=== PATIENT | male | born 1950 | race Caucasian/White ===

== ENCOUNTER → 2018-01-08 09:10 | Outpatient (CLI) | payer MEDICARE, SELFPAY ==
[2018-01-08 12:22] LABS: Absolute Lymphocyte Count 1.36 X10^3/ul (0.83-4.51); Absolute Neutrophil Count 3.7 X10^3/uL (2.0-7.7); Basophil# 0.02 X10^3/uL; Basophil% 0.3 % (0-1); Eosinophil# 0.22 X10^3/uL; Eosinophils% 3.8 % (0-5); Hematocrit 48.1 % (40-54); Hemoglobin 15.8 g/dl (13.0-16.5); Lymphocyte # 1.36 X10^3/ul (4.0); Lymphocyte % 23.6 % (19-41); Mean Corp Hgb Conc 32.8 g/gl (32-36); Mean Corpuscular Hgb 30.2 pg (27.0-32.0); Monocyte# 0.43 X10^3/uL; Monocyte% 7.5 % (0-10); Neutrophil # 3.73 X10^3/uL (2.7-7.7); Neutrophil % 64.6 % (47-70); Platelet Count 257 K/mm3 (150-450); RBC Distribution Width CV 13.3 % (11.6-14.6); RBC Distribution Width SD 44.5 fl (35.1-43.9); Red Blood Count 5.23 M/mm3 (4.6-6.2); White Blood Count 5.8 K/mm3 (4.4-11.0)
[2018-01-08 12:29] LABS: POSITIVE COUNT NO; POSITIVE DIFFERENTIAL NO; POSITIVE MORPHOLOGY NO
[2018-01-08 13:19] LABS: AST(SGOT) 15 U/L (15-37); Alanine Aminotransfer ALT/SGPT 29 U/L (16-61); Albumin, Serum 3.6 g/dL (3.2-5.0); Alkaline Phosphatase 65 U/L (45-117); Anion Gap 7 (5-15); BUN 11 mg/dL (7-18); BUN/Creat Ratio 13.2 RATIO (10-20); Calcium,Total 8.6 mg/dL (8.5-10.1); Chloride 104 mmol/L (98-107); Creatinine, Serum 0.84 mg/dL (0.70-1.30); EST Glomerular Filtration Rate 97 mL/min (>60); Est Glom Filt Rate - Afr Amer 118 mL/min (>60); Globulin 3.6 g/dL (2.2-4.2); Glucose 77 mg/dL (74-106); Potassium 3.7 mmol/L (3.5-5.1); Protein, Total 7.2 g/dL (6.4-8.2); Sodium Level 141 mmol/L (136-145)
== END ==
PROVIDERS: Visit Provider Family Medicine Geriatric Medicine
DX: I10 Essential (primary) hypertension (principal)
CPT/HCPCS: 36415; 80053; 84443; 85025

== ENCOUNTER → 2018-07-28 11:01 | Outpatient (CLI) | payer MEDICARE, SELFPAY ==
[2018-07-28 12:28] LABS: Absolute Lymphocyte Count 1.37 X10^3/ul (0.83-4.51); Absolute Neutrophil Count 4.1 X10^3/uL (2.0-7.7); Basophil# 0.04 X10^3/uL; Basophil% 0.7 % (0-1); Eosinophil# 0.16 X10^3/uL; Eosinophils% 2.7 % (0-5); Hematocrit 43.7 % (40-54); Hemoglobin 15.2 g/dl (13.0-16.5); Lymphocyte # 1.37 X10^3/ul (4.0); Lymphocyte % 22.8 % (19-41); Mean Corp Hgb Conc 34.8 g/gl (32-36); Mean Corpuscular Hgb 31.1 pg (27.0-32.0); Mean Corpuscular Volume 89.5 fL (80-94); Monocyte# 0.38 X10^3/uL; Monocyte% 6.3 % (0-10); Neutrophil # 4.05 X10^3/uL (2.7-7.7); Neutrophil % 67.3 % (47-70); POSITIVE COUNT NO; POSITIVE DIFFERENTIAL NO; POSITIVE MORPHOLOGY NO; Platelet Count 243 K/mm3 (150-450); RBC Distribution Width CV 13.7 % (11.6-14.6); RBC Distribution Width SD 44.9 fl (35.1-43.9); Red Blood Count 4.88 M/mm3 (4.6-6.2)
[2018-07-28 12:51] LABS: ALB/GLOB Ratio 1.1 RATIO (0.9-2.4); AST(SGOT) 12 U/L (15-37); Alanine Aminotransfer ALT/SGPT 23 U/L (16-61); Albumin, Serum 3.6 g/dL (3.2-5.0); Alkaline Phosphatase 52 U/L (45-117); Anion Gap 8 (5-15); BUN 10 mg/dL (7-18); BUN/Creat Ratio 11.6 RATIO (10-20); Calcium,Total 8.7 mg/dL (8.5-10.1); Chloride 107 mmol/L (98-107); Creatinine, Serum 0.86 mg/dL (0.70-1.30); EST Glomerular Filtration Rate 94 mL/min (>60); Est Glom Filt Rate - Afr Amer 113 mL/min (>60); Globulin 3.4 g/dL (2.2-4.2); Glucose 92 mg/dL (74-106); PSA,Total - Annual Screen 1.59 ng/mL (0.00-4.00); Sodium Level 143 mmol/L (136-145); Thyroid Stim Hormone (TSH) 1.38 uIU/mL (0.358-3.74)
[2018-07-28 12:54] LABS: Vitamin D,25 Hydroxy 17.4 ng/mL (29.95-100.01)
[2018-07-30 09:48] LABS: Hep C Antibodies <0.1 s/co ratio (0.0-0.9)
== END ==
PROVIDERS: Visit Provider Family Medicine Geriatric Medicine
DX: I10 Essential (primary) hypertension (principal); E55.9 Vitamin D deficiency, unspecified; Z12.5 Encounter for screening for malignant neoplasm of prostate; Z13.89 Encounter for screening for other disorder
CPT/HCPCS: 36415; 80053; 82306; 84153; 84443; 85025; 86803; G0103

== ENCOUNTER → 2019-02-14 15:43 | Outpatient (CLI) | payer MEDICARE, SELFPAY ==
[2019-02-14 17:17] LABS: Absolute Lymphocyte Count 1.65 X10^3/ul (0.83-4.51); Absolute Neutrophil Count 3.9 X10^3/uL (2.0-7.7); Basophil# 0.04 X10^3/uL; Basophil% 0.6 % (0-1); Eosinophil# 0.27 X10^3/uL; Eosinophils% 4.3 % (0-5); Hematocrit 47.3 % (40-54); Hemoglobin 15.6 g/dl (13.0-16.5); Lymphocyte # 1.65 X10^3/ul (4.0); Lymphocyte % 26.2 % (19-41); Mean Corpuscular Hgb 30.2 pg (27.0-32.0); Mean Corpuscular Volume 91.5 fL (80-94); Mean Platelet Vol. 9.8 fl (6.2-12.0); Monocyte# 0.47 X10^3/uL; Monocyte% 7.5 % (0-10); Neutrophil # 3.87 X10^3/uL (2.7-7.7); Neutrophil % 61.4 % (47-70); Platelet Count 248 K/mm3 (150-450); RBC Distribution Width CV 13.9 % (11.6-14.6); RBC Distribution Width SD 45.8 fl (35.1-43.9); Red Blood Count 5.17 M/mm3 (4.6-6.2); White Blood Count 6.3 K/mm3 (4.4-11.0)
[2019-02-14 17:19] LABS: POSITIVE COUNT NO; POSITIVE DIFFERENTIAL NO; POSITIVE MORPHOLOGY NO
[2019-02-14 17:28] LABS: Vitamin D,25 Hydroxy 22.1 ng/mL (29.95-100.01)
[2019-02-14 17:37] LABS: ALB/GLOB Ratio 1.1 RATIO (0.9-2.4); AST(SGOT) 19 U/L (15-37); Alanine Aminotransfer ALT/SGPT 24 U/L (16-61); Albumin, Serum 3.7 g/dL (3.2-5.0); Alkaline Phosphatase 64 U/L (45-117); Anion Gap 4 (5-15); BUN 12 mg/dL (7-18); BUN/Creat Ratio 13.1 RATIO (10-20); Calcium,Total 8.3 mg/dL (8.5-10.1); Chloride 106 mmol/L (98-107); Creatinine, Serum 0.91 mg/dL (0.70-1.30); EST Glomerular Filtration Rate 87 mL/min (>60); Est Glom Filt Rate - Afr Amer 106 mL/min (>60); Globulin 3.5 g/dL (2.2-4.2); Glucose 85 mg/dL (74-106); Potassium 3.7 mmol/L (3.5-5.1); Protein, Total 7.2 g/dL (6.4-8.2); Sodium Level 140 mmol/L (136-145); Thyroid Stim Hormone (TSH) 1.76 uIU/mL (0.358-3.74)
== END ==
PROVIDERS: Visit Provider Family Medicine Geriatric Medicine
DX: I10 Essential (primary) hypertension (principal); E55.9 Vitamin D deficiency, unspecified
CPT/HCPCS: 36415; 80053; 82306; 84443; 85025

== ENCOUNTER → 2019-08-05 | Outpatient (CLI) | payer MEDICARE, SELFPAY ==
[2019-08-05 12:55] LABS: Absolute Lymphocyte Count 1.33 X10^3/uL (0.83-4.51); Absolute Neutrophil Count 5.9 X10^3/uL (2.0-7.7); Basophil# 0.08 X10^3/uL; Eosinophil# 0.28 X10^3/uL; Eosinophils% 3.4 % (0-5); Hematocrit 49.5 % (40-54); Hemoglobin 16.7 g/dL (13.0-16.5); Lymphocyte # 1.33 X10^3/ul (4.0); Lymphocyte % 16.3 % (19-41); Mean Corp Hgb Conc 33.7 g/dL (32-36); Mean Corpuscular Hgb 30.6 pg (27.0-32.0); Mean Corpuscular Volume 90.7 fL (80-94); Mean Platelet Vol. 9.6 fl (6.2-12.0); Monocyte# 0.54 X10^3/uL; Monocyte% 6.6 % (0-10); NRBC Flagged by Analyzer 0 % (0-5); Neutrophil # 5.92 X10^3/uL (2.7-7.7); Neutrophil % 72.6 % (47-70); Platelet Count 263 K/mm3 (150-450); RBC Distribution Width CV 12.7 % (11.6-14.6); RBC Distribution Width SD 41.7 fl (35.1-43.9); Red Blood Count 5.46 M/mm3 (4.6-6.2); White Blood Count 8.2 K/mm3 (4.4-11.0)
[2019-08-05 13:18] LABS: AST(SGOT) 14 U/L (15-37); Alanine Aminotransfer ALT/SGPT 24 U/L (16-61); Albumin, Serum 3.7 g/dL (3.2-5.0); Alkaline Phosphatase 72 U/L (45-117); Anion Gap 3 (5-15); BUN 11 mg/dL (7-18); BUN/Creat Ratio 12.3 RATIO (10-20); Calcium,Total 8.7 mg/dL (8.5-10.1); Chloride 108 mmol/L (98-107); EST Glomerular Filtration Rate 89 mL/min (>60); Est Glom Filt Rate - Afr Amer 108 mL/min (>60); Globulin 3.6 g/dL (2.2-4.2); Glucose 82 mg/dL (74-106); PSA,Total - Annual Screen 3.54 ng/mL (0.00-4.00); Potassium 3.8 mmol/L (3.5-5.1); Protein, Total 7.3 g/dL (6.4-8.2); Sodium Level 142 mmol/L (136-145); Thyroid Stim Hormone (TSH) 1.48 uIU/mL (0.358-3.74)
[2019-08-05 13:33] LABS: Vitamin D,25 Hydroxy 22.1 ng/mL (29.95-100.01)
== END | disposition home or self-care (01) ==
LOC: POLAB3 10:30
PROVIDERS: Visit Provider Family Medicine Geriatric Medicine
DX: E55.9 Vitamin D deficiency, unspecified (principal); I10 Essential (primary) hypertension; Z12.5 Encounter for screening for malignant neoplasm of prostate
CPT/HCPCS: 36415; 80053; 82306; 84153; 84443; 85025; G0103

== ENCOUNTER → 2020-02-01 11:01 | Outpatient (CLI) | payer MEDICARE, SELFPAY ==
[2020-02-01 12:44] LABS: Absolute Lymphocyte Count 1.62 X10^3/uL (0.83-4.51); Absolute Neutrophil Count 4.8 X10^3/uL (2.0-7.7); Basophil# 0.05 X10^3/uL; Basophil% 0.7 % (0-1); Eosinophil# 0.16 X10^3/uL; Eosinophils% 2.2 % (0-5); Hematocrit 45.6 % (40-54); Hemoglobin 15.4 g/dL (13.0-16.5); Lymphocyte # 1.62 X10^3/ul (4.0); Lymphocyte % 22.3 % (19-41); Mean Corp Hgb Conc 33.8 g/dL (32-36); Mean Corpuscular Hgb 30.4 pg (27.0-32.0); Mean Corpuscular Volume 90.1 fL (80-94); Mean Platelet Vol. 9.7 fl (6.2-12.0); Monocyte# 0.62 X10^3/uL; Monocyte% 8.5 % (0-10); NRBC Flagged by Analyzer 0 % (0-5); Platelet Count 282 K/mm3 (150-450); RBC Distribution Width CV 12.7 % (11.6-14.6); RBC Distribution Width SD 41.7 fl (35.1-43.9); Red Blood Count 5.06 M/mm3 (4.6-6.2); White Blood Count 7.3 K/mm3 (4.4-11.0)
[2020-02-01 13:07] LABS: Vitamin D,25 Hydroxy 22.2 ng/mL
[2020-02-01 13:33] LABS: ALB/GLOB Ratio 1.1 RATIO (0.9-2.4); AST(SGOT) 20 U/L (15-37); Alanine Aminotransfer ALT/SGPT 32 U/L (16-61); Albumin, Serum 3.8 g/dL (3.2-5.0); Alkaline Phosphatase 76 U/L (45-117); Anion Gap 6 (5-15); BUN 17 mg/dL (7-18); BUN/Creat Ratio 17.6 RATIO (10-20); Calcium,Total 8.8 mg/dL (8.5-10.1); Chloride 108 mmol/L (98-107); Creatinine, Serum 0.96 mg/dL (0.70-1.30); EST Glomerular Filtration Rate 82 mL/min (>60); Est Glom Filt Rate - Afr Amer 99 mL/min (>60); Globulin 3.6 g/dL (2.2-4.2); Glucose 100 mg/dL (74-106); Potassium 4.1 mmol/L (3.5-5.1); Protein, Total 7.4 g/dL (6.4-8.2); Sodium Level 140 mmol/L (136-145); Thyroid Stim Hormone (TSH) 1.79 uIU/mL (0.358-3.74)
== END ==
PROVIDERS: Visit Provider Family Medicine Geriatric Medicine
DX: I10 Essential (primary) hypertension (principal); E55.9 Vitamin D deficiency, unspecified
CPT/HCPCS: 36415; 80053; 82306; 84443; 85025

== ENCOUNTER → 2020-08-09 09:13 | Outpatient (CLI) | payer MEDICARE, SELFPAY ==
[2020-08-09 12:36] LABS: Absolute Lymphocyte Count 1.46 X10^3/uL (0.83-4.51); Absolute Neutrophil Count 5.4 X10^3/uL (2.0-7.7); Basophil# 0.07 X10^3/uL; Basophil% 0.9 % (0-1); Eosinophil# 0.23 X10^3/uL; Hemoglobin 16.4 g/dL (13.0-16.5); Lymphocyte # 1.46 X10^3/ul (4.0); Lymphocyte % 18.7 % (19-41); Mean Corp Hgb Conc 33.5 g/dL (32-36); Mean Corpuscular Hgb 30.5 pg (27.0-32.0); Mean Corpuscular Volume 91.2 fL (80-94); Mean Platelet Vol. 9.8 fl (6.2-12.0); Monocyte# 0.57 X10^3/uL; Monocyte% 7.3 % (0-10); NRBC Flagged by Analyzer 0 % (0-5); Neutrophil # 5.44 X10^3/uL (2.7-7.7); Neutrophil % 69.8 % (47-70); Platelet Count 290 K/mm3 (150-450); RBC Distribution Width CV 13.1 % (11.6-14.6); RBC Distribution Width SD 43.9 fl (35.1-43.9); Red Blood Count 5.37 M/mm3 (4.6-6.2); White Blood Count 7.8 K/mm3 (4.4-11.0)
[2020-08-09 12:50] LABS: Vitamin D,25 Hydroxy 29.8 ng/mL
[2020-08-09 13:26] LABS: AST(SGOT) 23 U/L (15-37); Alanine Aminotransfer ALT/SGPT 42 U/L (16-61); Albumin, Serum 3.9 g/dL (3.2-5.0); Alkaline Phosphatase 69 U/L (45-117); Anion Gap 6 (5-15); BUN 15 mg/dL (7-18); BUN/Creat Ratio 15.8 RATIO (10-20); Calcium,Total 9.1 mg/dL (8.5-10.1); Chloride 107 mmol/L (98-107); Creatinine, Serum 0.95 mg/dL (0.70-1.30); EST Glomerular Filtration Rate 83 mL/min (>60); Est Glom Filt Rate - Afr Amer 100 mL/min (>60); Globulin 3.8 g/dL (2.2-4.2); Glucose 84 mg/dL (74-106); PSA,Total - Annual Screen 5.38 ng/mL (0.00-4.00); Potassium 4.2 mmol/L (3.5-5.1); Protein, Total 7.7 g/dL (6.4-8.2); Sodium Level 141 mmol/L (136-145)
== END ==
PROVIDERS: PCP Family Medicine Geriatric Medicine; Visit Provider Family Medicine Geriatric Medicine
DX: E55.9 Vitamin D deficiency, unspecified (principal); I10 Essential (primary) hypertension; Z12.5 Encounter for screening for malignant neoplasm of prostate
CPT/HCPCS: 36415; 80053; 82306; 84153; 84443; 85025; G0103

== ENCOUNTER → 2021-02-08 09:03 | Outpatient (CLI) | payer MEDICARE, SELFPAY ==
[2021-02-08 12:17] LABS: Absolute Lymphocyte Count 1.36 X10^3/uL (0.83-4.51); Absolute Neutrophil Count 4.6 X10^3/uL (2.0-7.7); Basophil# 0.06 X10^3/uL; Basophil% 0.9 % (0-1); Eosinophil# 0.23 X10^3/uL; Eosinophils% 3.4 % (0-5); Hematocrit 51.8 % (40-54); Hemoglobin 17.1 g/dL (13.0-16.5); Lymphocyte # 1.36 X10^3/ul (4.0); Lymphocyte % 20.2 % (19-41); Mean Corpuscular Hgb 30.1 pg (27.0-32.0); Mean Corpuscular Volume 91.2 fL (80-94); Mean Platelet Vol. 9.8 fl (6.2-12.0); Monocyte# 0.45 X10^3/uL; Monocyte% 6.7 % (0-10); NRBC Flagged by Analyzer 0 % (0-5); Neutrophil # 4.62 X10^3/uL (2.7-7.7); Neutrophil % 68.5 % (47-70); Platelet Count 331 K/mm3 (150-450); RBC Distribution Width CV 13.1 % (11.6-14.6); RBC Distribution Width SD 43.9 fl (35.1-43.9); Red Blood Count 5.68 M/mm3 (4.6-6.2); White Blood Count 6.7 K/mm3 (4.4-11.0)
[2021-02-08 12:43] LABS: AST(SGOT) 18 U/L (15-37); Alanine Aminotransfer ALT/SGPT 29 U/L (16-61); Albumin, Serum 3.9 g/dL (3.2-5.0); Alkaline Phosphatase 76 U/L (45-117); Anion Gap 5 (5-15); BUN 19 mg/dL (7-18); BUN/Creat Ratio 18.6 RATIO (10-20); Chloride 106 mmol/L (98-107); Creatinine, Serum 1.02 mg/dL (0.70-1.30); EST Glomerular Filtration Rate 76 mL/min (>60); Est Glom Filt Rate - Afr Amer 93 mL/min (>60); Glucose 80 mg/dL (74-106); Potassium 3.6 mmol/L (3.5-5.1); Protein, Total 7.9 g/dL (6.4-8.2); Sodium Level 142 mmol/L (136-145); Thyroid Stim Hormone (TSH) 1.92 uIU/mL (0.358-3.74)
== END ==
PROVIDERS: PCP Family Medicine Geriatric Medicine; Visit Provider Family Medicine Geriatric Medicine
DX: E55.9 Vitamin D deficiency, unspecified (principal); F52.8 Other sexual dysfunction not due to a substance or known physiological condition; I10 Essential (primary) hypertension
CPT/HCPCS: 36415; 80053; 82306; 84403; 84443; 85025

== ENCOUNTER → 2021-08-21 10:21 | Outpatient (CLI) | payer MEDICARE, SELFPAY ==
[2021-08-21 12:22] LABS: Absolute Lymphocyte Count 1.41 X10^3/uL (0.83-4.51); Absolute Neutrophil Count 5.3 X10^3/uL (2.0-7.7); Basophil# 0.07 X10^3/uL; Basophil% 0.9 % (0-1); Eosinophils% 2.7 % (0-5); Hemoglobin 16.2 g/dL (13.0-16.5); Lymphocyte # 1.41 X10^3/ul (0.83-4.51); Lymphocyte % 18.7 % (19-41); Mean Corp Hgb Conc 33.8 g/dL (32-36); Mean Corpuscular Hgb 30.3 pg (27.0-32.0); Mean Corpuscular Volume 89.7 fL (80-94); Mean Platelet Vol. 9.5 fl (6.2-12.0); Monocyte# 0.56 X10^3/uL; Monocyte% 7.4 % (0-10); NRBC Flagged by Analyzer 0 % (0-5); Neutrophil # 5.27 X10^3/uL (2.7-7.7); Platelet Count 295 K/mm3 (150-450); RBC Distribution Width CV 13.2 % (11.6-14.6); RBC Distribution Width SD 43.2 fl (35.1-43.9); Red Blood Count 5.35 M/mm3 (4.6-6.2); White Blood Count 7.5 K/mm3 (4.4-11.0)
[2021-08-21 12:50] LABS: ALB/GLOB Ratio 0.8 RATIO (0.9-2.4); AST(SGOT) 18 U/L (15-37); Alanine Aminotransfer ALT/SGPT 29 U/L (16-61); Albumin, Serum 3.5 g/dL (3.2-5.0); Alkaline Phosphatase 68 U/L (45-117); Anion Gap 5 (5-15); BUN 19 mg/dL (7-18); BUN/Creat Ratio 19.3 RATIO (10-20); Calcium,Total 9.4 mg/dL (8.5-10.1); Chloride 106 mmol/L (98-107); Creatinine, Serum 0.99 mg/dL (0.70-1.30); EST Glomerular Filtration Rate 79 mL/min (>60); Est Glom Filt Rate - Afr Amer 96 mL/min (>60); Globulin 4.2 g/dL (2.2-4.2); Glucose 73 mg/dL (74-106); Potassium 4.1 mmol/L (3.5-5.1); Protein, Total 7.7 g/dL (6.4-8.2); Sodium Level 141 mmol/L (136-145); Thyroid Stim Hormone (TSH) 1.65 uIU/mL (0.358-3.74)
== END ==
PROVIDERS: PCP Family Medicine Geriatric Medicine; Visit Provider Family Medicine Geriatric Medicine
DX: E55.9 Vitamin D deficiency, unspecified (principal); I10 Essential (primary) hypertension
CPT/HCPCS: 36415; 80053; 82306; 84443; 85025

== ENCOUNTER 2022-02-19 09:44 | Outpatient (CLI) | payer MEDICARE, SELFPAY ==
[2022-02-19 12:27] LABS: Absolute Lymphocyte Count 1.11 X10^3/uL (0.83-4.51); Absolute Neutrophil Count 4.9 X10^3/uL (2.0-7.7); Basophil# 0.07 X10^3/uL; Eosinophil# 0.18 X10^3/uL; Eosinophils% 2.6 % (0-5); Hematocrit 45.7 % (40-54); Hemoglobin 15.5 g/dL (13.0-16.5); Lymphocyte # 1.11 X10^3/ul (0.83-4.51); Lymphocyte % 16.1 % (19-41); Mean Corp Hgb Conc 33.9 g/dL (32-36); Mean Corpuscular Hgb 30.5 pg (27.0-32.0); Mean Corpuscular Volume 89.8 fL (80-94); Mean Platelet Vol. 9.7 fl (6.2-12.0); Monocyte# 0.62 X10^3/uL; NRBC Flagged by Analyzer 0 % (0-5); Neutrophil # 4.88 X10^3/uL (2.7-7.7); Platelet Count 299 K/mm3 (150-450); RBC Distribution Width SD 42.7 fl (35.1-43.9); Red Blood Count 5.09 M/mm3 (4.6-6.2); White Blood Count 6.9 K/mm3 (4.4-11.0)
[2022-02-19 12:41] LABS: Vitamin D,25 Hydroxy 26.9 ng/mL
[2022-02-19 12:52] LABS: ALB/GLOB Ratio 0.9 RATIO (0.9-2.4); AST(SGOT) 18 U/L (15-37); Alanine Aminotransfer ALT/SGPT 31 U/L (16-61); Albumin, Serum 3.7 g/dL (3.2-5.0); Alkaline Phosphatase 64 U/L (45-117); Anion Gap 6 (5-15); BUN 23 mg/dL (7-18); BUN/Creat Ratio 22.5 RATIO (10-20); Calcium,Total 9.4 mg/dL (8.5-10.1); Chloride 105 mmol/L (98-107); Creatinine, Serum 1.02 mg/dL (0.70-1.30); EST Glomerular Filtration Rate 76 mL/min (>60); Est Glom Filt Rate - Afr Amer 92 mL/min (>60); Globulin 3.9 g/dL (2.2-4.2); Glucose 89 mg/dL (74-106); Potassium 3.7 mmol/L (3.5-5.1); Protein, Total 7.6 g/dL (6.4-8.2); Sodium Level 140 mmol/L (136-145); Thyroid Stim Hormone (TSH) 2.22 uIU/mL (0.358-3.74)
== END 2022-02-19 23:59 | disposition home or self-care (01) ==
LOC: POLAB3 09:45
PROVIDERS: PCP Family Medicine Geriatric Medicine; Visit Provider Family Medicine Geriatric Medicine
DX: E55.9 Vitamin D deficiency, unspecified (principal); I10 Essential (primary) hypertension
CPT/HCPCS: 36415; 80053; 82306; 84443; 85025

== ENCOUNTER 2022-03-19 09:00 | Outpatient (RCR) | payer MEDICARE, SELFPAY ==
--- NOTE | 2022-02-27 08:44 | HP.PTEVAL ---
Patient's Visit Information TYRONE CARUSO is a 71 year old M referred to Physical Therapy by Dr. Eriberto Her MD with a diagnosis of R groin strain. Date of Evaluation: 02/27/22 Physical Therapist: Eric Weber DPT - Visit Plan Frequency: 1-2x /Week Duration: 4 Weeks Plan: Start with PA R hip mobs to restore hip extension, progress to joint mobs with distraction multidirectional. Hip flexor, quad, HS stretching. Add in glute and hip abd strengthening. May use long axis distraction as pain relieving manuever. Add in gait instruction. HEP 02/27/22: long sitting HS stretch 3x30- tight, supine clamshell PTB 3x10, supine bridge 3x10, standing hip flexor stretch 3x30- tight - Subjective Pt. is here today for his initial evaluation with diagnosis of R groin strain. He reports no mechanism of injury, but has been progressively getting worse. He did report working a local [employer] and maybe lifting there irritated there. He has increased pain with with rolling over in bed, getting up and down. Stiffness reported in AMs and with prolonged sitting. He does ambulate with a limp secondary to pain. He has tried some OTC medications with mild relief. No N/T in either LE. Pt. reports pain with twisting as well. He is retired. He is hopeful to reduce symptoms in order to get back to all recreational activities. He does report riding his bike outside - Pain R groin region Pain Intensity (Out of 10): 1 Pain Intensity Range: 0, 6 - Objective POSTURE: Pt. has slight increase in wt. shifting to L side. Normal iliac crest heights. PALPATION: Pt. has tenderness at anterior hip, including hip flexor and rectus femoris tendon. NEURO: Pt has normal DTR of B Achilles and Patellar tendons. Pt. has normal sensation to light and sharp touch. Pt. is able to rise on heels and toes without issues. ROM: L hip: flexion 110deg, abd 40deg, ER 45deg, IR 30deg, ext 15deg. No pain noted with L hip testing. R hip: flexion 80deg increase in groin pain, abd 30deg (tightness noted), ext 0deg increase in groin pain, ER 40deg (tightness noted), IR 0deg increase in groin pain. MMT: distal LEs 5/5 throughout. L hip: flexion 25#, abd 18#, ext 12#. R hip: flexion 12# increase NW, abd 12# increase NE, ext 5# increase NW. GAIT: Pt. ambulates without AD. He tends to rotation through lumbar spine to R side during L stance phase. He tries to avoid R hip extension secondary to pain and stiffness. He does have an antalgic pattern during R stance phase as well. - Special Tests R Hip Scour: Positive R Hip CASE - Intraarticular Pathology: Positive R Hip FADDIR - Labrum: Positive - Balance/Special Test Scores Lower Extremity Functional Score: 51 - Goals Goal 1:: LTG: Pt. to be I with HEP for hip strengthening, and ROM. Goal Time Frame: 4-6 Weeks Goal 2:: STG: pt. to sleep throughout the night without increase in symptoms. Goal Time Frame: 2-4 Weeks Goal 3:: LTG: pt. to have increased R hip extension to 10deg, IR to 10deg, and flexion to 90deg with out increase in symptoms. Goal Time Frame: 4-6 Weeks Goal 4:: LTG: pt. to ambulate with normal gait pattern with reduced trunk rotation to make up for lack of R hip extension. Goal Time Frame: 4-6 Weeks Goal 5:: LTG: Pt. to negotiate steps with 1 HR without increase in symptoms. Goal Time Frame: 4-6 Weeks - Rehabilitation Potential Physical Therapy Diagnosis: Pt. has signs and symptoms consistent with R hip pain. After doing his testing, he appears to have signs of more R hip OA secondary to reports of stiffness in AMs and after prolonged sitting; very limited flexion, extension and IR motions. He would benefit from PT to work on restoring his motion, progressing his glute/hip strength and restoring is normal gait pattern. Rehabilitation Potential: Good - Anticipated Interventions Patient/Client Instruction: Educate patient on: Condition, Plan of Care, Risk Factors, Benefits of Fitness Program For the Purpose of:: To improve health and function, To foster healthy habits, To improve decision making, To facilitate caregiver knowledge, To improve self management, To prevent re-injury, To improve ability to perform tasks related to life management Manual Therapy Techniques to Include: Mobilization, Passive ROM For the Purpose of:: To decrease pain, To decrease swelling/inflammation, To increase ROM Thank you for the opportunity to evaluate your patient. For Medicare and Medicare HMO plans, please review the plan of care and approve it. It will need to be FAXED BACK to us at [phone] for Medicare purposes. For Medicare only, by signing this I certify the plan of care. Please let me know if there are questions or concerns regarding this plan of care. Physician Signature: Date:
== END 2022-03-19 19:00 | disposition home or self-care (01) ==
LOC: PT 09:00
PROVIDERS: PCP Family Medicine Geriatric Medicine; Referring Provider Family Medicine Geriatric Medicine; Visit Provider Family Medicine Geriatric Medicine
DX: S76.011D Strain of muscle, fascia and tendon of right hip, subsequent encounter (principal)
CPT/HCPCS: 97110; 97140; 97161

== ENCOUNTER → 2022-08-28 | Outpatient (CLI) | payer MEDICARE, SELFPAY ==
[2022-08-28 17:01] LABS: Absolute Lymphocyte Count 1.72 X10^3/uL (0.83-4.51); Absolute Neutrophil Count 6.5 X10^3/uL (2.0-7.7); Basophil# 0.08 X10^3/uL; Basophil% 0.8 % (0-1); Eosinophil# 0.34 X10^3/uL; Eosinophils% 3.6 % (0-5); Hematocrit 44.9 % (40-54); Hemoglobin 15.5 g/dL (13.0-16.5); Lymphocyte # 1.72 X10^3/ul (0.83-4.51); Lymphocyte % 18.1 % (19-41); Mean Corp Hgb Conc 34.5 g/dL (32-36); Mean Corpuscular Hgb 31.1 pg (27.0-32.0); Mean Platelet Vol. 9.5 fl (6.2-12.0); Monocyte# 0.82 X10^3/uL; Monocyte% 8.6 % (0-10); NRBC Flagged by Analyzer 0 % (0-5); Neutrophil % 68.6 % (47-70); Platelet Count 309 K/mm3 (150-450); RBC Distribution Width CV 13.4 % (11.6-14.6); RBC Distribution Width SD 44.1 fl (35.1-43.9); Red Blood Count 4.99 M/mm3 (4.6-6.2); White Blood Count 9.5 K/mm3 (4.4-11.0)
[2022-08-28 17:04] LABS: Vitamin D,25 Hydroxy 50.4 ng/mL
[2022-08-28 17:17] LABS: AST(SGOT) 21 U/L (15-37); Alanine Aminotransfer ALT/SGPT 34 U/L (16-61); Albumin, Serum 3.7 g/dL (3.2-5.0); Alkaline Phosphatase 61 U/L (45-117); Anion Gap 10 (5-15); BUN 23 mg/dL (7-18); BUN/Creat Ratio 20.2 RATIO (10-20); Calcium,Total 8.9 mg/dL (8.5-10.1); Chloride 106 mmol/L (98-107); Creatinine, Serum 1.14 mg/dL (0.70-1.30); EST Glomerular Filtration Rate 67 mL/min (>60); Est Glom Filt Rate - Afr Amer 81 mL/min (>60); Globulin 3.6 g/dL (2.2-4.2); Glucose 109 mg/dL (74-106); Potassium 3.8 mmol/L (3.5-5.1); Protein, Total 7.3 g/dL (6.4-8.2); Sodium Level 142 mmol/L (136-145); Thyroid Stim Hormone (TSH) 2.08 uIU/mL (0.358-3.74)
== END | disposition home or self-care (01) ==
LOC: POLAB3 12:54
PROVIDERS: PCP Family Medicine Geriatric Medicine; Visit Provider Family Medicine Geriatric Medicine
DX: E55.9 Vitamin D deficiency, unspecified (principal); I10 Essential (primary) hypertension
CPT/HCPCS: 36415; 80053; 82306; 84443; 85025

== ENCOUNTER → 2023-02-26 | Outpatient (CLI) | payer MEDICARE, SELFPAY ==
[2023-02-26 17:24] LABS: Absolute Lymphocyte Count 1.63 X10^3/uL (0.83-4.51); Absolute Neutrophil Count 5.1 X10^3/uL (2.0-7.7); Basophil# 0.07 X10^3/uL; Basophil% 0.9 % (0-1); Eosinophil# 0.24 X10^3/uL; Eosinophils% 3.1 % (0-5); Hematocrit 45.2 % (40-54); Hemoglobin 15.3 g/dL (13.0-16.5); Lymphocyte # 1.63 X10^3/ul (0.83-4.51); Lymphocyte % 21.4 % (19-41); Mean Corp Hgb Conc 33.8 g/dL (32-36); Mean Corpuscular Hgb 30.8 pg (27.0-32.0); Mean Corpuscular Volume 91.1 fL (80-94); Mean Platelet Vol. 9.3 fl (6.2-12.0); Monocyte% 7.9 % (0-10); NRBC Flagged by Analyzer 0 % (0-5); Neutrophil # 5.08 X10^3/uL (2.7-7.7); Neutrophil % 66.6 % (47-70); Platelet Count 287 K/mm3 (150-450); RBC Distribution Width CV 13.3 % (11.6-14.6); RBC Distribution Width SD 44.7 fl (35.1-43.9); Red Blood Count 4.96 M/mm3 (4.6-6.2); White Blood Count 7.6 K/mm3 (4.4-11.0)
[2023-02-26 17:43] LABS: AST(SGOT) 20 U/L (15-37); Alanine Aminotransfer ALT/SGPT 35 U/L (16-61); Albumin, Serum 3.5 g/dL (3.2-5.0); Alkaline Phosphatase 71 U/L (45-117); Anion Gap 6 (5-15); BUN 20 mg/dL (7-18); BUN/Creat Ratio 20.7 RATIO (10-20); Calcium,Total 8.8 mg/dL (8.5-10.1); Chloride 104 mmol/L (98-107); Creatinine, Serum 0.97 mg/dL (0.70-1.30); EST Glomerular Filtration Rate 81 mL/min (>60); Est Glom Filt Rate - Afr Amer 98 mL/min (>60); Globulin 3.5 g/dL (2.2-4.2); Glucose 104 mg/dL (74-106); Potassium 3.4 mmol/L (3.5-5.1); Sodium Level 140 mmol/L (136-145); Thyroid Stim Hormone (TSH) 1.42 uIU/mL (0.358-3.74)
[2023-02-26 17:56] LABS: Vitamin D,25 Hydroxy 32.6 ng/mL
== END | disposition home or self-care (01) ==
LOC: POLAB3 14:17
PROVIDERS: PCP Family Medicine Geriatric Medicine; Visit Provider Family Medicine Geriatric Medicine
DX: E55.9 Vitamin D deficiency, unspecified (principal); I10 Essential (primary) hypertension; F52.8 Other sexual dysfunction not due to a substance or known physiological condition
CPT/HCPCS: 36415; 80053; 82306; 84403; 84443; 85025

== ENCOUNTER → 2024-03-16 | Outpatient (CLI) | payer MEDICARE, SELFPAY ==
[2024-03-16 11:36] LABS: Absolute Lymphocyte Count 1.51 X10^3/uL (0.83-4.51); Absolute Neutrophil Count 4.5 X10^3/uL (2.0-7.7); Basophil# 0.05 X10^3/uL; Basophil% 0.7 % (0-1); Eosinophil# 0.19 X10^3/uL; Eosinophils% 2.8 % (0-5); Hematocrit 44.2 % (40-54); Hemoglobin 14.8 g/dL (13.0-16.5); Lymphocyte # 1.51 X10^3/ul (0.83-4.51); Lymphocyte % 22.2 % (19-41); Mean Corp Hgb Conc 33.5 g/dL (32-36); Mean Corpuscular Hgb 30.7 pg (27.0-32.0); Mean Corpuscular Volume 91.7 fL (80-94); Mean Platelet Vol. 9.1 fl (6.2-12.0); Monocyte# 0.53 X10^3/uL; Monocyte% 7.8 % (0-10); NRBC Flagged by Analyzer 0 % (0-5); Neutrophil # 4.49 X10^3/uL (2.7-7.7); Neutrophil % 66.2 % (47-70); Platelet Count 263 K/mm3 (150-450); RBC Distribution Width CV 13.1 % (11.6-14.6); Red Blood Count 4.82 M/mm3 (4.6-6.2); White Blood Count 6.8 K/mm3 (4.4-11.0)
[2024-03-16 12:30] LABS: Vitamin D,25 Hydroxy 27.8 ng/mL
[2024-03-16 14:27] LABS: ALB/GLOB Ratio 1.1 RATIO (0.9-2.4); AST(SGOT) 21 U/L (15-37); Alanine Aminotransfer ALT/SGPT 28 U/L (16-61); Albumin, Serum 3.8 g/dL (3.2-5.0); Alkaline Phosphatase 62 U/L (45-117); Anion Gap 4 (5-15); BUN 20 mg/dL (7-18); BUN/Creat Ratio 19.8 RATIO (10-20); Calcium,Total 9.1 mg/dL (8.5-10.1); Chloride 106 mmol/L (98-107); Creatinine, Serum 1.01 mg/dL (0.70-1.30); EST Glomerular Filtration Rate 77 mL/min (>60); Est Glom Filt Rate - Afr Amer 93 mL/min (>60); Globulin 3.6 g/dL (2.2-4.2); Glucose 90 mg/dL (74-106); Potassium 4.2 mmol/L (3.5-5.1); Protein, Total 7.4 g/dL (6.4-8.2); Sodium Level 140 mmol/L (136-145); Thyroid Stim Hormone (TSH) 1.81 uIU/mL (0.358-3.74)
== END | disposition home or self-care (01) ==
LOC: POLAB3 10:38
PROVIDERS: PCP Family Medicine Geriatric Medicine; Visit Provider Family Medicine Geriatric Medicine
DX: I10 Essential (primary) hypertension (principal); E55.9 Vitamin D deficiency, unspecified
CPT/HCPCS: 36415; 80053; 82306; 84443; 85025

== ENCOUNTER → 2024-09-23 | Outpatient (CLI) | payer MEDICARE, SELFPAY ==
[2024-09-23 10:32] LABS: Absolute Lymphocyte Count 2.21 X10^3/uL (0.83-4.51); Absolute Neutrophil Count 7.6 X10^3/uL (2.0-7.7); Basophil# 0.06 X10^3/uL; Basophil% 0.5 % (0-1); Eosinophil# 0.27 X10^3/uL; Eosinophils% 2.5 % (0-5); Hemoglobin 16.5 g/dL (13.0-16.5); Lymphocyte # 2.21 X10^3/ul (0.83-4.51); Lymphocyte % 20.3 % (19-41); Mean Corp Hgb Conc 34.4 g/dL (32-36); Mean Corpuscular Hgb 31.1 pg (27.0-32.0); Mean Corpuscular Volume 90.4 fL (80-94); Mean Platelet Vol. 8.8 fl (6.2-12.0); Monocyte% 6.4 % (0-10); NRBC Flagged by Analyzer 0 % (0-5); Neutrophil # 7.56 X10^3/uL (2.7-7.7); Neutrophil % 69.3 % (47-70); Platelet Count 405 K/mm3 (150-450); RBC Distribution Width CV 12.9 % (11.6-14.6); RBC Distribution Width SD 42.7 fl (35.1-43.9); Red Blood Count 5.31 M/mm3 (4.6-6.2); White Blood Count 10.9 K/mm3 (4.4-11.0)
[2024-09-23 10:58] LABS: Vitamin D,25 Hydroxy 21.4 ng/mL
[2024-09-23 11:35] LABS: ALB/GLOB Ratio 0.9 RATIO (0.9-2.4); AST(SGOT) 19 U/L (15-37); Alanine Aminotransfer ALT/SGPT 43 U/L (16-61); Albumin, Serum 3.7 g/dL (3.2-5.0); Alkaline Phosphatase 63 U/L (45-117); Anion Gap 6 (5-15); BUN 27 mg/dL (7-18); BUN/Creat Ratio 25.2 RATIO (10-20); Calcium,Total 9.5 mg/dL (8.5-10.1); Chloride 103 mmol/L (98-107); Creatinine, Serum 1.07 mg/dL (0.70-1.30); EST Glomerular Filtration Rate 72 mL/min (>60); Est Glom Filt Rate - Afr Amer 87 mL/min (>60); Globulin 3.9 g/dL (2.2-4.2); Glucose 94 mg/dL (74-106); Potassium 3.8 mmol/L (3.5-5.1); Protein, Total 7.6 g/dL (6.4-8.2); Sodium Level 139 mmol/L (136-145)
== END | disposition home or self-care (01) ==
LOC: LAB 09:31
PROVIDERS: PCP Family Medicine Geriatric Medicine; Referring Provider Family Medicine Geriatric Medicine; Visit Provider Family Medicine Geriatric Medicine
DX: I10 Essential (primary) hypertension (principal); E55.9 Vitamin D deficiency, unspecified
CPT/HCPCS: 36415; 80053; 82306; 84443; 85025

== ENCOUNTER → 2025-02-20 | Outpatient (CLI) | payer MEDICARE, SELFPAY ==
--- NOTE | 2025-02-20 16:12 | RAD_ITS ---
EXAM: Knee four views left CLINICAL HISTORY: Pain COMPARISON: None available TECHNIQUE: Four views of the left knee; AP, lateral, tunnel and sunrise views FINDINGS: No fracture, dislocation or joint effusion. Appearance of mild joint space narrowing at the medial compartment. Otherwise the joint spaces appear within limits. No osteophyte formation, osseous lesion or periosteal reaction identified. Soft tissues appear within limits. RAD/Knee 4 or More Views IMPRESSION: Suggestion of mild medial compartment joint space narrowing. Study otherwise a ppears within limits. Reading Location: [id number]
--- NOTE | 2025-02-20 16:12 | RAD_ITS ---
EXAM: XR Lumbosacral Spine Flexion/Extension Only, 2 or 3 Views CLINICAL INDICATION: LOW BACK PAIN TECHNIQUE: Lateral flexion/extension views of the lumbar spine and sacrum. COMPARISON: No relevant prior studies available. FINDINGS: VERTEBRAE: Mild vertebral height loss of L3 and L4 vertebral bodies. Multilevel endplate degenerative changes and disc disease of L1-S1. Moderate facet arthropathy L4-S1. No acute fracture. Normal sagittal alignment. No instability. SACRUM/COCCYX: Unremarkable as visualized. No acute fracture. DISC SPACES: No acute findings. No significant narrowing. SOFT TISSUES: Unremarkable. RAD/L/S Spine Min 4 Views IMPRESSION: Degenerative changes as above. Reading Location: [facility]
== END | disposition home or self-care (01) ==
LOC: RAD 16:11
PROVIDERS: PCP Family Medicine Geriatric Medicine; Referring Provider Family Medicine Geriatric Medicine; Visit Provider Family Medicine Geriatric Medicine
DX: M54.50 Low back pain, unspecified (principal); M25.562 Pain in left knee
CPT/HCPCS: 72110; 73564

== ENCOUNTER → 2025-04-05 | Outpatient (CLI) | payer MEDICARE, SELFPAY ==
[2025-04-05 11:00] LABS: Absolute Lymphocyte Count 1.57 X10^3/uL (0.83-4.51); Absolute Neutrophil Count 6.2 X10^3/uL (2.0-7.7); Basophil# 0.06 X10^3/uL; Basophil% 0.7 % (0-1); Eosinophil# 0.16 X10^3/uL; Eosinophils% 1.8 % (0-5); Hematocrit 45.7 % (40-54); Hemoglobin 15.8 g/dL (13.0-16.5); Lymphocyte # 1.57 X10^3/ul (0.83-4.51); Mean Corp Hgb Conc 34.6 g/dL (32-36); Mean Corpuscular Hgb 30.9 pg (27.0-32.0); Mean Corpuscular Volume 89.3 fL (80-94); Mean Platelet Vol. 8.9 fl (6.2-12.0); Monocyte# 0.72 X10^3/uL; Monocyte% 8.3 % (0-10); NRBC Flagged by Analyzer 0 % (0-5); Neutrophil # 6.17 X10^3/uL (2.7-7.7); Neutrophil % 70.7 % (47-70); Platelet Count 312 K/mm3 (150-450); RBC Distribution Width CV 13.2 % (11.6-14.6); Red Blood Count 5.12 M/mm3 (4.6-6.2); White Blood Count 8.7 K/mm3 (4.4-11.0)
[2025-04-05 11:37] LABS: ALB/GLOB Ratio 1.3 RATIO (0.9-2.4); AST(SGOT) 24 U/L (<=37); Alanine Aminotransfer ALT/SGPT 24 U/L (<=46); Alkaline Phosphatase 63 U/L (40-129); Anion Gap 10 (5-15); BUN 18 mg/dL (4-19); BUN/Creat Ratio 17.7 RATIO (10-20); Calcium,Total 9.7 mg/dL (7.6-11.0); Carbon Dioxide 26.8 mmol/L (21.0-32.0); Chloride 102 mmol/L (98-108); EST Glomerular Filtration Rate 78 (>60); Glucose 95 mg/dL (70-99); Potassium 4.1 mmol/L (3.3-5.1); Protein, Total 7.1 g/dL (5.9-8.4); Sodium Level 140 mmol/L (133-145); Total Bilirubin 0.55 mg/dL (0.00-1.30)
== END | disposition home or self-care (01) ==
LOC: LAB 09:53
PROVIDERS: PCP Family Medicine Geriatric Medicine; Referring Provider Family Medicine Geriatric Medicine; Visit Provider Family Medicine Geriatric Medicine
DX: I10 Essential (primary) hypertension (principal); E55.9 Vitamin D deficiency, unspecified
CPT/HCPCS: 36415; 80053; 84443; 85025

== ENCOUNTER → 2025-05-08 | Outpatient (CLI) | payer MEDICARE, SELFPAY ==
--- NOTE | 2025-05-08 10:00 | RAD_ITS ---
PROCEDURE: ANKLE MIN 3 VIEWS 05/08/2025 REASON FOR EXAM: PAIN IN RIGHT ANKLE AND SWELLING TECHNIQUE: Three views of the right ankle were obtained. COMPARISON: None. FINDINGS: There is no evidence of fracture or dislocation. There are no significant joint space abnormalities. There is a large plantar spur. The periarticular soft tissues are normal. RAD/Ankle min 3 Views IMPRESSION: Normal right ankle. Heel spur. Reading Location: [place] [id number]
[2025-05-08 11:02] LABS: Erythrocyte Sedimentation Rate 16 mm/hr (0-20)
[2025-05-08 11:06] LABS: Absolute Lymphocyte Count 1.82 X10^3/uL (0.83-4.51); Absolute Neutrophil Count 7.4 X10^3/uL (2.0-7.7); Basophil# 0.06 X10^3/uL; Basophil% 0.6 % (0-1); Eosinophil# 0.15 X10^3/uL; Eosinophils% 1.4 % (0-5); Hematocrit 44.8 % (40-54); Hemoglobin 15.5 g/dL (13.0-16.5); Lymphocyte # 1.82 X10^3/ul (0.83-4.51); Lymphocyte % 17.5 % (19-41); Mean Corp Hgb Conc 34.6 g/dL (32-36); Mean Corpuscular Hgb 31.4 pg (27.0-32.0); Mean Corpuscular Volume 90.9 fL (80-94); Mean Platelet Vol. 9.1 fl (6.2-12.0); Monocyte# 0.92 X10^3/uL; Monocyte% 8.9 % (0-10); NRBC Flagged by Analyzer 0 % (0-5); Neutrophil % 71.3 % (47-70); Platelet Count 318 K/mm3 (150-450); RBC Distribution Width CV 13.6 % (11.6-14.6); RBC Distribution Width SD 45.5 fl (35.1-43.9); Red Blood Count 4.93 M/mm3 (4.6-6.2); White Blood Count 10.4 K/mm3 (4.4-11.0)
[2025-05-08 11:44] LABS: Anion Gap 11 (5-15); BUN 20 mg/dL (4-19); BUN/Creat Ratio 19.1 RATIO (10-20); Calcium,Total 9.6 mg/dL (7.6-11.0); Carbon Dioxide 28.4 mmol/L (21.0-32.0); Chloride 101 mmol/L (98-108); Creatinine, Serum 1.06 mg/dL (0.70-1.20); EST Glomerular Filtration Rate 73 (>60); Glucose 98 mg/dL (70-99); Potassium 3.7 mmol/L (3.3-5.1); Sodium Level 140 mmol/L (133-145)
--- OUTSIDE RECORDS SUMMARY | 2025-05-08 22:06 | XMS RPT_ITS | CCD ---
Author Organization [facility] Care Team Providers Care Medical Safety Director Name Role Phone Unavailable Primary Care Provider Unavailabl e SELF Referring Unavailable NATHALY RODRIGEZ Attending Unavailable PADMINI PARRA Attending Unavailable Unavailable Primary Care Provider Unavailmauri Her MD, Dr. Eriberto Clay Primary Care Provider Arden LÓPEZ, Dr. Eriberto Clay Attending Provider Arden LÓPEZ, Dr. Eriberto Clay Referring Provider [phone] Mike Jaime Attending Provider Redd LÓPEZ, Dr. Jae Johnson Attending Provider Redd LÓPEZ, Dr. Jae Johnson Referring Provider Redd LÓPEZ, Dr. Jae Johnson Attending Provider Redd LÓPEZ, Dr. Jae Johnson Referring Provider Arden, Eriberto Chi Primary Care Unavailable Arden, Eriberto Chi Attending Unavailable Arden, Eriberto Chi Referring Unavailable Arden, Eriberto Chi Primary Care Unavailable Arden, Eriberto Chi Attending Unavailable Arden, Eriberto Chi Referring Unavailable Arden, Eriberto Chi Attending Unavailable Arden, Eriberto Chi Referring Unavailable Arden, Eriberto Chi Primary Care Unavailable Arden, Eriberto Chi Primary Care Unavailable Jae Rainey Attending Unavailable Jae Rainey Referring Unavailable Arden, Eriberto Chi Primary Care Unavailable Mike Jaime Attending Unavailable Arden, Eriberto Chi Referring Unavailable Mike Jaime Attending Unavailable Arden, Eriberto Chi Referring Unavailable Arden, Eriberto Chi Primary Care Unavailable Arden, Eriberto Chi Primary Care Unavailable Kamar Quinones Attending Unavailable Arden, Eriberto Chi Referring Unavailable Medications Current Medications Medication Drug Class(es) Dates Sig (Normalized) Sig (Original) CPAP/BIPAP/OTHER (5 sources) Start: 01-01-2024 End: 05-18-2051 CPAP/BIPAP/OTHER Supplies : Settings 8 - 15 cm H2O, suitable mask per pt preference, chin strap, head gear, humidity, tubing, lifetime supplies. 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 1 Each 0 01/01/2024 05/18/2051 Active Start: 01-28-2023 End: 06-14-2050 CPAP/BIPAP/OTHER Type .CPAPS ettings into a note to see current settings/supplies/DME information. 1 Each 0 01/28/2023 06/14/2050 Active Comment on above: Type .CPAPSettings i nto a note to see current settings/supplies/DME information. Supplies : Settings 8 - 15 cm H2O, suitable mask per pt preference, chin strap, head gear, humidity, tubing, lifetime supplies. 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 Ipratropium [place] 21 mcg (0.03 %) spray,non-aerosol (2 sources) Start: Ipratropium [place] 21 mcg (0.03 %) spray,non-aerosol Active 2 NMA INTRANASAL 2 to 3 times per day as needed for postnasal drainage March 03, 2025 12:00am administer into each nostril valsartan 40 mg oral tablet (6 sources) Angiotensin 2 Receptor Jeannie Start: take 1 tablet by mouth twice daily Valsartan 40 mg tablet Active 40 mg PO TWICE A DAY April 25, 2022 12:00am Completed/Discontinued Medications Medication Drug Class(es) Dates Sig (Normalized) Sig (Original) azithromycin 250 mg oral tablet (2 sources) Macrolide Antimicrobial Start: 03-03-2025 End: 04-27-2025 take 2-5 tablets by mouth once daily Azithromycin 250 mg tablet Discontinued 0 PO .COMPLEX March 03, 2025 12:00am April 27, 2025 8:17am take 500 mg today (day 1), then 250 mg for 4 days (days 2-5) PO benzonatate 200 mg oral capsule (3 sources) Non-narcotic Antitussive Start: 09-16-2024 End: 03-03-2025 take 1 capsule by mouth three times daily as needed for cough Benzonatate 200 mg capsule Discontinued 200 mg PO THREE TIMES A DAY as needed for cough September 16, 2024 12:00am March 03, 2025 4:06pm cholecalciferol 1.25 mg oral capsule (7 sources) Vitamin D Start: 04-24-2022 End: 07-11-2022 take 1 capsule by mouth every week cholecalciferol, Vitamin D3, (VITAMIN D3) 1,250 mcg (50,000 unit) cap capsule Take 1 capsule by mouth one time a week. 4 capsule 0 07/11/2022 Active Comment on above: Take 1 capsule by [facility] one time a week. citalopram 10 mg oral tablet (8 sources) Serotonin Reuptake Inhibitor Start: 08-21-2021 citalopram hydrobromide (CELEXA) 10 mg tablet CPAP (9 sources) Start: 03-28-2022 CPAP Pressure change to Settings 8 - 15 cm H2O, EPR to 3 at fulltime, Response to SOFT, suitable mask per pt preference, chin strap, head gear, humidity, heated tubing (JUSTUS), lifetime supplies. 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 1 Each 03/28/2022 Active Start: 12-13-2021 End: 03-28-2022 CPAP Pressure change to Sett ings 10 - 15 cm H2O, suitable mask per pt preference, chin strap, head gear, humidity, heated tubing (JUSTUS), lifetime supplies. 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 1 Each 12/13/2021 03/28/2022 Discontinued Comment on above: Pressure change to S ettings 8 - 15 cm H2O, EPR to 3 at fulltime, Response to SOFT, suitable mask per pt preference, chin strap, head gear, humidity, heated tubing (JUSTUS), lifetime supplies. 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 Pressure change to S ettings 10 - 15 cm H2O, suitable mask per pt preference, chin strap, head gear, humidity, heated tubing (JUSTUS), lifetime supplies. 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 hydroCHLOROthiazide 12.5 mg / valsartan 160 mg oral tablet (8 sources) Thiazide Diuretic, Angiotensin 2 Receptor Jeannie Start: 2020 Valsartan-hydroCHLOROth iazide 160-12.5 mg per tablet methylPREDNISolone 4 mg oral tablet (5 sources) Corticosteroid Start: 2023 End: 2024 take 1 tablet by mouth once Methylprednisolone (Medrol (Ahmet)) 4 mg tablets,dose pack Discontinued 4 mg PO per package directions 21 6 March 03, 2025 12:00am March 08, 2025 12:00am March 09, 2025 12:11am Problems Problem Classification Problem Date Documented Date Episodic/Chronic Acute bronchitis (5 sources) Acute bronchitis; Translations: [Acute bronchitis, unspecified] 09-16-2024 Episodic Essential hypertension (1 source) Essential (primary) hypertension; Translations: [Essential (primary) hypertension] Onset: 04-10-2025 Chronic Genitourinary symptoms and ill-defined conditions (1 source) Nocturia; Translations: [Nocturia] Episodic Immunizations and screening for infectious disease (12 sources) Patient encounter status; Translations: [Encounter for screening for COVID-19] 04-25-2022 Episodic Malaise and fatigue (1 source) Fatigue; Translations: [Other fatigue] Episodic Nutritional deficiencies (1 source) Vitamin D deficiency; Translations: [Vitamin D deficiency, unspecified] Chronic Osteoarthritis (1 source) 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, left hip; Translations: [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, left hip] Onset: 05-04-2025 Chronic Other connective tissue disease (1 source) Pain in left foot; Translations: [Pain in left foot] 07-22-2021 Episodic Other ear and sense organ disorders (3 sources) Impacted cerumen; Translations: [Impacted cerumen, right ear] 09-16-2024 Episodic Other lower respiratory disease (1 source) Snoring; Translations: [Snoring] Episodic Other lower respiratory disease (1 source) Apnea; Translations: [Apnea, not elsewhere classified] Episodic Residual codes; unclassified (11 sources) Obstructive sleep apnea syndrome; Translations: [Obstructive sleep apnea (adult) (pediatric)] Onset: 08-23-2021 Chronic Residual codes; unclassified (1 source) Periodic limb movement disorder; Translations: [Periodic limb movement disorder] Chronic Residual codes; unclassified (1 source) Daytime somnolence; Translations: [Other hypersomnia] Chronic Unclassified (1 source) Low back pain, unspecified; Translations: [Low back pain, unspecified] Onset: 02-25-2025 Results Test Name Value Interpretation Reference Range Facility Urgent Care Visit Reporton 0 04-27-2025 Urgent Care Visit Report [facility] [address], [address] [place] [address] OFFICE VISIT Date of Service: 04/27/25 MR#: [id number] Acct: [id number] Name: TYRONE AGUILAR Rep #: [id number] : 1950 Provider: KINGS Cruz Age/Sex: 74/M Location: [facility] Status: Signed Intake Vital Signs 04/25/22 14:54 04/27/25 08:14 Height 5 ft 11 in BP 136/78 H Blood Pressure Location Lt brachial Position Sitting Respiration 17 Pulse 144 H Pulse Source NIBP Temp 98.0 F Temp Source Oral Pulse Oximetry (%) 97 Oxygen Delivery Method room air Intake Visit Reasons: SWOLLEN RT ANKLE Chief Complaint: right ankle redness/pain Parts Remover Required: No Is patient in pain?: Yes Allergies No Known Allergies Allergy (Verified 04/27/25 08:16) Medications ???Medication ???Instructions ???Recorded ???Confirmed ???Type valsartan 40 mg tablet 40 mg PO BID 04/25/22 04/25/22 His tory ipratropium bromide 21 mcg (0.03 2 spray intranasal BID-TID PRN 03/2403/03/25 Rx %) nasal spray postnasal drainage #30 mL cephalexin 500 mg capsule 500 mg PO Q12H 10 days #20 caps 04/27/25 Rx Have you fallen in the past year?: Yes Nurse's Note: right medial ankle bump with redness/swelling/pain since last noc worsening. pt believes he may have been bitten by something while doing yard work yesterday but did not feel or see anything at that time. [facility] Medical History (Updated 04/27/25 @ 09:34 by KINGS Fagan) Impacted cerumen, right ear Acute bronchitis, unspecified Hypertension Family History Other Cancer HPI HPI Chief Complaint: right ankle redness/pain Details: TYRONE AGUILAR, is a 74 M who presents to the office today for complaint of right ankle redness and pain. Patient states he noticed it yesterday. He notes no specific injuries that could have caused the redness. He does state that his ankle was somewhat stiff this morning however this improved after getting up and walking around. He notes no fever, chills or sweats. No nausea, vomiting or diarrhea. Patient does have an elevated heart rate in the office today however does state he has a history of A-fib. No shortness of breath or difficulty breathing. No other associated symptoms or alleviating/aggravatin g factors. ROS Const Constitutional: No other (As above) Exam Const General: cooperative and healthy appearing Resp Effort Inspection: normal respiratory effort Auscultation: Bilateral: Clear to Auscultation Cardio Rate: regular rate Rhythm: regular rhythm Neuro General: patient alert Extrem Other: Erythema medial right ankle with some minor pain to palpation. No streaking or induration. Psych Appearance: grossly normal Mental Status: mental status grossly normal Coding Level of Care Code Off vis,est,level 3 Diagnoses Cellulitis of right ankle L03.115 A-fib I48.91 Assessment and Plan Assessment and Plan (1) Cellulitis of right ankle: Status: Acute (2) A-fib: Status: Acute Medications: New cephalexin 500 mg PO Q12H 10 days 20 caps 0RF Plan Keflex as prescribed today. Encouraged to get plenty of rest, drink lots of clear liquids, and use Tylenol or Ibuprofen (unless contraindicated) for fever and comfort. Patient also educated on other symptomatic management techniques. To be seen in 7-10 days if no improvement; sooner if worsening of symptoms. Patient advised needs to follow-up with his PCP and chef's assistant about his A-fib. Advised of potential red flags and when appropriate to report to the ED. Patient verbalized understanding and agreement with all the above. Clinical Quality Measures Falls Risk Screening/Assistive Devices Have you fallen in the past year?: Yes 04/27/25 0935 Date Mike Rajput Signature: Date (if applicable) CC: Normal [facility] Absolute lymphocyte countOrd ered By: Eriberto Her on 04-05-2025 Lymphocytes Auto (Unsp spec) [#/Vol] 1.57 10*3/uL 0.83-4.51 [facility] Absolute neutrophil countOrd ered By: Eriberto Her on 04-05-2025 Neutrophils (Bld) [#/Vol] 6.2 10*3/uL 2.0-7.7 [facility] Anion gap in Serum or Plasma Ordered By: Eriberto Arden on 04-05-2025 Anion gap [Moles/Vol] 10 mmol/L 5-15 [facility] Automated blood erythrocyte countOrdered By: Eriberto Arden on 04-05-2025 RBC (Bld) [#/Vol] 5.12 10*6/uL Normal 4.6-6.2 [facility] Comment on above: Performed By: #### L 500.4050, L501.9520, L100.0100 #### [facility] [address] [place], [place], [id number] Automated blood hematocrit ( percentage)Ordered By: Eriberto Her on 04-05-2025 Hematocrit (Bld) [Volume fraction] 45.7 % Normal 40-54 [facility] Comment on above: Performed By: #### L 500.4050, L501.9520, L100.0100 #### [facility] [address] [place], [address] Automated lymphocyte count a s percentage of total leukocytesOrdered By: Eriberto Kochok on 04-05-2025 Lymphocytes/100 WBC Auto (Unsp spec) 18.0 % Low 19-41 [facility] BUN/creatinine ratioOrdered By: [facility] 04-05-2025 Urea nitrogen/Creatinine [Mass ratio] 17.7 mg/mg 10-20 [facility] Basophil percentageOrdered B y: Eriberto Arden on 04-05-2025 Basophils/100 WBC (Bld) 0.7 % Normal 0-1 [facility] Comment on above: Performed By: #### L 500.4050, L501.9520, L100.0100 #### [facility] [address] [place], [address] Bilirubin, totalOrdered By: Eriberto Her on 04-05-2025 Bilirubin [Mass/Vol] 0.55 mg/dL 0.00-1.30 [facility] CBC W/Diff, Automatedon Absolute Lymph 1.57 X10 3/uL Normal 0.83-4.51 [facility] Comment on above: Performed By: #### L 500.4050, L501.9520, L100.0100 #### [facility] [address] [place], [address] Absolute Neut 6.2 X10 3/uL Normal 2.0-7.7 [facility] Comment on above: Performed By: #### L 500.4050, L501.9520, L100.0100 #### [facility] [address] [place], [address] IG% 0.500 Normal 0.0-0.9 [facility] Comment on above: Result Comment: IG% - Immature Granulocytes (promyelocytes, myelocytes and metamyelocytes) > 1% indicates that a LEFT SHIFT is Present. Performed By: #### L 500.4050, L501.9520, L100.0100 #### [facility] [address] [place], [address] Lymphocytes/100 WBC (Bld) 18.0 % Low 19-41 [facility] Comment on above: Performed By: #### L 500.4050, L501.9520, L100.0100 #### [facility] [address] [place], [address] Nucleated RBC (Bld) [#/Vol] 0 10*3/uL Normal 0-5 [facility] Comment on above: Performed By: #### L 500.4050, L501.9520, L100.0100 #### [facility] [address] [place], [address] RDW SD 43.0 fl Normal 35.1-43.9 [facility] Comment on above: Performed By: #### L 500.4050, [id number], L100.0100 #### [facility] [address] [place], [address] Carbon dioxide, total [Moles /volume] in Central venous bloodOrdered By: Eriberto Her on 04-05-2025 CO2 [Moles/Vol] 26.8 mmol/L 21.0-32.0 [facility] Chloride assayOrdered By: Denilson Her on 04-05-2025 Chloride [Moles/Vol] 102 mmol/L 98-108 [facility] Comprehensive Metabolic Prof ilon 04-05-2025 Albumin [Mass/Vol] 4.0 g/dL Normal 3.4-4.8 [facility] Comment on above: Order Comment: VITD Performed By: #### L 500.4050, L501.9520, L100.0100 #### [facility] [address] [place], [address] Albumin/Globulin [Mass ratio] 1.3 {ratio} Normal 0.9-2.4 [facility] Comment on above: Order Comment: VITD Performed By: #### L 500.4050, L501.9520, L100.0100 #### [facility] [address] [place], [address] ALK PHOS 63 U/L Normal 40-129 [facility] Comment on above: Order Comment: VITD Performed By: #### L 500.4050, L501.9520, L100.0100 #### [facility] [address] [place], [address] ALT [Catalytic activity/Vol] 24 U/L Normal <=46 [facility] Comment on above: Order Comment: VITD Performed By: #### L 500.4050, L501.9520, L100.0100 #### [facility] [address] [place], [address] AST [Catalytic activity/Vol] 24 U/L Normal <=37 [facility] Comment on above: Order Comment: VITD Performed By: #### L 500.4050, [id number], L100.0100 #### [facility] [address] [place], [address] Bilirubin [Mass/Vol] 0.55 mg/dL Normal 0.00-1.30 [facility] Comment on above: Order Comment: VITD Performed By: #### L 500.4050, [id number], L100.0100 #### [facility] [address] [place], [address] BUN/CRE 17.7 RATIO Normal 10-20 [facility] Comment on above: Order Comment: VITD Performed By: #### L 500.4050, [id number], L100.0100 #### [facility] [address] [place], [address] Calcium [Mass/Vol] 9.7 mg/dL Normal 7.6-11.0 [facility] Comment on above: Order Comment: VITD Performed By: #### L 500.4050, [id number], L100.0100 #### [facility] [address] [place], [address] Chloride [Moles/Vol] 102 mmol/L Normal 98-108 [facility] Comment on above: Order Comment: VITD Performed By: #### L 500.4050, [id number], L100.0100 #### [facility] [address] [place], [address] CO2 [Moles/Vol] 26.8 mmol/L Normal 21.0-32.0 [facility] Comment on above: Order Comment: VITD Performed By: #### L 500.4050, L501.9520, L100.0100 #### [facility] [address] [place], [address] Creatinine [Mass/Vol] 1.00 mg/dL Normal 0.70-1.20 [facility] Comment on above: Order Comment: VITD Performed By: #### L 500.4050, L501.9520, L100.0100 #### [facility] [address] [place], [address] GAP 10 Normal 5-15 [facility] Comment on above: Order Comment: VITD Performed By: #### L 500.4050, [id number], L100.0100 #### [facility] [address] [place], [address] GFR/1.73 sq M.predicted among non-blacks MDRD (S/P/Bld) [Vol rate/Area] 78 mL/min/{1.73_m2} Normal >60 [facility] Comment on above: Order Comment: VITD Result Comment: mL/m in/1.73m2 CKD-EPI Creatinine Equation (2020) Performed By: #### L 500.4050, L501.9520, L100.0100 #### [facility] [address] [place], [address] Globulin (S) [Mass/Vol] 3.0 g/dL Normal 2.2-4.2 [facility] Comment on above: Order Comment: VITD Performed By: #### L 500.4050, [id number], L100.0100 #### [facility] [address] [place], [address] Glucose [Mass/Vol] 95 mg/dL Normal 70-99 [facility] Comment on above: Order Comment: VITD Performed By: #### L 500.4050, [id number], L100.0100 #### [facility] [address] [place], [address] Potassium [Moles/Vol] 4.1 mmol/L Normal 3.3-5.1 [facility] Comment on above: Order Comment: VITD Performed By: #### L 500.4050, [id number], L100.0100 #### [facility] [address] [place], [address] Sodium [Moles/Vol] 140 mmol/L Normal 133-145 [facility] Comment on above: Order Comment: VITD Performed By: #### L 500.4050, L501.9520, L100.0100 #### [facility] [address] [place], [address] T PROT 7.1 g/dL Normal 5.9-8.4 [facility] Comment on above: Order Comment: VITD Performed By: #### L 500.4050, L501.9520, L100.0100 #### [facility] [address] [place], [address] Urea nitrogen [Mass/Vol] 18 mg/dL Normal 4-19 [facility] Comment on above: Order Comment: VITD Performed By: #### L 500.4050, L501.9520, L100.0100 #### [facility] [address] [place], [address] Eosinophil percentageOrdered By: Eriberto Her on 04-05-2025 Eosinophils/100 WBC (Bld) 1.8 % Normal 0-5 [facility] Comment on above: Performed By: #### L 500.4050, L501.9520, L100.0100 #### [facility] [address] [place], [address] Erythrocyte distribution wid th ratioOrdered By: Eriberto Her on 04-05-2025 Erythrocyte distribution width (RBC) [Ratio] 13.2 % Normal 11.6-14.6 [facility] Comment on above: Performed By: #### L 500.4050, L501.9520, L100.0100 #### [facility] [address] [place], [place], [address] Erythrocyte distribution wid th standard deviationOrdered By: Eriberto Her on 04-05-2025 Erythrocyte distribution width (RBC) [Ratio] 43.0 fl 35.1-43.9 [facility] Glomerular filtration rate ( GFR) estimation/1.73 sq m using serum, plasma, or whole bOrdered By: Eriberto Her on 04-05-2025 GFR/1.73 sq M.predicted among non-blacks MDRD (S/P/Bld) [Vol rate/Area] 78 mL/min/{1.73_m2} >60 [facility] Comment on above: mL/min/1.73m2 CKD-EP I Creatinine Equation (2020) Hemoglobin measurementOrdere d By: Eriberto Her on 04-05-2025 Hemoglobin (Bld) [Mass/Vol] 15.8 g/dL Normal 13.0-16.5 [facility] Comment on above: Performed By: #### L 500.4050, L501.9520, L100.0100 #### [facility] [address] [place], [place], [address] Immature granulocytes/100 WB C Auto (Bld)Ordered By: Eriberto Her on 04-05-2025 Immature granulocytes/100 WBC (Bld) 0.500 % 0.0-0.9 [facility] Comment on above: IG% - Immature Granu locytes (promyelocytes, myelocytes and metamyelocytes) > 1% indicates that a LEFT SHIFT is Present. Laboratory - Chemistry and C hemistry - challengeOrdered By: Eriberto Her on 04-05-2025 AST [Catalytic activity/Vol] 24 U/L <38 [facility] MCV (mean corpuscular volume ) determinationOrdered By: Eriberto Her on 04-05-2025 MCV (RBC) [Entitic vol] 89.3 fL Normal 80-94 [facility] Comment on above: Performed By: #### L 500.4050, L501.9520, L100.0100 #### [facility] [address] [place], [address] Mean corpuscular hemoglobin (MCH) determinationOrdered By: Eriberto Her on 04-05-2025 MCH (RBC) [Entitic mass] 30.9 pg Normal 27.0-32.0 [facility] Comment on above: Performed By: #### L 500.4050, L501.9520, L100.0100 #### [facility] [address] [place], [address] Mean corpuscular hemoglobin concentration (MCHC) determinationOrdered By: Eriberto Her on 04-05-2025 MCHC (RBC) [Mass/Vol] 34.6 g/dL Normal 32-36 [facility] Comment on above: Performed By: #### L 500.4050, L501.9520, L100.0100 #### [facility] [address] [place], [address] Mean platelet volume determi nationOrdered By: Eriberto Her on 04-05-2025 Platelet mean volume (Bld) [Entitic vol] 8.9 fL Normal 6.2-12.0 [facility] Comment on above: Performed By: #### L 500.4050, L501.9520, L100.0100 #### [facility] [address] [place], [address] Monocyte percentageOrdered B y: Eriberto Her on 04-05-2025 Monocytes/100 WBC (Bld) 8.3 % Normal 0-10 [facility] Comment on above: Performed By: #### L 500.4050, L501.9520, L100.0100 #### [facility] [address] [place], [address] Neutrophil percentageOrdered By: Eriberto Her on 04-05-2025 Neutrophils/100 WBC (Bld) 70.7 % High 47-70 [facility] Comment on above: Performed By: #### L 500.4050, L501.9520, L100.0100 #### [facility] [address] [place], [address] Nucleated red blood cell per centageOrdered By: Eriberto Her on 04-05-2025 Nucleated RBC/100 WBC (Bld) [Ratio] 0 % 0-5 [facility] Platelet countOrdered By: Denilson Her on 04-05-2025 Platelets (Bld) [#/Vol] 312 10*3/uL Normal 150-450 [facility] Comment on above: Performed By: #### L 500.4050, L501.9520, L100.0100 #### [facility] [address] [place], [place], [address] Potassium measurement (mass/ volume)Ordered By: Eriberto Her on 04-05-2025 Potassium (Unsp spec) [Mass/Vol] 4.1 mmol/L 3.3-5.1 [facility] Serum creatinine measurement (mass/volume)Ordered By: Eriberto Her on 04-05-2025 Creatinine [Mass/Vol] 1.00 mg/dL 0.70-1.20 [facility] Serum globulin measurementOr dered By: Eriberto Her 04-05-2025 Globulin (S) [Mass/Vol] 3.0 g/dL 2.2-4.2 [facility] Serum glucose measurement (m ass/volume)Ordered By: Eriberto Her 04-05-2025 Glucose [Mass/Vol] 95 mg/dL 70-99 [facility] Serum or plasma alanine painting otransferase (ALT) measurementOrdered By: Eriberto Her 04-05-2025 ALT [Catalytic activity/Vol] 24 U/L <47 [facility] Serum or plasma albumin rebecca urement (mass/volume)Ordered By: Eriberto Her 04-05-2025 Albumin [Mass/Vol] 4.0 g/dL 3.4-4.8 [facility] Serum or plasma albumin/glob ulin mass ratioOrdered By: Eriberto Her 04-05-2025 Albumin/Globulin [Mass ratio] 1.3 {ratio} 0.9-2.4 [facility] Serum or plasma alkaline cristela sphatase measurementOrdered By: Eriberto Kochok on 04-05-2025 ALP [Catalytic activity/Vol] 63 U/L 40-129 [facility] Serum or plasma calcium rebecca urement (mass/volume)Ordered By: Eriberto Kochok on 04-05-2025 Calcium [Mass/Vol] 9.7 mg/dL 7.6-11.0 [facility] Serum or plasma urea nitroge n measurement (mass/volume)Ordered By: Eriberto Her on 04-05-2025 Urea nitrogen [Mass/Vol] 18 mg/dL 4-19 [facility] Sodium levelOrdered By: Eriberto Kochok on 04-05-2025 Sodium [Moles/Vol] 140 mmol/L 133-145 [facility] TSH DL <= 0.005 mIU/L QnOrde red By: Eriberto Kochok on 04-05-2025 TSH Qn 3.090 uIU/mL 0.300-4.200 [facility] Thyroid Stim Hormone (TSH)on 04-05-2025 TSH 3.090 uIU/mL Normal 0.300-4.200 [facility] Comment on above: Performed By: #### L 500.4050, L501.9520, L100.0100 #### [facility] [address] [place], [address] Total proteinOrdered By: Eriberto Kochok on 04-05-2025 Protein [Mass/Vol] 7.1 g/dL 5.9-8.4 [facility] White blood cell (WBC) count Ordered By: Eriberto Her on 04-05-2025 WBC (Bld) [#/Vol] 8.7 10*3/uL Normal 4.4-11.0 [facility] Comment on above: Performed By: #### L 500.4050, L501.9520, L100.0100 #### [facility] [address] [place], [place], [address] Re-Evaluation - PT (1)on Re-Evaluation - PT (1) [facility] Physical Therapy [address] [place] [address] / REEVALUATION / MEDICARE RECERTIFICATION PHYSICAL THERAPY MR#: [id number] Acct: [id number] Name: TYRONE AGUILAR Rep #: [id number] : 1950 74 From: Eric Weber DPT Referring Dr.: Dr. Jae Rainey MD Status:REG RCR Insurance: [facility] [id number] SELF PAY INSURANCE Re-Evaluation Intro: Dr. 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 Please see the progress note below for an update on the physical therapy plan of care! Subjective Subjective: Pt. reports doing better. Pt. is still having some stiffness with his ROM. Pt. reports being able to walk longer distance. He still has some issues, but is tolerating walking and activities better. Objective Objective/Function: MMT: L hip: flex: 23.4#, abd 27.2# R hip: flex 51.1#, abd 51.3# ROM: L hip: good HS length, ER 60deg increase NW, IR 10deg increase NW, ext 5deg tightness, flexion 100deg increase NW. GAIT: Pt. still has decreased R step length secondary to lack of L hip extension. This did improve with stretching and hip mobs into extension STAIRS: Pt. is able to complete, but reports having put more effort during L stance phase, which was obviously more difficult with his trials. I would like to increase his L hip extension, ER, IR ROM allowing for increased tolerance to all functional mobility. Plan Plan Plan: I am asking more 5-6 more visits to progress into hip extension ROM and progress to gym related program to increase his L hip strength allowing for increased tolerance with all walking and functional mobility. Balance/Gait/Functiona l tests Balance/Special Test Scores Lower Extremity Functional Score: 34 Goals Goals Goal 1:: LTG: Pt. to be I with HEP. Goal Time Frame: 4-6 Weeks Goal Progress: Progressing Goal 2:: STG: Pt. to have increased L hip ROM by 10deg in all ranges. Goal Time Frame: 2 Weeks Goal Progress: Progressing Goal 3:: LTG: Pt. to have full L hip ROM without increase in symptoms. Goal Time Frame: 6-8 Weeks Goal Progress: Progressing Goal 4:: LTG: pt. to have normal gait pattern without increase in symptoms. Goal Time Frame: 6-8 Weeks Goal Progress: Progressing Goal 5:: LTG: Pt. to have 5/5 strength throughout LLE. Goal Time Frame: 6-8 Weeks Goal Progress: Progressing Anticipated Interventions Anticipated Interventions Patient/Client Instruction: Educate patient on: Condition, Plan of Care, Risk Factors and Benefits of Fitness Program For the Purpose of:: To facilitate caregiver knowledge, To improve self management, To prevent re- injury, To improve ability to perform tasks related to life management and To improve tolerance to ADL's Therapeutic Exercise to Include: Strength training, Power training, Endurance training, Gait and locomotor training, Passive ROM and Active ROM For the Purpose of:: To decrease pain, To decrease swelling/inflammation and To increase ROM Manual Therapy Techniques to Include: Mobilization For the Purpose of:: To decrease pain, To decrease swelling/inflammation and To increase ROM IF ES: Yes Other electric stimulation: Yes Cryotherapy (ice pack, ice massage): Yes For the Purpose of:: To decrease pain, To decrease swelling/inflammation and To increase ROM Re-Evaluation Ending Re-evaluation ending: Please do not hesitate to contact me at [phone] by phone or if you have questions or concerns regarding this new plan of care! Sincerely, Eric Weber DPT 03/30/25 0849 CC: Dr. Jae Rainey MD; Dr. Eriberto Her MD CLS Signed For Medicare only, by signing this I certify the plan of care. Physicians Signature Date Normal [facility] Inital Evaluation (1) - PTon 03-09-2025 Inital Evaluation (1) - PT [facility] Physical Therapy [facility] [address] [place] [address]. [address] [place] [address] / REHABILITATION SERVICES INITIAL EVALUATION MR#: [id number] Acct: [id number] Name: TYRONE AGUILAR Rep #: [id number] : 1950 74 From: Eric Weber DPT Referring Dr.: Dr. Jae Rainey MD Status: REG RCR Insurance: [facility] [id number] SELF PAY INSURANCE Patient's Visit Information Visit Information Visit Information: TYRONE AGUILAR is a 74 year old M referred to Physical Therapy by Dr. 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 Date of Evaluation: 03/09/25 Physical Therapist: Eric Weber DPT Visit Plan Frequency: 2x /Week Duration: 6 Weeks Plan: 1) slight progressive hip extension. Hip flexor stretching, prone prop. Progress to hip mobs 2) may use ice/stim to reduce symptoms 3) glute med/am strengthening 4) avoid hip flexor strengthening initially I gave him prone prop and standing hip flexor stretch for HEP today. Subjective Subjective: Pt. is here today for his initial evaluation with diagnosis DJD of L hip with dysplasia. Pt. reports pain starting all of a sudden 6 weeks ago. Most of his symptoms are groin. Pt. has increased pain: twisting, bending, putting shoes on, getting in/out of car. He will have quick stabbing like pain with those activities. No N/T noted. Pt. weakness noted. Pt. does a lot of walking and has had to refrain from that. Pt. is hopeful to get back to all walking without issues. Pt. is retired. He did have some injections into his buttock from his physician. Surgeon did offer injections, and surgery as needed. Pain L groin: Pain Intensity (Out of 10): 5 Pain Intensity Range: 3 and 10 Objective Objective: POSTURE: Pt. has slight increased lateral lean to R side. Pt. tends to keep L hip in slight flexion. PALPATION: pt. has increased tenderness at L anterior hip, hip flexor complex. No greater trochanter pain. No gluteal pain. NEURO: Pt. has normal sensation and normal DTR of BLEs. Pt. is able to rise on heels and toes without issues. ROM: L hip: PROM: flexion 90deg increase NW, abd 30deg increase NW, IR 0deg increase NW, ER 65deg mild increase NW. ext 4deg increase NW. All pain felt at anterior hip. MMT: RLE: 5/5 throughout. LLE: ankle/knee 5/5 throughout. hip: flex 3/5 very painful, abd 4/5 increase NW, ext 4/5 increase NW, IR/ER 3/5 very painful. GAIT: pt. ambulates with marked antalgic pattern. Difficulty with advancing LLE and limited hip extension. Special Tests L Hip Scour: Positive L Hip FADDIR - Labrum: Positive L Hip Impingement Provocation - Labrum: Positive Balance/Special Test Scores Lower Extremity Functional Score: 18 Goals Goal 1:: LTG: Pt. to be I with HEP. Goal Time Frame: 4-6 Weeks Goal 2:: STG: Pt. to have increased L hip ROM by 10deg in all ranges. Goal Time Frame: 2 Weeks Goal 3:: LTG: Pt. to have full L hip ROM without increase in symptoms. Goal Time Frame: 6-8 Weeks Goal 4:: LTG: pt. to have normal gait pattern without increase in symptoms. Goal Time Frame: 6-8 Weeks Goal 5:: LTG: Pt. to have 5/5 strength throughout LLE. Goal Time Frame: 6-8 Weeks Rehabilitation Potential Physical Therapy Diagnosis: Pt. 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 Pt. has marked hypomobility, weakness and increased pain. Pt. would benefit from PT to address the above limitations progressing back to all previous activities. Rehabilitation Potential: Good Anticipated Interventions Patient/Client Instruction: Educate patient on: Condition, Plan of Care, Risk Factors and Benefits of Fitness Program For the Purpose of:: To facilitate caregiver knowledge, To improve self management, To prevent re- injury, To improve ability to perform tasks related to life management and To improve tolerance to ADL's Therapeutic Exercise to Include: Strength training, Power training, Endurance training, Gait and locomotor training, Passive ROM and Active ROM For the Purpose of:: To decrease pain, To decrease swelling/inflammation and To increase ROM Manual Therapy Techniques to Include: Mobilization For the Purpose of:: To decrease pain, To decrease swelling/inflammation and To increase ROM IF ES: Yes Other electric stimulation: Yes Cryotherapy (ice pack, ice massage): Yes For the Purpose of:: To decrease pain, To decrease swelling/inflammation and To increase ROM Text: Thank you for the opportunity to evaluate your patient. For Medicare and Medicare HMO plans, please review the plan of care and approve it. It will need to be FAXED BACK to us at [phone] for Medicare purposes. For Medicare only, by signing this I certify the plan of care. Please let me know if there are questions or concerns regarding this plan of care. Physician Signature: (more content not included)... Normal [facility] Urgent Care Visit Reporton 0 03-03-2025 Urgent Care Visit Report [facility] [address] , [address] [place] [address] OFFICE VISIT Date of Service: 03/03/25 MR#: [id number] Acct: [id number] Name: TYRONE AGUILAR Rep #: [id number] : 1950 Provider: KINGS Cruz Age/Sex: 74/M Location: [facility] Status: Signed Intake Vital Signs 04/25/22 14:54 03/03/25 16:06 Height 5 ft 11 in BP 112/70 Blood Pressure Location Rt brachial Position Sitting Respiration 16 Pulse 102 H Pulse Source NIBP Temp 98.7 F Temp Source Oral Pulse Oximetry (%) 95 Oxygen Delivery Method room air Intake Visit Reasons: cough Chief Complaint: cough Parts Remover Required: No Is patient in pain?: No Allergies No Known Allergies Allergy (Verified 03/03/25 16:06) Medications ???Medication ???Instructions ???Recorded ???Confirmed ???Type valsartan 40 mg tablet 40 mg PO BID 04/25/22 04/25/22 His tory azithromycin 250 mg tablet See Rx Instructions PO .COMPLEX #6 03/03/25 03/03/25 Rx tabs ipratropium bromide 21 mcg (0.03 2 spray intranasal BID-TID PRN 03/2403/03/25 Rx %) nasal spray postnasal drainage #30 mL methylprednisolone 4 mg tablets in 4 mg PO PER PKG DIR 6 days #21 t abs 03/03/25 03/03/25 Rx a dose pack (Medrol (Ahmet)) Have you fallen in the past year?: No Nurse's Note: cough for 1 week without resolve. denies INMAN, BA, fever, congestion, ST. denies lung hx [facility] Medical History (Updated 09/16/24 @ 15:03 by Kamar KU, PA) Impacted cerumen, right ear Acute bronchitis, unspecified Hypertension Family History Other Cancer HPI HPI Chief Complaint: cough Details: TYRONE AGUILAR, is a 74 M who presents to the office today for complaint of cough and congestion as well as sore throat for the past week. Patient denies fever, chills, sweats. No nausea, vomiting, diarrhea. No loss of taste or smell. No other associated symptoms or alleviating/aggravatin g factors. ROS Const Constitutional: No other (As above) Exam Const General: cooperative and well developed HENMT Head: normal to inspection and atraumatic Ears: hearing grossly normal bilaterally Nose: nasal discharge clear Face and sinus: normal facial exam Mouth: oral mucosae normal Throat: abnormal tonsil bilaterally hypertrophy 1+ Resp Effort Inspection: normal respiratory effort and no audible wheezes Auscultation: Bilateral: Clear to Auscultation Cardio Palpation: normal PMI Rate: regular rate Rhythm: regular rhythm Neuro General: patient alert and CN's II-XI intact bilaterally Psych Appearance: grossly normal Mental Status: mental status grossly normal Coding Level of Care Code Off vis,est,level 3 Diagnoses Acute bronchitis, unspecified J20.9 Assessment and Plan Assessment and Plan (1) Acute bronchitis, unspecified: Status: Acute Medications: New azithromycin take 500 mg today (day 1), then 250 mg for 4 days (days 2-5) PO 6 tabs 0RF ipratropium bromide administer into each nostril 2 sprays intranasal BID-TID PRN 30 mL 0RF postnasal drainage methylprednisolone (Medrol (Ahmet)) 4 mg PO PER PKG DIR 6 days 21 tabs 0RF Plan Azithromycin and Atrovent as well as Medrol Dosepak as prescribed today. Encouraged to get plenty of rest, drink lots of clear liquids, and use Tylenol or Ibuprofen (unless contraindicated) for fever and comfort. Patient also educated on other symptomatic management techniques. To be seen in 7-10 days if no improvement; sooner if worsening of symptoms. Patient advised of potential red flags and when appropriate to report to the ED. Patient verbalized understanding and agreement with all the above. Clinical Quality Measures Falls Risk Screening/Assistive Devices Have you fallen in the past year?: No 03/03/25 1714 Date Mike Rajput Signature: Date (if applicable) CC: Normal [facility] Knee 4 or More Viewson 02-20 Knee 4 or More Views [facility] Imaging Services [address] [place] [id number] Knee 4 or More Views MR#: [id number] Acct: [id number] Name: TYRONE AGUILAR Rep #: [id number] : 1950 M 74 From: Remigio Roasles MD PCP: Dr. Eriberto Her MD Status: REG CLI Study: Knee 4 or More Views Date of Exam: 02/20/25 Exam# [id number] Ordering Dr: Eriberto Her MD EXAM: Knee four views left CLINICAL HISTORY: Pain COMPARISON: None available TECHNIQUE: Four views of the left knee; AP, lateral, tunnel and sunrise views FINDINGS: No fracture, dislocation or joint effusion. Appearance of mild joint space narrowing at the medial compartment. Otherwise the joint spaces appear within limits. No osteophyte formation, osseous lesion or periosteal reaction identified. Soft tissues appear within limits. RAD/Knee 4 or More Views IMPRESSION: Suggestion of mild medial compartment joint space narrowing. Study otherwise appears within limits. Reading Location: [id number] CC: Dr. Eriberto Her MD Molder Vacuum: Signed Normal [facility] L/S Spine Min 4 Viewson 01-29 L/S Spine Min 4 Views [facility] Services [address] [place] [address] L/S Spine Min 4 Views MR#: [id number] Acct: [id number] Name: TYRONE AGUILAR Rep #: [id number] : 1950 M 74 From: Tyrone Lowe MD PCP: Dr. Eriberto Her MD Status: REG CLI Study: L/S Spine Min 4 Views Date of Exam: 02/20/25 Exam# [id number] Ordering Dr: Eriberto Her MD EXAM: XR Lumbosacral Spine Flexion/Extension Only, 2 or 3 Views CLINICAL INDICATION: LOW BACK PAIN TECHNIQUE: Lateral flexion/extension views of the lumbar spine and sacrum. COMPARISON: No relevant prior studies available. FINDINGS: VERTEBRAE: Mild vertebral height loss of L3 and L4 vertebral bodies. Multilevel endplate degenerative changes and disc disease of L1-S1. Moderate facet arthropathy L4-S1. No acute fracture. Normal sagittal alignment. No instability. SACRUM/COCCYX: Unremarkable as visualized. No acute fracture. DISC SPACES: No acute findings. No significant narrowing. SOFT TISSUES: Unremarkable. RAD/L/S Spine Min 4 Views IMPRESSION: Degenerative changes as above. Reading Location: [facility] CC: Dr. Eriberto Her MD Molder Vacuum: Signed Normal [facility] CBC W/Diff, Automatedon 08-31 Absolute Lymph 2.21 X10 3/uL Normal 0.83-4.51 [facility] Comment on above: Performed By: #### L 500.4050, L506.1000, L100.0100, L501.9520 #### [facility] [address] [place], [place], [id number] Absolute Neut 7.6 X10 3/uL Normal 2.0-7.7 [facility] Comment on above: Performed By: #### L 500.4050, L506.1000, L100.0100, L501.9520 #### [facility] [address] [place], [address] Basophils/100 WBC (Bld) 0.5 % Normal 0-1 [facility] Comment on above: Performed By: #### L 500.4050, L506.1000, L100.0100, L501.9520 #### [facility] [address] [place], [address] Eosinophils/100 WBC (Bld) 2.5 % Normal 0-5 [facility] Comment on above: Performed By: #### L 500.4050, L506.1000, L100.0100, L501.9520 #### [facility] [address] [place], [address] Erythrocyte distribution width (RBC) [Ratio] 12.9 % Normal 11.6-14.6 [facility] Comment on above: Performed By: #### L 500.4050, L506.1000, L100.0100, L501.9520 #### [facility] [address] [place], [address] Hematocrit (Bld) [Volume fraction] 48.0 % Normal 40-54 [facility] Comment on above: Performed By: #### L 500.4050, L506.1000, L100.0100, L501.9520 #### [facility] [address] [place], [address] Hemoglobin (Bld) [Mass/Vol] 16.5 g/dL Normal 13.0-16.5 [facility] Comment on above: Performed By: #### L 500.4050, L506.1000, L100.0100, L501.9520 #### [facility] [address] [place], [address] IG% 1.000 High 0.0-0.9 [facility] Comment on above: Result Comment: IG% - Immature Granulocytes (promyelocytes, myelocytes and metamyelocytes) > 1% indicates that a LEFT SHIFT is Present. Performed By: #### L 500.4050, L506.1000, L100.0100, L501.9520 #### [facility] [address] [place], [address] Lymphocytes/100 WBC (Bld) 20.3 % Normal 19-41 [facility] Comment on above: Performed By: #### L 500.4050, L506.1000, L100.0100, L501.9520 #### [facility] [address] [place], [address] MCH (RBC) [Entitic mass] 31.1 pg Normal 27.0-32.0 [facility] Comment on above: Performed By: #### L 500.4050, L506.1000, L100.0100, L501.9520 #### [facility] [address] [place], [address] MCHC (RBC) [Mass/Vol] 34.4 g/dL Normal 32-36 [facility] Comment on above: Performed By: #### L 500.4050, L506.1000, L100.0100, L501.9520 #### [facility] [address] [place], [address] MCV (RBC) [Entitic vol] 90.4 fL Normal 80-94 [facility] Comment on above: Performed By: #### L 500.4050, L506.1000, L100.0100, L501.9520 #### [facility] [address] [place], [address] Monocytes/100 WBC (Bld) 6.4 % Normal 0-10 [facility] Comment on above: Performed By: #### L 500.4050, L506.1000, L100.0100, L501.9520 #### [facility] [address] [place], [address] Neutrophils/100 WBC (Bld) 69.3 % Normal 47-70 [facility] Comment on above: Performed By: #### L 500.4050, L506.1000, L100.0100, L501.9520 #### [facility] [address] [place], [address] Nucleated RBC (Bld) [#/Vol] 0 10*3/uL Normal 0-5 [facility] Comment on above: Performed By: #### L 500.4050, L506.1000, L100.0100, L501.9520 #### [facility] [address] [place], [address] Platelet mean volume (Bld) [Entitic vol] 8.8 fL Normal 6.2-12.0 [facility] Comment on above: Performed By: #### L 500.4050, L506.1000, L100.0100, L501.9520 #### [facility] [address] [place], [address] Platelets (Bld) [#/Vol] 405 10*3/uL Normal 150-450 [facility] Comment on above: Performed By: #### L 500.4050, L506.1000, L100.0100, L501.9520 #### [facility] [address] [place], [address] RBC (Bld) [#/Vol] 5.31 10*6/uL Normal 4.6-6.2 [facility] Comment on above: Performed By: #### L 500.4050, L506.1000, L100.0100, L501.9520 #### [facility] [address] [place], [address] RDW SD 42.7 fl Normal 35.1-43.9 [facility] Comment on above: Performed By: #### L 500.4050, L506.1000, L100.0100, L501.9520 #### [facility] [address] [place], [address] WBC (Bld) [#/Vol] 10.9 10*3/uL Normal 4.4-11.0 [facility] Comment on above: Performed By: #### L 500.4050, L506.1000, L100.0100, L501.9520 #### [facility] [address] [place], [address] Comprehensive Metabolic Prof ilon 09-23-2024 Albumin [Mass/Vol] 3.7 g/dL Normal 3.2-5.0 [facility] Comment on above: Performed By: #### L 500.4050, L506.1000, L100.0100, L501.9520 ####[facility] [address] [place], [address] Albumin/Globulin [Mass ratio] 0.9 {ratio} Normal 0.9-2.4 [facility] Comment on above: Performed By: #### L 500.4050, L506.1000, L100.0100, L501.9520 ####[facility] [address] [place], [address] ALK P 63 U/L Normal 45-117 [facility] Comment on above: Performed By: #### L 500.4050, L506.1000, L100.0100, L501.9520 ####[facility] [address] [place], [address] ALT [Catalytic activity/Vol] 43 U/L Normal 16-61 [facility] Comment on above: Performed By: #### L 500.4050, L506.1000, L100.0100, L501.9520 ####[facility] [address] [place], [address] AST [Catalytic activity/Vol] 19 U/L Normal 15-37 [facility] Comment on above: Performed By: #### L 500.4050, L506.1000, L100.0100, L501.9520 ####[facility] [address] [place], [address] Bilirubin [Mass/Vol] 0.60 mg/dL Normal 0.20-1.00 [facility] Comment on above: Result Comment: For patients on eltrombopag therapy, use of Dimension [place] TBIL is not recommended. Performed By: #### L 500.4050, L506.1000, L100.0100, L501.9520 ####[facility] [address] [place], [address] BUN/CRE 25.2 RATIO High 10-20 [facility] Comment on above: Performed By: #### L 500.4050, L506.1000, L100.0100, L501.9520 ####[facility] [facility] [address] [place], [address] CA,Total 9.5 mg/dL Normal 8.5-10.1 [facility] Comment on above: Performed By: #### L 500.4050, L506.1000, L100.0100, L501.9520 ####[facility] [address] [place], [address] Chloride [Moles/Vol] 103 mmol/L Normal 98-107 [facility] Comment on above: Performed By: #### L 500.4050, L506.1000, L100.0100, L501.9520 ####[facility] [address] [place], [address] CO2 [Moles/Vol] 30.0 mmol/L Normal 21.0-32.0 [facility] Comment on above: Performed By: #### L 500.4050, L506.1000, L100.0100, L501.9520 ####[facility] [address] [place], [address] Creatinine [Mass/Vol] 1.07 mg/dL Normal 0.70-1.30 [facility] Comment on above: Result Comment: The validity of the calculated GFR GFRAA in patients over 70 years has not been determined. Clinical correlation is essential. Performed By: #### L 500.4050, L506.1000, L100.0100, L501.9520 ####[facility] [address] [place], [address] EST GFR - AA 87 mL/min Normal >60 [facility] Comment on above: Result Comment: Afri can Citizen Of [place] GFR Calc Performed By: #### L 500.4050, L506.1000, L100.0100, L501.9520 ####[facility] [address] [place], [address] GAP 6 Normal 5-15 [facility] Comment on above: Performed By: #### L 500.4050, L506.1000, L100.0100, L501.9520 ####[facility] [address] [place], [address] GFR/1.73 sq M.predicted among non-blacks MDRD (S/P/Bld) [Vol rate/Area] 72 mL/min/{1.73_m2} Normal >60 [facility] Comment on above: Result Comment: Non- GFR Calc Performed By: #### L 500.4050, L506.1000, L100.0100, L501.9520 ####[facility] [address] [place], [address] Globulin (S) [Mass/Vol] 3.9 g/dL Normal 2.2-4.2 [facility] Comment on above: Performed By: #### L 500.4050, L506.1000, L100.0100, L501.9520 ####[facility] [address] [place], [address] Glucose [Mass/Vol] 94 mg/dL Normal 74-106 [facility] Comment on above: Performed By: #### L 500.4050, L506.1000, L100.0100, L501.9520 ####[facility] [address] [place], [address] Potassium [Moles/Vol] 3.8 mmol/L Normal 3.5-5.1 [facility] Comment on above: Performed By: #### L 500.4050, L506.1000, L100.0100, L501.9520 ####[facility] [address] [place], [address] Sodium [Moles/Vol] 139 mmol/L Normal 136-145 [facility] Comment on above: Performed By: #### L 500.4050, L506.1000, L100.0100, L501.9520 ####[facility] [address] [place], [address] T PROT 7.6 g/dL Normal 6.4-8.2 [facility] Comment on above: Performed By: #### L 500.4050, L506.1000, L100.0100, L501.9520 ####[facility] [address] [place], [address] Urea nitrogen [Mass/Vol] 27 mg/dL High 7-18 [facility] Comment on above: Performed By: #### L 500.4050, L506.1000, L100.0100, L501.9520 ####[facility] [address] [place], [address] Thyroid Stim Hormone (TSH)on 09-23-2024 TSH 1.910 uIU/mL Normal 0.358-3.740 [facility] Comment on above: Performed By: #### L 500.4050, L506.1000, L100.0100, L501.9520 ####[facility] [address] [place], [address] Vitamin D,25 Hydroxyon 09-23 Vitamin D 25-OH 21.4 ng/mL Normal [facility] Comment on above: Result Comment: [facility] min D 25(OH) Status Range Deficiency <20 ng/mL (50nmol/L) Insufficiency 20 - 30 ng/mL (50 - 75 nmol/L) Sufficiency 30 - 100 ng/mL (75 - 250 nmol/L) Toxicity >100 ng/mL (>250 nmol/L) Performed By: #### L 500.4050, L506.1000, L100.0100, L501.9520 #### [facility] [address] [place], [address] Urgent Care Visit Reporton 1 Urgent Care Visit Report [facility] [address], [address] [place], [place] [address] OFFICE VISIT Date of Service: 09/16/24 MR#: [id number] Acct: [id number] Name: TYRONE AGUILAR Rep #: [id number] : 1950 Provider: KINGS Carey Age/Sex: 74/M Location: [facility] Status: Signed Intake Vital Signs 04/25/22 14:54 09/16/24 12:57 Height 5 ft 11 in BP 112/80 Blood Pressure Location Lt brachial Position Sitting Respiration 14 Pulse 105 H Pulse Source Monitor Temp 98.7 F Temp Source Oral Pulse Oximetry (%) 96 Oxygen Delivery Method room air Intake Visit Reasons: Cough Allergies No Known Allergies Allergy (Unverified 09/16/24 12:57) Have you fallen in the past year?: No [facility] Medical History (Updated 09/16/24 @ 15:03 by Kamar KU, PA) Impacted cerumen, right ear Acute bronchitis, unspecified Hypertension Family History Other Cancer HPI HPI Details: TYRONE AGUILAR, is a 74 M who presents to the office today for initial evaluation 3 to 4-day history of moist productive clear whitish cough which is worse when supine. No complaints of fever, chills, sweats, lightheadedness/dizzin ess, sinus pressure, postnasal drip. No complaints of chest pain or shortness of breath or dyspnea on exertion. No nbaw-qpi-vihstrd products taken to assist. No other associated symptoms and no other alleviating/aggravatin g factors. ROS Const Constitutional: No other (As above) Exam Const General: cooperative, healthy appearing and no acute distress Orientation: alert and awake [facility] Head: normal to inspection Ears: hearing grossly normal bilaterally, external ears normal, TM's normal bilaterally (After right ear cerumen impaction removal; see procedure) and EAC's normal Nose: external nose normal, nares normal, septum normal and no nasal discharge Face and sinus: normal facial exam, sinuses nontender and face symmetric Mouth: oral mucosae normal, lip normal, tongue normal, oropharynx normal and moist mucous membranes Throat: posterior oropharynx normal, tonsils normal, uvula midline and no postnasal drainage Eyes General: appearance normal, both eyes and all related structures Neck Neck: normal visual inspection, full ROM, no lymphadenopathy, no meningeal signs and supple Neck mass: No Thyroid: thyroid normal Lymphatic: no lymphadenopathy noted Chest Chest palpation inspection: normal inspection of the chest Resp Effort Inspection: normal respiratory effort, able to speak in complete sentences and no cough (No unsolicited cough during today's exam) Auscultation: Bilateral: Clear to Auscultation Cardio Palpation: normal PMI Rate: regular rate Rhythm: regular rhythm Heart Sounds: S1 normal, S2 normal, no gallops, no murmurs and no rubs Pulses: radial pulses present GI Inspection: normal to inspection Palpation: soft and no hepatosplenomegaly Skin General: no rashes or lesions noted Neuro General: patient alert, patient awake and patient oriented x3 Cognition: normal cognition Speech: speech normal Psych Appearance: grossly normal Mental Status: mental status grossly normal Mood: congruent mood Affect: normal affect Speech and Movement: speech and movement normal Attitude: cooperative Office Procedures Cerumen Removal Procedure BMS Cerumen Removal Procedure Procedure performed by: Kamar Zapata Method of removal: irrigation From which ear canal was the cerumen removed: right Amount of Cerumen: large Patient tolerated procedure: well Complications: none Coding Level of Care Code Attention Tab Diagnoses Acute bronchitis, unspecified J20.9 Impacted cerumen, right ear H61.21 Comment [address], [address] Assessment and Plan Assessment and Plan (1) Acute bronchitis, unspecified: Status: Acute (2) Impacted cerumen, right ear: Status: Acute Plan: See procedure above. Medrol Dosepak and benzonatate as prescribed today. Supportive measures as instructed today. Follow-up with PCP in 5 to 7 days should symptoms not improve, sooner should symptoms worsen or any other concerns develop. Patient states acknowledging understanding all the above. This note was generated with Ampulseation software. It may contain incorrect words, spelling, and punctuation that were not noted in checking the note before signing. Medications: New methylprednisolone (Medrol (Ahmet)) PO PER PKG DIR 21 tabs 0RF benzonatate 200 mg PO TID PRN 20 caps 0RF cough Clinical Quality Measures Falls Risk Screening/Assistive Devices Have you fallen in the past year?: No 09/16/24 1505 Date Kamar KU Cosigner Signature: Date (more content not included)... Normal [facility] Absolute lymphocyte countOrd ered By: Eriberto Her on 03-16-2024 Lymphocytes Auto (Unsp spec) [#/Vol] 1.51 10*3/uL 0.83-4.51 [facility] Automated lymphocyte count a s percentage of total leukocytesOrdered By: Eriberto Her on 03-16-2024 Lymphocytes/100 WBC Auto (Unsp spec) 22.2 % 19-41 [facility] Basophil percentageOrdered B y: Eriberto Her on 03-16-2024 Basophils/100 WBC (Bld) 0.7 % 0-1 [facility] Bilirubin [Mass/Vol] 0.60 mg/dL 0.20-1.00 [facility] Comment on above: For patients on eltr ombopag therapy, use of Dimension [place] TBIL is not recommended. Chloride [Moles/Vol] 106 mmol/L 98-107 [facility] Eosinophils/100 WBC (Bld) 2.8 % 0-5 [facility] Glucose [Mass/Vol] 90 mg/dL 74-106 [facility] Hemoglobin (Bld) [Mass/Vol] 14.8 g/dL 13.0-16.5 [facility] Monocytes/100 WBC (Bld) 7.8 % 0-10 [facility] Neutrophils (Bld) [#/Vol] 4.5 10*3/uL 2.0-7.7 [facility] Neutrophils/100 WBC (Bld) 66.2 % 47-70 [facility] Potassium [Moles/Vol] 4.2 mmol/L 3.5-5.1 [facility] Protein [Mass/Vol] 7.4 g/dL 6.4-8.2 [facility] Sodium [Moles/Vol] 140 mmol/L 136-145 [facility] WBC (Bld) [#/Vol] 6.8 10*3/uL 4.4-11.0 [facility] Determination of erythrocyte mean corpuscular volume (MCV)Ordered By: Eriberto Her on 03-16-2024 MCV (RBC) [Entitic vol] 91.7 fL 80-94 [facility] Erythrocyte distribution wid th ratioOrdered By[facility] Erythrocyte distribution width (RBC) [Ratio] 13.1 % 11.6-14.6 [facility] Erythrocyte distribution wid th standard deviationOrdered By: Eriberto Her 03-16-2024 Erythrocyte distribution width (RBC) [Entitic vol] 44.0 fL 35.1-43.9 [facility] Hematocrit Auto (Bld) [Volum e fraction]Ordered By: Eriberto Arden 03-16-2024 Hematocrit (Bld) [Volume fraction] 44.2 % 40-54 [facility] Immature granulocytes/100 WB C Auto (Bld)Ordered By: Eriberto Her on 03-16-2024 Immature granulocytes/100 WBC (Bld) 0.300 % 0.0-0.9 [facility] Comment on above: IG% - Immature Granu locytes (promyelocytes, myelocytes and metamyelocytes) > 1% indicates that a LEFT SHIFT is Present. Laboratory - Chemistry and C hemistry - challengeOrdered By: Eriberto Her on 03-16-2024 Albumin/Globulin [Mass ratio] 1.1 {ratio} 0.9-2.4 [facility] ALP [Catalytic activity/Vol] 62 U/L 45-117 [facility] ALT [Catalytic activity/Vol] 28 U/L 16-61 [facility] CO2 [Moles/Vol] 30.0 mmol/L 21.0-32.0 [facility] Globulin (S) [Mass/Vol] 3.6 g/dL 2.2-4.2 [facility] Urea nitrogen/Creatinine [Mass ratio] 19.8 mg/mg 10-20 [facility] Laboratory - Hematology and Cell countsOrdered By: Eriberto Her on 03-16-2024 MCH (RBC) [Entitic mass] 30.7 pg 27.0-32.0 [facility] MCHC (RBC) [Mass/Vol] 33.5 g/dL 32-36 [facility] Nucleated RBC/100 WBC (Bld) [Ratio] 0 % 0-5 [facility] Platelet mean volume (Bld) [Entitic vol] 9.1 fL 6.2-12.0 [facility] Platelets (Bld) [#/Vol] 263 10*3/uL 150-450 [facility] No Panel InformationOrdered By: Eriberto Her on 03-16-2024 Estimated GFR (MDRD) Amer 93 mL/min >60 [facility] Comment on above: GFR Calc Estimated GFR (MDRD) Non-Af Amer 77 mL/min >60 [facility] Comment on above: Non- GFR Calc Vitamin D 25-Hydroxy 27.8 ng/mL [facility] Comment on above: Vitamin D 25(OH) Sta tus Range Deficiency <20 ng/mL (50nmol/L) Insufficiency 20 - 30 ng/mL (50 - 75 nmol/L) Sufficiency 30 - 100 ng/mL (75 - 250 nmol/L) Toxicity >100 ng/mL (>250 nmol/L) RBC Auto (Bld) [#/Vol]Ordere d By: Eriberto Her on 03-16-2024 RBC (Bld) [#/Vol] 4.82 10*6/uL 4.6-6.2 [facility] Serum or plasma calcium rebecca urement (mass/volume)Ordered By: Eriberto Her on 03-16-2024 Calcium [Mass/Vol] 9.1 mg/dL 8.5-10.1 [facility] Serum or plasma creatinine m easurement (mass/volume)Ordered By: Eriberto Her on 03-16-2024 Creatinine [Mass/Vol] 1.01 mg/dL 0.70-1.30 [facility] Comment on above: The validity of the calculated GFR & GFRAA in patients over 70 years has not been determined. Clinical correlation is essential. Serum or plasma thyroid stim ulating hormone (TSH) measurement (units/volume)Ordered By: Eriberto Her on 03-16-2024 TSH Qn 1.81 uIU/mL 0.358-3.74 [facility] Serum or plasma urea nitroge n measurement (mass/volume)Ordered By: Eriberto Her on 03-16-2024 Urea nitrogen [Mass/Vol] 20 mg/dL 7-18 [facility] Thin prep Papanicolaou smear with manual screeningOrdered By: Eriberto Her on 03-16-2024 Thin prep Papanicolaou smear with manual screening 3.8 g/dL 3.2-5.0 [facility] Thin prep Papanicolaou smear with manual screening 21 U/L 15-37 [facility] Thin prep Papanicolaou smear with manual screening 4 5-15 [facility] CNOVon 01-01-2024 CNOV Office Visit (AGATHAT ) TYRONE AGUILAR ([id number]) 1950 M Date Time Provider Department 01/01/24 9:30 AM NATHALY RODRIGEZ During your visit today, we recorded the following information about you: Pulse Blood pressure Weight Height 69/minute 109/71 103 kg 1.829 m Nathaly Rodrigez APRN.FANNY 01/01/2024 9:17 AM Signed - Call [facility] at [phone] to order your CPAP supplies - Any appointments can be scheduled through the central scheduling system for the [facility] [place] at [phone]. - To reach my offices, please call [phone] opt 5. - May use Message My Doc through My Chart for questions. - [facility] website: [email or web address] g/sleep PAP Supply Guidelines Below are the guidelines for reordering your supplies. You will be responsible for your deductible, co-payments, and out of pocket expenses. Item Medicare AND Commercial Insurance Nasal Mask (no headgear) 1 every 3 months Nasal Mask Cushion 1 every month Full Face Mask (no headgear) 1 every 3 months Full Face Mask Cushion 1 every month Nasal Pillows 2 every month Headgear 1 every 6 months Chin Strap 1 every 6 months Tubing 1 every 3 months Filters: Reusable 1 every 6 months Filters: Disposable 2 every month Humidifier Chamber(disposable) 1 every 6 months Equipment Cleaning Keeping your equipment clean is very important to assuring your success with positive pressure therapy. Following the guidelines below can help you avoid preventable respiratory infections, as well as ensure the proper operation and the usable life of the equipment. Daily: Wash mask or nasal pillows with mild dish soap. Rinse well and dry. Wash humidifier water chamber with mild dish soap. Rinse well and refill with water recommended by the level designer. Weekly: Wash hose with mild dish soap. Rinse well and hang to air dry or connect the hose to your CPAP/BIPAP and allow air to blow through the hose until dry. Soak the humidifier water chamber in 1 part white vinegar and 3 parts water for 30 minutes. Rinse well. Avoid: Alcohol, baby wipes, antibacterial soaps, glycerin, oil-based soap, peroxide, bleach, aromatic soaps and lotions. Vinay Bocanegra MA 01/01/2024 9:37 AM Signed Vinay Bocanegra MA 01/01/2024 9:37 AM Signed Nathaly Rodrigez APRN.CNP 01/01/2024 9:37 AM Signed [facility] Follow-up/Established patient visit Date of last visit: 01/28/2023 IMPRESSION: Amalia (obstructive sleep apnea) (primary encounter diagnosis) Plmd (periodic limb movement disorder) Snoring Fatigue, unspecified type Excessive daytime sleepiness Witnessed episode of apnea Nocturia Clinical Global Impression of Change ( CGI-C) Compared to the patient's condition at baseline, how much has the patient changed? Much improved - Doing well with PAP therapy. - Denies mask or pressure intolerance. - Compliant and benefiting from treatment. PLAN: - Continue Auto CPAP at 8-15 cmH2O. - Consider trying a hybrid style full face mask with tubing on top. - Remember to clean your mask and equipment regularly, as directed. - You should be eligible for new supplies approximately every 3-6 months, depending on your insurance coverage. Contact your Durable Medical Equipment (DME) company for new supplies as needed. - Follow up in 12 months or sooner if needed. Padmini Parra APRN.OIL TRANSPORT DRIVER HPI: SLEEP APNEA Sleep apnea type : AMALIA, Most Recent Apnea-Hypopnea Index (AHI): 101 Treatment : PAP therapy DME: [facility] PAP History: Current PAP settin-15 cm H2O. Difficulties with AutoPAP: None Reviewed objective PAP compliance data: 5 Average use: 5 hours 36 minutes 90/95th percentile pressure: 12.3 Leaks 5.2, residual AHI 6.8 Mask issues: None Uses chin strap: No Uses ramp function: Yes Uses humidity: Yes There is a perceived benefit by the patient SLEEP-WAKE SCHEDULE Bedtime: 10 PM Latency: 45-60 minutes Nocturnal wakings: usually none Wake time: 6 AM, without an alarm. On weekends, he maintains the same sleep schedule. Average total sleep time (in a 24 hour period): 7.5-8 hours. He does take naps. Frequency: on occasion in the afternoon, Duration: a short time. Sleep behaviors: None SLEEP FUNCTIONAL OUTCOME MEASURES: reviewed and uploaded. PAST MEDICAL HISTORY Diagnosis Date AMALIA (obstructive sleep apnea) PSH, SH: Reviewed REVIEW OF SYSTEMS SLEEP RELATED ROS GENERAL: See HPI RESPIRATORY: negative dyspnea CARDIOVASCULAR: negative chest pain : negative nocturia MUSCULOSKELETAL: positive generalized body pain SKIN: negative mask irritation PSYCH: negative depression and suicidal thoughts ENDOCRINE: negative thyroid problems NEURO: negative cognitive changes All other systems reviewed and are negative. ALLERGIES No Known Aller (more content not included)... Normal [facility] CNPNon 01-01-2024 CNPN Telephone (NESLST) SHADYTYRONE CM ([id number]) 1950 M Date Time Provider Department 01/01/24 NATHALY RODRIGEZ During your visit today, we recorded the following information about you: Vinay Bocanegra MA 01/01/2024 10:18 AM Signed Faxed to [facility] [place] Prescription for Cpap. Received fax confirmation. Placed in file. Vinay Bocanegra MA Allergies As of Date: 01/01/2024 (No Known Allergies) Date Reviewed: 01/01/2024 Reviewed by: Nathaly Rodrigez APRN.OIL TRANSPORT DRIVER - Fully Assessed Reason for Visit: [facility] [Other] Cmt: Faxed prescription Prescriptions as of 01/01/2024 - CPAP/BIPAP/OTHER Supplies : Settings 8 - 15 cm H2O, suitable mask per pt preference, chin strap, head gear, humidity, tubing, lifetime supplies. 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 - CPAP/BIPAP/OTHER Type .CPAPSettings into a note to see current settings/supplies/DME information. - cholecalciferol, Vitamin D3, (VITAMIN D3) 1,250 mcg (50,000 unit) cap capsule Take 1 capsule by mouth one time a week. - CPAP Pressure change to Settings 8 - 15 cm H2O, EPR to 3 at fulltime, Response to SOFT, suitable mask per pt preference, chin strap, head gear, humidity, heated tubing (JUSTUS), lifetime supplies. 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 - Valsartan-hydroCHLOROt hiazide 160-12.5 mg per tablet - citalopram hydrobromide (CELEXA) 10 mg tablet Problem List As Of Date 01/01/2024 Noted Resolved AMALIA (obstructive sleep apnea) [G47.33] 08/23/2021 Encounter Status:Closed by VINAY [facility]OCANEGRA [facility]01[facility]NEURST[facility] TYRONE AGUILAR ([id number]) 1950 M Date Time Provider Department 12/24/23 NATHALY RODRIGEZ During your visit today, we recorded the following information about you: Vinay Bocanegra MA 12/24/2023 9:54 AM Signed Spoke to [facility] patient is non compliant has not used since 2021. Vinay Bocanegra MA Allergies As of Date: 12/24/2023 (No Known Allergies) Date Reviewed: 03/28/2022 Reviewed by: Nathaly Rodrigez APRN.OIL TRANSPORT DRIVER - Fully Assessed Reason for Visit: PAP Therapy Follow Up [1285] Cmt: Prescriptions as of 12/24/2023 - CPAP/BIPAP/OTHER Type .CPAPSettings into a note to see current settings/supplies/DME information. - cholecalciferol, Vitamin D3, (VITAMIN D3) 1,250 mcg (50,000 unit) cap capsule Take 1 capsule by mouth one time a week. - CPAP Pressure change to Settings 8 - 15 cm H2O, EPR to 3 at fulltime, Response to SOFT, suitable mask per pt preference, chin strap, head gear, humidity, heated tubing (JUSTUS), lifetime supplies. 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 - Valsartan-hydroCHLOROt hiazide 160-12.5 mg per tablet - citalopram hydrobromide (CELEXA) 10 mg tablet Problem List As Of Date 12/24/2023 Noted Resolved AMALIA (obstructive sleep apnea) [G47.33] 08/23/2021 Encounter Status:Closed by VINAY BOCANEGRA on 12/24/23 [facility] TYR[facility] AGUILAR ([id number]) 1950 M Date Time Provider Department 12/24/23 NATHALY RODRIGEZ During your visit today, we recorded the following information about you: Vinay Bocanegra MA 12/24/2023 12:26 PM Signed Allergies As of Date: 12/24/2023 (No Known Allergies) Date Reviewed: 03/28/2022 Reviewed by: Nathaly Rodrigez APRN.OIL TRANSPORT DRIVER - Fully Assessed Prescriptions as of 12/24/2023 - CPAP/BIPAP/OTHER Type .CPAPSettings into a note to see current settings/supplies/DME information. - cholecalciferol, Vitamin D3, (VITAMIN D3) 1,250 mcg (50,000 unit) cap capsule Take 1 capsule by mouth one time a week. - CPAP Pressure change to Settings 8 - 15 cm H2O, EPR to 3 at fulltime, Response to SOFT, suitable mask per pt preference, chin strap, head gear, humidity, heated tubing (JUSTUS), lifetime supplies. 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 - Valsartan-hydroCHLOROt hiazide 160-12.5 mg per tablet - citalopram hydrobromide (CELEXA) 10 mg tablet Problem List As Of Date 12/24/2023 Noted Resolved AMALIA (obstructive sleep apnea) [G47.33] 08/23/2021 Encounter Status:Closed by VINAY BOCANEGRA on 12/24/23 Normal [facility] Absolute lymphocyte countOrd ered By: Dr. Her on 02-26-2023 Lymphocytes Auto (Unsp spec) [#/Vol] 1.63 10*3/uL 0.83-4.51 [facility] Basophil percentageOrdered B y: Dr. Her on 02-26-2023 Basophils/100 WBC (Bld) 0.9 % 0-1 [facility] Bilirubin [Mass/Vol] 0.40 mg/dL 0.20-1.00 [facility] Comment on above: For patients on eltr ombopag therapy, use of Dimension [place] TBIL is not recommended. Chloride [Moles/Vol] 104 mmol/L 98-107 [facility] Eosinophils/100 WBC (Bld) 3.1 % 0-5 [facility] Glucose [Mass/Vol] 104 mg/dL 74-106 [facility] Comment on above: Fasting Glucose resu lt from 100 to 125 mg/dL suggests IMPAIRED HOMEOSTASIS per A.D.A. criteria. Neutrophils (Bld) [#/Vol] 5.1 10*3/uL 2.0-7.7 [facility] Neutrophils/100 WBC (Bld) 66.6 % 47-70 [facility] Potassium [Moles/Vol] 3.4 mmol/L 3.5-5.1 [facility] Comment on above: Slight Hemolysis, Re sult may be falsely increased. Protein [Mass/Vol] 7.0 g/dL 6.4-8.2 [facility] Sodium [Moles/Vol] 140 mmol/L 136-145 [facility] Testosterone [Mass/Vol] 184.84 ng/dL [facility] Comment on above: CENTRAL 90% REFERENC E RANGES MALE AGE <50 197.44 - 669.58 ng/dL MALE AGE > or = 50 187.72 - 684.19 ng/dL FEMALE AGE <50 8.38 - 35.01 ng/dL FEMALE AGE > or = 50 <7.00 - 35.92 ng/dL Effective as of 06/25/21 WBC (Bld) [#/Vol] 7.6 10*3/uL 4.4-11.0 [facility] Blood erythrocytes count (nu mber/volume)Ordered By: Dr. Her on 02-26-2023 RBC (Bld) [#/Vol] 4.96 10*6/uL 4.6-6.2 [facility] Blood hemoglobin measurement (mass/volume)Ordered By: Dr. Her on 02-26-2023 Hemoglobin (Bld) [Mass/Vol] 15.3 g/dL 13.0-16.5 [facility] Blood lymphocytes/100 leukoc ytesOrdered By: Dr. Her on 02-26-2023 Lymphocytes/100 WBC (Bld) 21.4 % 19-41 [facility] Blood monocytes/100 leukocyt esOrdered By: Dr. Her on 02-26-2023 Monocytes/100 WBC (Bld) 7.9 % 0-10 [facility] Blood platelet mean volumeOr dered By: Dr. Her on 02-26-2023 Platelet mean volume (Bld) [Entitic vol] 9.3 fL 6.2-12.0 [facility] Determination of erythrocyte mean corpuscular volume (MCV)Ordered By: Dr. Her on 02-26-2023 MCV (RBC) [Entitic vol] 91.1 fL 80-94 [facility] Hematocrit Auto (Bld) [Volum e fraction]Ordered By: Dr. Her on 02-26-2023 Hematocrit (Bld) [Volume fraction] 45.2 % 40-54 [facility] Laboratory - Chemistry and C hemistry - challengeOrdered By: Dr. Her on 02-26-2023 ALP [Catalytic activity/Vol] 71 U/L 45-117 [facility] ALT [Catalytic activity/Vol] 35 U/L 16-61 [facility] CO2 [Moles/Vol] 30.0 mmol/L 21.0-32.0 [facility] Globulin (S) [Mass/Vol] 3.5 g/dL 2.2-4.2 [facility] Urea nitrogen/Creatinine [Mass ratio] 20.7 mg/mg 10-20 [facility] Laboratory - Hematology and Cell countsOrdered By: Dr. Her on 02-26-2023 Erythrocyte distribution width (RBC) [Entitic vol] 44.7 fL 35.1-43.9 [facility] Erythrocyte distribution width (RBC) [Ratio] 13.3 % 11.6-14.6 [facility] Immature granulocytes/100 WBC (Bld) 0.100 % 0.0-0.9 [facility] Comment on above: IG% - Immature Granu locytes (promyelocytes, myelocytes and metamyelocytes) > 1% indicates that a LEFT SHIFT is Present. MCH (RBC) [Entitic mass] 30.8 pg 27.0-32.0 [facility] Nucleated RBC/100 W[facility] (Bld) [Ratio] 0 % [facility] [Mass/Vol]Or dered By: Dr. Her on 02-26-2023 MCHC (RBC) [Mass/Vol] 33.8 g/dL 32-36 [facility] No Panel InformationOrdered By: Dr. Her on 02-26-2023 Estimated GFR (MDRD) Amer 98 mL/min >60 [facility] Comment on above: GFR Calc Estimated GFR (MDRD) Non-Af Amer 81 mL/min >60 [facility] Comment on above: Non- GFR Calc Thyroid Stimulating Hormone (TSH) 1.42 uIU/mL 0.358-3.74 [facility] Vitamin D 25-Hydroxy 32.6 ng/mL [facility] Comment on above: Vitamin D 25(OH) Sta tus Range Deficiency <20 ng/mL (50nmol/L) Insufficiency 20 - 30 ng/mL (50 - 75 nmol/L) Sufficiency 30 - 100 ng/mL (75 - 250 nmol/L) Toxicity >100 ng/mL (>250 nmol/L) Platelets bldOrdered By: Dr. Her on 02-26-2023 Platelets (Bld) [#/Vol] 287 10*3/uL 150-450 [facility] Serum or plasma albumin rebecca urement (mass/volume)Ordered By: Dr. Her on 02-26-2023 Albumin [Mass/Vol] 3.5 g/dL 3.2-5.0 [facility] Serum or plasma albumin/glob ulin mass ratioOrdered By: Dr. Her on 02-26-2023 Albumin/Globulin [Mass ratio] 1.0 {ratio} 0.9-2.4 [facility] Serum or plasma calcium rebecca urement (mass/volume)Ordered By: Dr. Her on 02-26-2023 Calcium [Mass/Vol] 8.8 mg/dL 8.5-10.1 [facility] Serum or plasma creatinine m easurement (mass/volume)Ordered By: Dr. Her on 02-26-2023 Creatinine [Mass/Vol] 0.97 mg/dL 0.70-1.30 [facility] Comment on above: The validity of the calculated GFR & GFRAA in patients over 70 years has not been determined. Clinical correlation is essential. Serum or plasma urea nitroge n measurement (mass/volume)Ordered By: Dr. Her on 02-26-2023 Urea nitrogen [Mass/Vol] 20 mg/dL 7-18 [facility] Thin prep Papanicolaou smear with manual screeningOrdered By: Dr. Her on 02-26-2023 Thin prep Papanicolaou smear with manual screening 20 U/L [facility] Comment on above: Slight Hemolysis, Re sult may be falsely increased. Thin prep Papanicolaou smear with manual screening 6 5-15 [facility] CNPNon 01-29-2023 [facility] ([facility]) TYRONE AGUILAR ([id number]) 1950 M Date Time Provider Department 01/29/23 PADMINI PARRA [facility] During your visit today, we recorded the following information about you: Rashawn Murrell MA 01/29/2023 11:03 AM Signed Sent demographics, script and office note To:[facility] Fax:[phone] Phone: Allergies As of Date: 01/29/2023 (No Known Allergies) Date Reviewed: 03/28/2022 Reviewed by: Nathaly Rodrigez APRN.OIL TRANSPORT DRIVER - Fully Assessed Reason for Visit: PAP Rx Faxed [[id number]] Prescriptions as of 01/29/2023 - CPAP/BIPAP/OTHER Type .CPAPSettings into a note to see current settings/supplies/DME information. - cholecalciferol, Vitamin D3, (VITAMIN D3) 1,250 mcg (50,000 unit) cap capsule Take 1 capsule by mouth one time a week. - CPAP Pressure change to Settings 8 - 15 cm H2O, EPR to 3 at fulltime, Response to SOFT, suitable mask per pt preference, chin strap, head gear, humidity, heated tubing (JUSTUS), lifetime supplies. 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 - Valsartan-hydroCHLOROt hiazide 160-12.5 mg per tablet - citalopram hydrobromide (CELEXA) 10 mg tablet Problem List As Of Date 01/29/2023 Noted Resolved AMALIA (obstructive sleep apnea) [G47.33] 08/23/2021 Encounter Status:Closed by RASHAWN MURRELL on 01/29/23 Normal [facility] CNOVon 01-28-2023 CNOV Office Visit ([facility] ) TYRONE AGUILAR ([id number]) 1950 M Date Time Provider Department 01/28/23 2:00 PM PADMINI PARRA During your visit today, we recorded the following information about you: Pulse Blood pressure 80/minute 140/86 Padmini Parra APRN.CNP 01/28/2023 5:42 PM Signed [facility] Follow up/ Established patient visit Date of last visit :03/28/22 Impression: 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 (obstructive sleep apnea) (primary encounter diagnosis) 71 yo male who presents for follow up for severe AMALIA (AHI 101) after starting CPAP treatment. He is doing well with nightly use and benefits. The sleep apnea remains sub optimally controlled, but great improvements from baseline. Patient is comfortable, no issues with use, He will try to avoid supine sleep, and we will adjust pressures to 8-15 cm H2O as set prior. No need for PAP titration presently. Plan: - Continue Auto CPAP and adjust back to 8-15 cmH2O. - Remember to clean your mask and equipment regularly, as directed. - You should be eligible for new supplies approximately every 3-6 months, depending on your insurance coverage. Contact your [employer] company for new supplies as needed. - Follow up in 5 months Nathaly M Rodrigez, LINOTYPE MACHINIST.OIL TRANSPORT DRIVER Interval history : Here for follow up for AMALIA management. SLEEP APNEA Sleep apnea type : AMALIA, Most Recent Apnea-Hypopnea Index (AHI): 101 Treatment : PAP therapy DME: [facility] PAP History: Uses AutoPAP for 6-7 hours per night, 7 nights per week. Current PAP settin-15 cm H2O. Difficulties with AutoPAP: None Reviewed objective PAP compliance data: requested Mask type: full face mask Uses humidity: Yes, Protocol: distilled There is a perceived benefit by the patient: sleep is better, and less frequent wakenings. Observers report abolition of snoring with AutoPAP use. -------- SLEEP HYGIENE QUESTIONS: Estimated total sleep time ( in a 24 hour period of time) : 6-7 Naps : No PATIENT-ENTERED QUESTIONNAIRE SLEEP SCORES Sleep Questions 01/22/2023 Reason for visit: Sleep apnea Average hours slept in 24 hours: 8 Average hours of CPAP per night: 8 Percent of nights CPAP used at least 4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 SCREENING [facility] Start: [address] COLONOGRAPHY [facility] Start: 1994 DIABETES SCREEN DIABETES SCREEN [facility] Start: 1994 Diabetes Screening Diabetes Screenin g [facility] Start: 1994 FECAL OCCULT BLOOD FECAL OCCULT BLOO D [facility] Start: 1994 Screening for malign ant neoplasm of colon [facility] Start: 1994 SIGMOIDOSCOPY SIGMOIDOSCOPY [facility] Start: 1984 Lipid panel Lipid Screening [facility] Start: 1984 LIPID SCREEN LIPID SCREEN [facility] Start: 1968 Urine microalbumin profile [facility] Start: 1967 Anxiety Screening Anxiety Screening [facility] Start: 1967 Depression Screening Depression Scre ening [facility] Start: 1967 HEPATITIS C SCREENING HEPATITIS C [facility] Start: 1967 Hepatitis C screening Hepatitis C [facility] Immunizations Immunization Date Immunization Notes Care Provider Fa osmar 09-07-2023 influenza virus vacc ine, unspecified formulation Kamille Gardiner Work Phone: [facility] Payers Date Payer Category Payer Self-pay [id number] 2024 Self-pay [id number] 2020 Medicare [facility] AARP MEDICAR E [facility] A[facility] MEDICARE HMO [id number] 2020-Present [phone] [address] [address] [place] [address] HMO [id number] 2020 Medicare [id number] 2020 Unknown [id number] Medicare [id number] Unknown [id number] Unknown [id number] Unknown [id number] Unknown [id number] Unknown [id number] Unknown [id number] Unknown [id number] Social History Date Type Detail Facility Tobacco smoking stat us PAIS Unknown if ever smoked [facility] Work Phone: Start: 1950 Sex Assigned At Male C [facility] Start: 05-21-2021 End: 01-28-2023 Tobacco smoking status NHIS Never smoked tobacco [facility] Start: 05-21-2021 End: 01-28-2023 Tobacco use and exposure Smokeless tobacco non-user [facility] Start: 05-21-2021 End: 01-01-2024 History of Social function [facility] Start: 05-21-2021 End: 01-01-2024 Tobacco use panel [facility] Adult Depression Screening Assessment 0 [facility] Start: 05-18-2021 Gender identity Identifies as male gender (finding) [facility] Start: 05-18-2021 Sexual orientation Heterosexual (fin ding) [facility] Start: 06-22-2021 End: 07-22-2021 Exposure to SARS-CoV-2 (event) Not sure [facility] Tobacco smoking stat us [facility] Unknown if ever smoked [facility] Work Phone: Start: 02-25-2025 Sex Male (finding) [facility] Clinical Notes 07-22-2021 to 03-03-2025 Note Date & Type Note Facility 03-03-2025 Evaluation note Diagnosis Onset Date Resolution Acute bronchitis, unspecified acute March 03, 2025 4:01pm [facility] Work Phone: 1(155) 980-230403-25-2025 Radiology Diagnostic study note [facility] Imaging Services [address] [place] [id number] L/S Spine Min 4 Views MR#: [id number] Acct: [id number] Name: TYRONE AGUILAR Rep #: [id number] : 1950 M 74 From: Kylah Lowe MD PCP: Dr. Eriberto Her MD Status: REG C Study:L/S Spine Min 4 Views Date of Exam: 02/20/25 Exam# [id number] Ordering Dr: Eriberto Her MD EXAM: XR Lumbosacral Spine Flexion/Extension Only, 2 or 3 Views CLINICAL INDICATION: LOW BACK PAIN TECHNIQUE: Lateral flexion/extension views of the lumbar spine and sacrum. COMPARISON: No relevant prior studies available. FINDINGS: VERTEBRAE: Mild vertebral height loss of L3 and L4 vertebral bodies. Multilevel endplate degenerative changes and disc disease of L1-S1. Moderate facet arthropathy L4-S1. No acute fracture. Normal sagittal alignment. No instability. SACRUM/COCCYX: Unremarkable as visualized. No acute fracture. DISC SPACES: No acute findings. No significant narrowing. SOFT TISSUES: Unremarkable. RAD/L/S Spine Min 4 Views IMPRESSION: Degenerative changes as above. Reading [facility] CC: Dr. Eriberto Her MD ~ Molder Vacuum: Signed [facility]03-25-2025 Radiology Diagnostic study note [facility] Imaging Services [address] [place] [address] Knee 4 or More Views MR#: [id number] Acct: [id number] Name: TYRONE AGUILAR Rep #: [id number] : 1950 M 74 From: Glen Rosales MD PCP: Dr. Eriberto Her MD Status: POPEYE MCMILLAN Study:Knee 4 or More Views Date of Exam: 02/20/25 Exam# [id number] Ordering Dr: Eriberto Her MD EXAM: Knee four views left CLINICAL HISTORY: Pain COMPARISON: None available TECHNIQUE: Four views of the left knee; AP, lateral, tunnel and sunrise views FINDINGS: No fracture, dislocation or joint effusion. Appearance of mild joint space narrowing at the medial compartment. Otherwise the joint spaces appear within limits. No osteophyte formation, osseous lesion or periosteal reaction identified. Soft tissues appear within limits. RAD/Knee 4 or More Views IMPRESSION: Suggestion of mild medial compartment joint space narrowing. Study otherwise appears within limits. Reading Location: [id number] CC: Dr. Eriberto Her MD ~ Molder Vacuum: Signed [facility]02-02-2024 NoteHNO ID: [id number] Author: VINAY BOCANEGRA MA Service: ? Author Type: Starting Sheet Tank Operator Type: Progress Notes Filed: 01/01/2024 09:37 Note Text:[facility]02-02-2024 NoteHNO ID: [id number] Author: NATHALY RODRIGEZ APRN.CNP Service: ? Author Type: Nurse Practitioner Type: Progress Notes Filed: 01/01/2024 09:37 Note Text: [facility] Sleep Disorders Center Follow-up/Established patient visit Date of last visit: 01/28/2023 IMPRESSION: Amalia (obstructive sleep apnea) (primary encounter diagnosis) Plmd (periodic limb movement disorder) Snoring Fatigue, unspecified type Excessive daytime sleepiness Witnessed episode of apnea Nocturia Clinical Global Impression of Change ( CGI-C) Compared to the patient's condition at baseline, how much has the patient changed? Much improved - Doing well with PAP therapy. - Denies mask or pressure intolerance. - Compliant and benefiting from treatment. PLAN: - Continue Auto CPAP at 8-15 cmH2O. - Consider trying a hybrid style full face mask with tubing on top. - Remember to clean your mask and equipment regularly, as directed. - You should be eligible for new supplies approximately every 3-6 months, depending on your insurance coverage. Contact your Durable Medical Equipment (DME) company for new supplies as needed. - Follow up in 12 months or sooner if needed. Padmini Parra APRN.OIL TRANSPORT DRIVER HPI: SLEEP APNEA Sleep apnea type : AMALIA, Most Recent Apnea-Hypopnea Index (AHI): 101 Treatment : PAP therapy DME: [employer] Daily PAP History: Current PAP settin-15 cm H2O. Difficulties with AutoPAP: None Reviewed objective PAP compliance data: 5 Average use: 5 hours 36 minutes 90/95th percentile pressure: 12.3 Leaks 5.2, residual AHI 6.8 Mask issues: None Uses chin strap: No Uses ramp function: Yes Uses humidity: Yes There is a perceived benefit by the patient SLEEP-WAKE SCHEDULE Bedtime: 10 PM Latency: 45-60 minutes Nocturnal wakings: usually none Wake time: 6 AM, without an alarm. On weekends, he maintains the same sleep schedule. Average total sleep time (in a 24 hour period): 7.5-8 hours. He does take naps. Frequency: on occasion in the afternoon, Duration: a short time. Sleep behaviors: None SLEEP FUNCTIONAL OUTCOME MEASURES: reviewed and uploaded. PAST MEDICAL HISTORY Diagnosis Date AMALIA (obstructive sleep apnea) PSH, SH: Reviewed REVIEW OF SYSTEMS SLEEP RELATED ROS GENERAL: See HPI RESPIRATORY: negative dyspnea CARDIOVASCULAR: negative chest pain : negative nocturia MUSCULOSKELETAL: positive generalized body pain SKIN: negative mask irritation PSYCH: negative depression and suicidal thoughts ENDOCRINE: negative thyroid problems NEURO: negative cognitive changes All other systems reviewed and are negative. ALLERGIES No Known Allergies CURRENT MEDICATIONS: CPAP/BIPAP/OTHER Type .CPAPSettings into a note to see current settings/supplies/DME information. CPAP Pressure change to Settings 8 - 15 cm H2O, EPR to 3 at fulltime, Response to SOFT, suitable mask per pt preference, chin strap, head gear, humidity, heated tubing (JUSTUS), lifetime supplies. 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 Valsartan-hydroCHLOROthiazide 160-12.5 mg per tablet citalopram hydrobromide (CELEXA) 10 mg tablet CPAP/BIPAP/OTHER Supplies : Settings 8 - 15 cm H2O, suitable mask per pt preference, chin strap, head gear, humidity, tubing, lifetime supplies. 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 cholecalciferol, Vitamin D3, (VITAMIN D3) 1,250 mcg (50,000 unit) cap capsule Take 1 capsule by mouth one time a week. Vital signs: BP 109/71 Pulse 69 Ht 182.9 cm (6') Wt 103 kg (227 lb) SpO2 97% BMI 30.79 kg/m? PHYSICAL EXAM: General appearance: NAD, attire appropriate per season Mental status: A AND O X3 Speech: Clear AND Coherent Constitutional: WNL Skin: W/D/I on exposed skin Musculoskeletal/ Extremities: Neg BLE edema Neuro: Gait stable, hearing intact to conversation Impression: 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 (obstructive sleep apnea) (primary encounter diagnosis) 73 yo male who presents for annual compliancy visit for AMALIA on CPAP with nightly use and benefits noted. Past week he was on vacation, but uses every night otherwise. Plan: - Continue Auto CPAP at 8-15 cmH2O. - Order for annual supplies - Remember to clean your mask and equipment regularly, as directed. - You should be eligible for new supplies approximately every 3-6 months, depending on your insurance coverage. Contact your Durable Medical Equipment (DME) company for new supplies as needed. Follow up in 1 year(s). Nathaly Rodrigez APRN.FANNY I spent a total of 23 minutes on the date of the service which included preparing to see the patient, [id number] patient care, completing clinical documentation, obtaining and/or reviewing separately obtained history, performing a medically appropriate examination, counseling and educating the patient/family/caregiver, ordering medications, tests, or procedures, and communicating results to the patient/family/caregiver.[facility] 01-01-2024 NoteHNO ID: [id number] Author: VINAY BOCANEGRA MA Service: ? Author Type: Starting Sheet Tank Operator Type: Progress Notes Filed: 01/01/2024 09:37 Note Text:[facility]02-02-2024 Miscellaneous Notes* Telephone Encounter - Vinay Bocanegra MA - 01/01/2024 10:17 AM EST Faxed to [facility] [place] Pres[place] for Cpap. Received fax confirmation. Placed in file. Vinya Bocanegra MA [facility] History of Present illness Narrative* Vinay Bocanegra MA - 01/01/2024 9:30 AM EST * Vinay Bocanegra MA - 01/01/2024 9:30 AM EST * Nathaly Rodrigez APRN.CNP - 01/01/2024 9:30 AM EST [facility] Disorders [facility] Follow-up/Established patient visit Date of last visit: 01/28/2023 IMPRESSION: Amalia (obstructive sleep apnea) (primary encounter diagnosis) Plmd (periodic limb movement disorder) Snoring Fatigue, unspecified type Excessive daytime sleepiness Witnessed episode of apnea Nocturia Clinical Global Impression of Change ( CGI-C) Compared to the patient's condition at baseline, how much has the patient changed? Much improved - Doing well with PAP therapy. - Denies mask or pressure intolerance. - Compliant and benefiting from treatment. PLAN: - Continue Auto CPAP at 8-15 cmH2O. - Consider trying a hybrid style full face mask with tubing on top. - Remember to clean your mask and equipment regularly, as directed. - You should be eligible for new supplies approximately every 3-6 months, depending on your insurance coverage. Contact your [employer] (DME) company for new supplies as needed. - Follow up in 12 months or sooner if needed. Padmini Parra APRN.OIL TRANSPORT DRIVER HPI: SLEEP APNEA Sleep apnea type : AMALIA, Most Recent Apnea-Hypopnea Index (AHI): 101 Treatment : PAP therapy DME: [facility] PAP History: Current PAP settin-15 cm H2O. Difficulties with AutoPAP: None Reviewed objective PAP compliance data: 5 Average use: 5 hours 36 minutes 90/95th percentile pressure: 12.3 Leaks 5.2, residual AHI 6.8 Mask issues: None Uses chin strap: No Uses ramp function: Yes Uses humidity: Yes There is a perceived benefit by the patient SLEEP-WAKE SCHEDULE Bedtime: 10 PM Latency: 45-60 minutes Nocturnal wakings: usually none Wake time: 6 AM, without an alarm. On weekends, he maintains the same sleep schedule. Average total sleep time (in a 24 hour period): 7.5-8 hours. He does take naps. Frequency: on occasion in the afternoon, Duration: a short time. Sleep behaviors: None SLEEP FUNCTIONAL OUTCOME MEASURES: reviewed and uploaded. PAST MEDICAL HISTORY Diagnosis Date AMALIA (obstructive sleep apnea) PSH, SH: Reviewed REVIEW OF SYSTEMS SLEEP RELATED ROS GENERAL: See HPI RESPIRATORY: negative dyspnea CARDIOVASCULAR: negative chest pain : negative nocturia MUSCULOSKELETAL: positive generalized body pain SKIN: negative mask irritation PSYCH: negative depression and suicidal thoughts ENDOCRINE: negative thyroid problems NEURO: negative cognitive changes All other systems reviewed and are negative. ALLERGIES No Known Allergies CURRENT MEDICATIONS: CPAP/BIPAP/OTHER Type .CPAPSettings into a note to see current settings/supplies/DME information. CPAP Pressure change to Settings 8 - 15 cm H2O, EPR to 3 at fulltime, Response to SOFT, suitable mask per pt preference, chin strap, head gear, humidity, heated tubing (JUSTUS), lifetime supplies. 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 Valsartan-hydroCHLOROthiazide 160-12.5 mg per tablet citalopram hydrobromide (CELEXA) 10 mg tablet CPAP/BIPAP/OTHER Supplies : Settings 8 - 15 cm H2O, suitable mask per pt preference, chin strap, head gear, humidity, tubing, lifetime supplies. 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 cholecalciferol, Vitamin D3, (VITAMIN D3) 1,250 mcg (50,000 unit) cap capsule Take 1 capsule by mouth one time a week. Vital signs: BP 109/71 Pulse 69 Ht 182.9 cm (6') Wt 103 kg (227 lb) SpO2 97% BMI 30.79 kg/m PHYSICAL EXAM: General appearance: NAD, attire appropriate per season Mental status: A & O X3 Speech: Clear & Coherent Constitutional: WNL Skin: W/D/I on exposed skin Musculoskeletal/ Extremities: Neg BLE edema Neuro: Gait stable, hearing intact to conversation Impression: 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 (obstructive sleep apnea) (primary encounter diagnosis) 73 yo male who presents for annual compliancy visit for AMALIA on CPAP with nightly use and benefits noted. Past week he was on vacation, but uses every night otherwise. Plan: - Continue Auto CPAP at 8-15 cmH2O. - Order for annual supplies - Remember to clean your mask and equipment regularly, as directed. - You should be eligible for new supplies approximately every 3-6 months, depending on your insurance coverage. Contact your Durable Medical Equipment (DME) company for new supplies as needed. Follow up in 1 year(s). Nathaly Rodrigez APRN.FANNY I spent a total of 23 minutes on the date of the service which included preparing to see the patient, [id number] patient care, completing clinical documentation, obtaining and/or reviewing separately obtained history, performing a medically appropriate examination, counseling and educating the pat ient/family/caregiver, ordering medications, tests, or procedures, and communicating results to thepatient/family/caregiver. documented in this encounterBarney [facility]02-02-2024 Instructions* Patient Instructions* Nathaly Rodrigez APRN.CNP - 01/01/2024 9:17 AM EST - Call [facility] at [phone] to order your CPAP supplies - Any appointments can be scheduled through the central scheduling system for the [facility] [place] at [phone]. - To reach my offices, please call [phone] opt 5. - May use Message My Doc through My Chart for questions. - [facility] website: [email or web address] PAP Supply Guidelines Below are the guidelines for reordering your supplies. You will be responsible for your deductible,co-payments, and out of pocket expenses. Item Medicare & Commercial Insurance Nasal Mask (no headgear) 1 every 3 months Nasal Mask Cushion 1 every month Full Face Mask (no headgear) 1 every 3 months Full Face Mask Cushion 1 every month Nasal Pillows 2 every month Headgear 1 every 6 months Chin Strap 1 every 6 months Tubing 1 every 3 months Filters: Reusable 1 every 6 months Filters: Disposable 2 every month Humidifier Chamber(disposable) 1 every 6 months Equipment Cleaning Keeping your equipment clean is very important to assuring your success with positive pressure therapy. Following the guidelines below can help you avoid preventable respiratory infections, as well as ensure the proper operation and the usable life of the equipment. Daily: Wash mask or nasal pillows with mild dish soap. Rinse well and dry. Wash humidifier water chamber with mild dish soap. Rinse well and refill with water recommended by the level designer. Weekly: Wash hose with mild dish soap. Rinse well and hang to air dry or connect the hose to your CPAP/BIPAP and allow air to blow through the hose until dry. Soak the humidifier water chamber in 1 part white vinegar and 3 parts water for 30 minutes. Rinse well. Avoid: Alcohol, baby wipes, antibacterial soaps, glycerin, oil-based soap, peroxide, bleach, aromatic soaps and lotions. documented in this encounterBarney Children'[facility] Center03-01-2023 NoteHNO ID: [id number] Author: Padmini Parra APRN.FANNY Service: ? Author Type: Nurse Practitioner Type: Progress Notes Filed: 01/28/2023 5:42 PM Note Text: [facility] Follow up/ Established patient visit Date of last visit :03/28/22 Impression: 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 (obstructive sleep apnea) (primary encounter diagnosis) 71 yo male who presents for follow up for severe AMALIA (AHI 101) after starting CPAP treatment. He is doing well with nightly use and benefits. The sleep apnea remains sub optimally controlled, but great improvements from baseline. Patient is comfortable, no issues with use, He will try to avoid supine sleep, and we will adjust pressures to 8-15 cm H2O as set prior. No need for PAP titration presently. Plan: - Continue Auto CPAP and adjust back to 8-15 cmH2O. - Remember to clean your mask and equipment regularly, as directed. - You should be eligible for new supplies approximately every 3-6 months, depending on your insurance coverage. Contact your Durable Medical Equipment (DME) company for new supplies as needed. - Follow up in 5 months Nathaly Rodrigez APRN.OIL TRANSPORT DRIVER Interval history : Here for follow up for AMALIA management. SLEEP APNEA Sleep apnea type : AMALIA, Most Recent Apnea-Hypopnea Index (AHI): 101 Treatment : PAP therapy DME: [facility] PAP History: Uses AutoPAP for 6-7 hours per night, 7 nights per week. Current PAP settin-15 cm H2O. Difficulties with AutoPAP: None Reviewed objective PAP compliance data: requested Mask type: full face mask Uses humidity: Yes, Protocol: distilled There is a perceived benefit by the patient: sleep is better, and less frequent wakenings. Observers report abolition of snoring with AutoPAP use. SLEEP HYGIENE QUESTIONS: Estimated total sleep time ( in a 24 hour period of time) : 6-7 Naps : No PATIENT-ENTERED QUESTIONNAIRE SLEEP SCORES Sleep Questions 01/22/2023 Reason for visit: Sleep apnea Average hours slept in 24 hours: 8 Average hours of CPAP per night: 8 Percent of nights CPAP used at least 4 hours: 95 Accidents or near accidents due to drowsy driving: - [place] Sleepiness Scale 12/07/2021 03/24/2022 01/20/2023 Score 2 (No daytime sleepiness) 3 (No daytime sleepiness) 4 (No daytime sleepiness) PROMIS CAT Sleep Disturbance 12/07/2021 03/24/2022 01/20/2023 PROMIS Sleep Disturbance T-Score 46 (within normal limits) 46 (within normal limits) 46 (within normal limits) Insomnia Severity Index 05/18/2021 Score 16 Restless Leg Syndrome 12/07/2021 03/24/2022 01/20/2023 Score 10 11 11 PHQ-9 12/07/2021 03/24/2022 01/20/2023 Score 0 1 0 PROMIS Global Health - (T-Scores - the mean of general population = 50. Five points is a clinically meaningful difference.) 12/07/2021 03/24/2022 01/20/2023 Physical T-Score 57.7 54.1 61.9 Mental T-Score 67.6 53.3 67.6 PMH, PSH, SH: reviewed SLEEP RELATED ROS Review of Systems Constitutional: Positive for fatigue. Respiratory: Negative. Cardiovascular: Negative. Gastrointestinal: Negative for heartburn. Neurological: Negative for headaches. ALLERGIES No Known Allergies CURRENT MEDICATIONS: cholecalciferol, Vitamin D3, (VITAMIN D3) 1,250 mcg (50,000 unit) cap capsule Take 1 capsule by mouth one time a week. CPAP Pressure change to Settings 8 - 15 cm H2O, EPR to 3 at fulltime, Response to SOFT, suitable mask per pt preference, chin strap, head gear, humidity, heated tubing (JUSTUS), lifetime supplies. 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 Valsartan-hydroCHLOROthiazide 160-12.5 mg per tablet citalopram hydrobromide (CELEXA) 10 mg tablet PHYSICAL EXAMINATION: BP 140/86 (BP Site: Left Arm, BP Position: Sitting, BP Cuff Size: Large Adult) Pulse 80 SpO2 97% Neurological exam: Patient approapriately answering questions. Language function normal. Memory normal. Speech fluent. IMPRESSION: Amalia (obstructive sleep apnea) (primary encounter diagnosis) Plmd (periodic limb movement disorder) Snoring Fatigue, unspecified type Excessive daytime sleepiness Witnessed episode of apnea Nocturia Clinical Global Impression of Change ( CGI-C) Compared to the patient's condition at baseline, how much has the patient changed? Much improved - Doing well with PAP therapy. - Denies mask or pressure intolerance. - Compliant and benefiting from treatment. PLAN: - Continue Auto CPAP at 8-15 cmH2O. - Consider trying a hybrid style full face mask with tubing on top. - Remember to clean your mask and equipment regularly, as directed. - You should be eligible for new supplies approximately every 3-6 months, depending on your insurance coverage. Contact your Durable Medical Equipment (DME) company for new supplies as needed. - Follow up in 12 months or sooner if needed. Padmini Parra APRN.CNP I spent a total of 20 minutes on the date of the servic (more content not included)...[facility]03-01-2023 History of Present illness Narrative* Padmini Parra APRN.CNP - 01/28/2023 2:00 PM EST Images from the original note were not included. [facility] Follow up/ Established patient visit Date of last visit :03/28/22 Impression: 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 (obstructive sleep apnea) (primary encounter diagnosis) 71 yo male who presents for follow up for severe AMALIA (AHI 101) after starting CPAP treatment. He isdoing well with nightly use and benefits. The sleep apnea remains sub optimally controlled, but great improvements from baseline. Patient is comfortable, no issues with use, He will try to avoid supine sleep, and we will adjust pressures to 8-15 cm H2O as set prior. No need for PAP titration presently. Plan: - Continue Auto CPAP and adjust back to 8-15 cmH2O. - Remember to clean your mask and equipment regularly, as directed. - You should be eligible for new supplies approximately every 3-6 months, depending on your insurance coverage. Contact your [employer] (DME) company for new supplies as needed. - Follow up in 5 months Nathaly Rodrigez APRN.CNP Interval history : Here for follow up for AMALIA management. SLEEP APNEA Sleep apnea type : AMALIA, Most Recent Apnea-Hypopnea Index (AHI): 101 Treatment : PAP therapy DME: [facility] PAP History: Uses AutoPAP for 6-7 hours per night, 7 nights per week. Current PAP settin-15 cm H2O. Difficulties with AutoPAP: None Reviewed objective PAP compliance data: requested Mask type: full face mask Uses humidity: Yes, Protocol: distilled There is a perceived benefit by the patient: sleep is better, and less frequent wakenings. Observers report abolition of snoring with AutoPAP use. SLEEP HYGIENE QUESTIONS: Estimated total sleep time ( in a 24 hour period of time) : 6-7 Naps : No PATIENT-ENTERED QUESTIONNAIRE SLEEP SCORES Sleep Questions 01/22/2023 Reason for visit: Sleep apnea Average hours slept in 24 hours: 8 Average hours of CPAP per night: 8 Percent of nights CPAP used at least 4 hours: 95 Accidents or near accidents due to drowsy driving: - [place] Sleepiness Scale 12/07/2021 03/24/2022 01/20/2023 Score 2 (No daytime sleepiness) 3 (No daytime sleepiness) 4 (No daytime sleepiness) PROMIS CAT Sleep Disturbance 12/07/2021 03/24/2022 01/20/2023 PROMIS Sleep Disturbance T-Score 46 (within normal limits) 46 (within normal limits) 46 (within normal limits) Insomnia Severity Index 05/18/2021 Score 16 Restless Leg Syndrome 12/07/2021 03/24/2022 01/20/2023 Score 10 11 11 PHQ-9 12/07/2021 03/24/2022 01/20/2023 Score 0 1 0 PROMIS Global Health - (T-Scores - the mean of general population = 50. Five points is a clinicallymeaningful difference.) 12/07/2021 03/24/2022 01/20/2023 Physical T-Score 57.7 54.1 61.9 Mental T-Score 67.6 53.3 67.6 PMH, PSH, SH: reviewed SLEEP RELATED ROS Review of Systems Constitutional: Positive for fatigue. Respiratory: Negative. Cardiovascular: Negative. Gastrointestinal: Negative for heartburn. Neurological: Negative for headaches. ALLERGIES No Known Allergies CURRENT MEDICATIONS: cholecalciferol, Vitamin D3, (VITAMIN D3) 1,250 mcg (50,000 unit) cap capsule Take 1 capsule by mouth one time a week. CPAP Pressure change to Settings 8 - 15 cm H2O, EPR to 3 at fulltime, Response to SOFT, suitable mask per pt preference, chin strap, head gear, humidity, heated tubing (JUSTUS), lifetime supplies. 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 Valsartan-hydroCHLOROthiazide 160-12.5 mg per tablet citalopram hydrobromide (CELEXA) 10 mg tablet PHYSICAL EXAMINATION: BP 140/86 (BP Site: Left Arm, BP Position: Sitting, BP Cuff Size: Large Adult) Pulse 80 SpO2 97% Neurological exam: Patient approapriately answering questions. Language function normal. Memory normal. Speech fluent. IMPRESSION: Amalia (obstructive sleep apnea) (primary encounter diagnosis) Plmd (periodic limb movement disorder) Snoring Fatigue, unspecified type Excessive daytime sleepiness Witnessed episode of apnea Nocturia Clinical Global Impression of Change ( CGI-C) Compared to the patient's condition at baseline, how much has the patient changed? Much improved - Doing well with PAP therapy. - Denies mask or pressure intolerance. - Compliant and benefiting from treatment. PLAN: - Continue Auto CPAP at 8-15 cmH2O. - Consider trying a hybrid style full face mask with tubing on top. - Remember to clean your mask and equipment regularly, as directed. - You should be eligible for new supplies approximately every 3-6 months, depending on your insurance coverage. Contact your Durable Medical Equipment (DME) company for new supplies as needed. - Follow up in 12 months or sooner if needed. Padmini Parra APRN.FANNY I spent a total of 20 minutes on the date of the service which included preparing to see the patient, [id number] patient care, completing clinical documentation, counseling and educating the patient/family/caregiver, and ordering medications, tests, or procedures. documented in this encounterBarney [facility] Center07-08-2022 Miscellaneous Notes* Telephone Encounter - Checo Boo RN - 06/06/2022 10:02 AM EDT [employer] message sent to patient. Vit D lab ordered. documented in this encounterBarney Children'S Medical Center06-27-2022 Miscellaneous Notes* Telephone Encounter - Checo Boo RN - 05/26/2022 8:23 AM EDT [employer] message sent to patient. documented in this encounterBarney Children'S Medical Center04-29-2022 Miscellaneous Notes* Telephone Encounter - Phylicia Olivera MA - 03/28/2022 2:39 PM EDT Faxed order for pressure change to [facility]. Confirmation received. documented in this encounterBarney Children'S Medical Center04-29-2022 History of Present illness Narrative* Nathaly Rodrigez APRN.FANNY - 03/28/2022 1:30 PM EDT Images from the original note were not included. [facility] Follow-up/Established patient visit Date of last visit: 12/13/2021 Impression: 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 (obstructive sleep apnea) (primary encounter diagnosis) 71 yo male who presents for follow up for severe AMALIA (AHI 101) after starting CPAP treatment. He isdoing well with nightly use and benefits. Plan: - Continue Auto CPAP and adjust to 10-15 cmH2O. - Remember to clean your mask and equipment regularly, as directed. - You should be eligible for new supplies approximately every 3-6 months, depending on your insurance coverage. Contact your Durable Medical Equipment (DME) company for new supplies as needed. Follow up in 3 month(s) for a review of download. Nathaly Rodrigez APRN.OIL TRANSPORT DRIVER HPI: 71 yo male who presents for follow up for severe AMALIA (AHI 101) after starting CPAP treatment. He is doing well with nightly use and benefits. The sleep apnea remains sub optimally controlled, but great improvements from baseline. SLEEP APNEA Sleep apnea type : AMALIA, Most Recent Apnea-Hypopnea Index (AHI): 101 Treatment : PAP therapy DME: [facility] PAP History: Current PAP settin-15 cm H2O. . Difficulties with AutoPAP: None Reviewed objective PAP compliance data: 02/26/22 to 03/27/2022 Compliance download: 80% >=4 hours Average use: 6 hours 47 minutes 90/95th percentile pressure: 14.0 Leaks 1.6, residual AHI 9.8 Mask issues: NA Uses chin strap: No Uses ramp function: Yes Uses humidity: Yes There is a perceived benefit by the patient SLEEP-WAKE SCHEDULE Bedtime: 9-930 PM Latency: no issue Nocturnal wakings: Wake time: 530 -6 AM, without an alarm. On weekends, he maintains the same sleep schedule. Average total sleep time (in a 24 hour period): 8 hours. He does not take naps. SLEEP FUNCTIONAL OUTCOME MEASURES: reviewed and uploaded. PAST MEDICAL HISTORY Diagnosis Date AMALIA (obstructive sleep apnea) PSH, SH: Reviewed REVIEW OF SYSTEMS SLEEP RELATED ROS GENERAL: See HPI RESPIRATORY: negative dyspnea CARDIOVASCULAR: negative chest pain : negative nocturia MUSCULOSKELETAL: positive right leg pain SKIN: negative mask irritation PSYCH: negative depression and anxiety ENDOCRINE: negative thyroid problems All other systems reviewed and are negative. ALLERGIES No Known Allergies CURRENT MEDICATIONS: CPAP Pressure change to Settings 8 - 15 cm H2O, EPR to 3 at fulltime, Response to SOFT, suitable mask per pt preference, chin strap, head gear, humidity, heated tubing (JUSTUS), lifetime supplies. 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 Valsartan-hydroCHLOROthiazide 160-12.5 mg per tablet citalopram hydrobromide (CELEXA) 10 mg tablet Vital signs: BP 129/89 Pulse 61 Ht 182.9 cm (6') Wt 103.4 kg (228 lb) BMI 30.92 kg/m PHYSICAL EXAM: General appearance: NAD, attire appropriate per season Mental status: A & O X 3 Speech: Clear & Coherent Constitutional: Overweight Skin: W/D/I on exposed skin Musculoskeletal/ Extremities: Neg BLE edema Neuro: Gait stable, hearing intact to conversation Impression: 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 (obstructive sleep apnea) (primary encounter diagnosis) 71 yo male who presents for follow up for severe AMALIA (AHI 101) after starting CPAP treatment. He isdoing well with nightly use and benefits. The sleep apnea remains sub optimally controlled, but great improvements from baseline. Patient is comfortable, no issues with use, He will try to avoid supine sleep, and we will adjust pressures to 8-15 cm H2O as set prior. No need for PAP titration presently. Plan: - Continue Auto CPAP and adjust back to 8-15 cmH2O. - Remember to clean your mask and equipment regularly, as directed. - You should be eligible for new supplies approximately every 3-6 months, depending on your insurance coverage. Contact your Durable Medical Equipment (DME) company for new supplies as needed. - Follow up in 5 months Nathaly Rodrigez APRN.FANNY I spent a total of 24 minutes on the date of the service which included preparing to see the patient, [id number] patient care, completing clinical documentation, obtaining and/or reviewing separately obtained history, performing a medically appropriate examination, counseling and educating the pat ient/family/caregiver, ordering medications, tests, or procedures and communicating results to the patient/family/caregiver. documented in this encounterBarney Children'S Medical Center08-23-2021 History of Present illness Narrative* Michael Silva RT(R) - 07/22/2021 7:00 PM EDT Radiology Service Progress Note PATIENT NAME: Tyrone Aguilar DATE OF SERVICE: July 22, 2021 TIME: 6:59 PM PATIENT IDENTITY VERIFICATION COMPLETED USING TWO (2) IDENTIFIERS: Name and Date of confirmedby patient verbally. FALL SCREENING: Has the patient had 2 falls in the last year or 1 fall with injury or currently using an Ambulatory Assistive Device (Walker, Cane, Wheelchair, Crutches, etc.)? No PATIENT GENDER DATA: Male PATIENT RELEVANT IMPLANT DATA REVIEWED: Not Applicable RADIOLOGY DEPARTMENT: General X-ray: Exam(s) Completed: Lower Extremity X- Ray(s): Foot, Left and Wt. Bearing PERIPHERAL IV DATA: Not applicable SIGNED BY: RT Teressa(Brenda) July 22, 2021 6:59 PM documented in this encounterBarney Children'S Medical CenterEvaluation noteNo assessment information availableWLima City Hospital Work Phone: Evaluation note* Diagnosis AMALIA (obstructive sleep apnea)- Primary Obstructive sleep apnea (adult) (pediatric) [facility]* Diagnosis Vitamin D deficiency- Primary Unspecified vitamin D deficiency documented in this encounter [facility] note* Diagnosis AMALIA (obstructive sleep apnea)- Primary Obstructive sleep apnea (adult) (pediatric) PLMD (periodic limb movement disorder) Periodic limb movement disorder Snoring Other dyspnea and respiratory abnormality Fatigue, unspecified type Excessive daytime sleepiness Witnessed episode of apnea Nocturia documented in this encounter [facility] note* Diagnosis AMALIA (obstructive sleep apnea)- Primary Obstructive sleep apnea (adult) (pediatric) documented in this encounter [facility] note* Diagnosis Foot pain, left Pain in limb documented in this encounter [facility] for referral (narrative)* Diagnostic Procedure Only (Urgent) - Closed Specialty Diagnoses / Procedures Referred By Contac t Referred To Contact XR IMAGING Diagnoses Foot pain, left Procedures XR FOOT GENERAL 3V AP/LAT/OBL LT X-RAY FOOT MINIMUM 3 VIEWS Vinay Hernandez APRN.OIL TRANSPORT DRIVER [address] [place] [address] [place] [address] Referral ID Status Reason Start Date Expiration Date Visits Re quested Visits Authorized [id number] Closed 07/22/2021 11/29/2021 1 1 [facility] for referral (narrative)No reason for referral information availableWLima City Hospital Work Phone: Reason for visit Narrative* Diagnostic Procedure Only (Urgent) - Closed Specialty Diagnoses / Procedures Referred By Contac t Referred To Contact XR IMAGING Diagnoses Foot pain, left Procedures XR FOOT GENERAL 3V AP/LAT/OBL LT X-RAY FOOT MINIMUM 3 VIEWS Vinay Hernandez APRN.OIL TRANSPORT DRIVER [address] [place] [address] [place] [address] Referral ID Status Reason Start Date Expiration Date Visits Re quested Visits Authorized [id number] Closed 07/22/2021 11/29/2021 1 1 [facility] Reason for Referral Specialty Diagnoses / Procedures Referred By Contac t Referred To Contact Diagnoses AMALIA (obstructive sleep apnea) Procedures PROVIDER ORDERED FOLLOW UP OFFICE/OUTPATIENT NEW HIGH MDM 60 MINUTES Nathaly Rodrigez APRN.OIL TRANSPORT DRIVER [address] [place] [address] Referral ID Status Reason Start Date Expiration Date Visits Requested Visits Authorized [id number] Authorized PCP Requested Referral 01/01/2024 12/31/2024 1 1 Summary Purpose Family History No Family History Records Found Advance Directives No Advanced Directives Records FoundNo Advanced Directives Records Found Chief Complaint and Reason for Visit Chief Complaint Admit Date cough March 03, 2025 4:01 pm H[facility] HERE March 30, 2025 7:30am Reason for Visit Admit Date Acute bronchitis, unspecified March 03, 2025 4:01pm Chief Complaint Admit Date cough March 03, 2025 4:01 pm HIP RX HERE April 27, 2025 7:30a m SWOLLEN RT [facility] April 27, 2025 8:08a m Additional Source Comments Goals (unrecognized section and content) Goals may be documented in a n alternate sectionGoals may be documented in an alternate sectionGoals may be documented in an alternate sectionGoals may be documented in an alternate sectionGoals may be documented in an alternate sectionGoals may be documented in an alternate sectionGoals may be documented in an alternate section Source Comments (unrecognize d section and content) In the event this informatio n is protected by the Federal Confidentiality of Alcohol and Drug Abuse Patient Records regulations: The Federal rules restrict any use of the information to criminally investigate or prosecute any alcohol or drug abuse patient.[facility] Center[facility] the event this information is protected by the Federal Confidentiality of Alcohol and Drug Abuse Patient Records regulations: The Federal rules restrict any use of the information to criminally investigate or prosecute any alcohol or drug abuse patient.[facility] Center[facility] the event this information is protected by the Federal Confidentiality of Alcohol and Drug Abuse Patient Records regulations: The Federal rules restrict any use of the information to criminally investigate or prosecute any alcohol or drug abuse patient.[facility] Center[facility] the event this information is protected by the Federal Confidentiality of Alcohol and Drug Abuse Patient Records regulations: The Federal rules restrict any use of the information to criminally investigate or prosecute any alcohol or drug abuse patient.[facility] CenterIn the event this information is protected by the Federal Confidentiality of Alcohol and Drug Abuse Patient Records regulations: The Federal rules restrict any use of the information to criminally investigate or prosecute any alcohol or drug abuse patient.[facility] CenterIn the event this information is protected by the Federal Confidentiality of Alcohol and Drug Abuse Patient Records regulations: The Federal rules restrict any use of the information to criminally investigate or prosecute any alcohol or drug abuse patient.[facility] CenterIn the event this information is protected by the Federal Confidentiality of Alcohol and Drug Abuse Patient Records regulations: The Federal rules restrict any use of the information to criminally investigate or prosecute any alcohol or drug abuse patient.[facility] CenterIn the event this information is protected by the Federal Confidentiality of Alcohol and Drug Abuse Patient Records regulations: The Federal rules restrict any use of the information to criminally investigate or prosecute any alcohol or drug abuse patient.[facility] CenterIn the event this information is protected by the Federal Confidentiality of Alcohol and Drug Abuse Patient Records regulations: The Federal rules restrict any use of the information to criminally investigate or prosecute any alcohol or drug abuse patient.[facility] Reason for Visit (unrecogniz ed section and content) Reason Comments Established Patient Reason Comments Orders Reason Comments Apnea Reason Comments Established Patient F/U to [facility] Reason Comments [facility] Faxed prescription Care Teams (unrecognized sec tion and content) Team Status: Active Member Role Status Dates Dr. Eriberto Her MD Primary Care Provider Active Team Status: Inactive Member Role Status Dates Dr. Eriberto Her MD Primary Care Provider, Attending Provider Active Team Status: Inactive Member Role Status Dates Dr. Eriberto Her MD Primary Care Provider Active Start: February 20, 2025 End: February 20, 2025 Dr. Eriberto Her MD Attending Provider Active Start: February 20, 2025 End: February 20, 2025 Dr. Eriberto Her MD Referring Provider Active Start: February 20, 2025 End: February 20, 2025 Team Status: Inactive Member Role Status Dates Dr. Eriberto Her MD Primary Care Provider Active Start: March 03, 2025 End: March 03, 2025 Dr. Eriberto Her MD Referring Provider Active Start: March 03, 2025 End: March 03, 2025 KINGS Fagan Attending Provider Active Sta rt: March 03, 2025 End: March 03, 2025 Team Status: Active Member Role Status Dates Dr. Eriberto Her MD Primary Care Provider Active Start: March 30, 2025 Dr. Jae Rainey MD Attending Provider Active Start: March 30, 2025 Dr. Jae Rainey MD Referring Provider Active Start: March 30, 2025 Team Status: Inactive Member Role Status Dates Dr. Eriberto Her MD Primary Care Provider Active Start: April 05, 2025 End: April 05, 2025 Dr. Eriberto Her MD Attending Provider Active Start: April 05, 2025 End: April 05, 2025 Dr. Eriberto Her MD Referring Provider Active Start: April 05, 2025 End: April 05, 2025 Team Status: Active Member Role Status Dates Dr. Eriberto Her MD Primary Care Provider Active Start: April 27, 2025 Dr. Jae Rainey MD Attending Provider Active Start: April 27, 2025 Dr. Jae Rainey MD Referring Provider Active Start: April 27, 2025 Team Status: Inactive Member Role Status Dates Dr. Eriberto Her MD Primary Care Provider Active Start: April 27, 2025 End: April 27, 2025 Dr. Eriberto Her MD Referring Provider Active Start: April 27, 2025 End: April 27, 2025 Mike KU PA Attending Provider Active Sta rt: April 27, 2025 End: April 27, 2025 (unrecognized sect ion and content) No Status Records FoundNo Status Records Found INFORMATION SOURCE (unrecogn ized section and content) DATE CREATED AUTHOR 01/02/2024 [facility] DATE CREATED AUTHOR AUTHOR'S ORGANIZ ATION 05/05/2025 [facility] FOR RECORDS PERTAINING TO PATIENTS WHO ARE OR HAVE BEEN ENROLLED IN A CHEMICAL DEPENDENCY/SUBSTANCEABUSE PROGRAM, SOME INFORMATION MAY BE OMITTED. This clinical summary was aggregated from multiple sources. Caution should be exercised in using it in the provision of clinical care. This summary normalizes information from multiple sources, and as a consequence, information in this document may materially change the coding, format and clinical context of patient data. In addition, data may be omitted in some cases. CLINICAL DECISIONS SHOULD BE BASED ON THE PRIMARY CLINICAL RECORDS. [employer] provides no warranty or guarantee of the accuracy or completeness of information in this document.
== END | disposition home or self-care (01) ==
LOC: RAD 09:59
PROVIDERS: PCP Family Medicine Geriatric Medicine; Referring Provider Family Medicine Geriatric Medicine; Visit Provider Family Medicine Geriatric Medicine
DX: L03.115 Cellulitis of right lower limb (principal); M25.571 Pain in right ankle and joints of right foot; M25.471 Effusion, right ankle
CPT/HCPCS: 36415; 73610; 80048; 85025; 85652; 86140

== ENCOUNTER 2025-05-19 07:30 | Outpatient (RCR) | payer MEDICARE, SELFPAY ==
--- NOTE | 2025-03-09 09:00 | HP.PTEVAL_ITS ---
Patient's Visit Information Visit Information Visit Information: TYRONE CARUSO is a 74 year old M referred to Physical Therapy by Dr. 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 Date of Evaluation: 03/09/25 Physical Therapist: Eric Weber DPT Visit Plan Frequency: 2x /Week Duration: 6 Weeks Plan: 1) slight progressive hip extension. Hip flexor stretching, prone prop. Progress to hip mobs 2) may use ice/stim to reduce symptoms 3) glute med/am strengthening 4) avoid hip flexor strengthening initially I gave him prone prop and standing hip flexor stretch for HEP today. Subjective Subjective: Pt. is here today for his initial evaluation with diagnosis DJD of L hip with dysplasia. Pt. reports pain starting all of a sudden ~6 weeks ago. Most of his symptoms are groin. Pt. has increased pain: twisting, bending, putting shoes on, getting in/out of car. He will have quick stabbing like pain with those activities. No N/T noted. Pt. weakness noted. Pt. does a lot of walking and has had to refrain from that. Pt. is hopeful to get back to all walking without issues. Pt. is retired. He did have some injections into his buttock from his physician. Surgeon did offer injections, and surgery as needed. Pain L groin: Pain Intensity (Out of 10): 5 Pain Intensity Range: 3 and 10 Objective Objective: POSTURE: Pt. has slight increased lateral lean to R side. Pt. tends to keep L hip in slight flexion. PALPATION: pt. has increased tenderness at L anterior hip, hip flexor complex. No greater trochanter pain. No gluteal pain. NEURO: Pt. has normal sensation and normal DTR of BLEs. Pt. is able to rise on heels and toes without issues. ROM: L hip: PROM: flexion 90deg increase NW, abd 30deg increase NW, IR 0deg increase NW, ER 65deg mild increase NW. ext 4deg increase NW. All pain felt at anterior hip. MMT: RLE: 5/5 throughout. LLE: ankle/knee 5/5 throughout. hip: flex 3/5 very painful, abd 4/5 increase NW, ext 4/5 increase NW, IR/ER 3/5 very painful. GAIT: pt. ambulates with marked antalgic pattern. Difficulty with advancing LLE and limited hip extension. Special Tests L Hip Scour: Positive L Hip FADDIR - Labrum: Positive L Hip Impingement Provocation - Labrum: Positive Balance/Special Test Scores Lower Extremity Functional Score: 18 Goals Goal 1:: LTG: Pt. to be I with HEP. Goal Time Frame: 4-6 Weeks Goal 2:: STG: Pt. to have increased L hip ROM by 10deg in all ranges. Goal Time Frame: 2 Weeks Goal 3:: LTG: Pt. to have full L hip ROM without increase in symptoms. Goal Time Frame: 6-8 Weeks Goal 4:: LTG: pt. to have normal gait pattern without increase in symptoms. Goal Time Frame: 6-8 Weeks Goal 5:: LTG: Pt. to have 5/5 strength throughout LLE. Goal Time Frame: 6-8 Weeks Rehabilitation Potential Physical Therapy Diagnosis: Pt. 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 Pt. has marked hypomobility, weakness and increased pain. Pt. would benefit from PT to address the above limitations progressing back to all previous activities. Rehabilitation Potential: Good Anticipated Interventions Patient/Client Instruction: Educate patient on: Condition, Plan of Care, Risk Factors and Benefits of Fitness Program For the Purpose of:: To facilitate caregiver knowledge, To improve self management, To prevent re-injury, To improve ability to perform tasks related to life management and To improve tolerance to ADL's Therapeutic Exercise to Include: Strength training, Power training, Endurance training, Gait and locomotor training, Passive ROM and Active ROM For the Purpose of:: To decrease pain, To decrease swelling/inflammation and To increase ROM Manual Therapy Techniques to Include: Mobilization For the Purpose of:: To decrease pain, To decrease swelling/inflammation and To increase ROM IF ES: Yes Other electric stimulation: Yes Cryotherapy (ice pack, ice massage): Yes For the Purpose of:: To decrease pain, To decrease swelling/inflammation and To increase ROM Text: Thank you for the opportunity to evaluate your patient. For Medicare and Medicare HMO plans, please review the plan of care and approve it. It will need to be FAXED BACK to us at [phone] for Medicare purposes. For Medicare only, by signing this I certify the plan of care. Please let me know if there are questions or concerns regarding this plan of care. Physician Signature: Date:
--- NOTE | 2025-03-30 08:49 | HP.PTREVAL ---
Re-Evaluation Intro: Dr. 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 Please see the progress note below for an update on the physical therapy plan of care! Subjective Subjective: Pt. reports doing better. Pt. is still having some stiffness with his ROM. Pt. reports being able to walk longer distance. He still has some issues, but is tolerating walking and activities better. Objective Objective/Function: MMT: L hip: flex: 23.4#, abd 27.2# R hip: flex 51.1#, abd 51.3# ROM: L hip: good HS length, ER 60deg increase NW, IR 10deg increase NW, ext 5deg tightness, flexion 100deg increase NW. GAIT: Pt. still has decreased R step length secondary to lack of L hip extension. This did improve with stretching and hip mobs into extension STAIRS: Pt. is able to complete, but reports having put more effort during L stance phase, which was obviously more difficult with his trials. I would like to increase his L hip extension, ER, IR ROM allowing for increased tolerance to all functional mobility. Plan Plan Plan: I am asking more 5-6 more visits to progress into hip extension ROM and progress to gym related program to increase his L hip strength allowing for increased tolerance with all walking and functional mobility. Balance/Gait/Functional tests Balance/Special Test Scores Lower Extremity Functional Score: 34 Goals Goals Goal 1:: LTG: Pt. to be I with HEP. Goal Time Frame: 4-6 Weeks Goal Progress: Progressing Goal 2:: STG: Pt. to have increased L hip ROM by 10deg in all ranges. Goal Time Frame: 2 Weeks Goal Progress: Progressing Goal 3:: LTG: Pt. to have full L hip ROM without increase in symptoms. Goal Time Frame: 6-8 Weeks Goal Progress: Progressing Goal 4:: LTG: pt. to have normal gait pattern without increase in symptoms. Goal Time Frame: 6-8 Weeks Goal Progress: Progressing Goal 5:: LTG: Pt. to have 5/5 strength throughout LLE. Goal Time Frame: 6-8 Weeks Goal Progress: Progressing Anticipated Interventions Anticipated Interventions Patient/Client Instruction: Educate patient on: Condition, Plan of Care, Risk Factors and Benefits of Fitness Program For the Purpose of:: To facilitate caregiver knowledge, To improve self management, To prevent re-injury, To improve ability to perform tasks related to life management and To improve tolerance to ADL's Therapeutic Exercise to Include: Strength training, Power training, Endurance training, Gait and locomotor training, Passive ROM and Active ROM For the Purpose of:: To decrease pain, To decrease swelling/inflammation and To increase ROM Manual Therapy Techniques to Include: Mobilization For the Purpose of:: To decrease pain, To decrease swelling/inflammation and To increase ROM IF ES: Yes Other electric stimulation: Yes Cryotherapy (ice pack, ice massage): Yes For the Purpose of:: To decrease pain, To decrease swelling/inflammation and To increase ROM Re-Evaluation Ending Re-evaluation ending: Please do not hesitate to contact me at [phone] by phone or if you have questions or concerns regarding this new plan of care! Sincerely, Eric Weber DPT
--- NOTE | 2025-05-19 08:15 | HP.PTDCSUM ---
Discharge Summary D/C summary: It has been my pleasure to treat TYRONE CARUSO referred by Dr. 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 Discharge Date: 05/19/25 Please see the following information for a summary of their discharge status. Subjective Subjective: Pt. reports being much better. I feel real good. He is HEP compliant. Pt. reports being 95% better overall. Pain L groin: Pain Intensity (Out of 10): 0 Overall Improvement % Improvement: 95 Objective Objective/Function: Pt. plans on continuing with gym exercises and reduce some of the distance with his walking. He reports overall minmal pain. He is I with gym exercises as this point intime. MMT: 5/5 throughout. L hip: flexion 120deg mild increase NW, abd 40deg NE, ER 50deg tightness, IR 19deg mild increase NW, ext 10deg. GAIT: fairly normal pattern noted. Pt. to be DC to HEP at this point in time. Goals Goal 1:: LTG: Pt. to be I with HEP. Goal Progress: Goal Met Goal 2:: STG: Pt. to have increased L hip ROM by 10deg in all ranges. Goal Progress: Goal Met Goal 3:: LTG: Pt. to have full L hip ROM without increase in symptoms. Goal Progress: Goal Met Goal 4:: LTG: pt. to have normal gait pattern without increase in symptoms. Goal Progress: Goal Met Goal 5:: LTG: Pt. to have 5/5 strength throughout LLE. Goal Progress: Goal Met Plan Plan: DC to HEP. D/C Information d/c sentence: If there are questions or concerns regarding this patient's physical therapy, please feel free to call me at [phone]. Thank you for the referral of this patient. Sincerely, Eric Santos Sipos, DPT Balance/Gait/Functional tests Balance/Special Test Scores Lower Extremity Functional Score: 68 Improvement % Improvement: 95
== END 2025-05-19 19:00 | disposition home or self-care (01) ==
LOC: PT 07:30
PROVIDERS: PCP Family Medicine Geriatric Medicine; Referring Provider Orthopaedic Surgery; Visit Provider Orthopaedic Surgery
DX: M16.32 Unilateral osteoarthritis resulting from hip dysplasia, left hip (principal)
CPT/HCPCS: 97110; 97140; 97161; 97530

== ENCOUNTER → 2025-10-31 | Outpatient (CLI) | payer MEDICARE, SELFPAY ==
[2025-10-31 12:20] LABS: Hematocrit 42.9 % (40-54); Hemoglobin 15.1 g/dL (13.0-16.5); Mean Corp Hgb Conc 35.2 g/dL (32-36); Mean Corpuscular Volume 89.4 fL (80-94); Mean Platelet Vol. 9.4 fl (6.2-12.0); Platelet Count 324 K/mm3 (150-450); RBC Distribution Width CV 12.5 % (11.6-14.6); RBC Distribution Width SD 41.4 fl (35.1-43.9); Red Blood Count 4.80 M/mm3 (4.6-6.2); White Blood Count 11.6 K/mm3 (4.4-11.0)
[2025-10-31 13:01] LABS: AST(SGOT) 20 U/L (<=37); Alanine Aminotransfer ALT/SGPT 22 U/L (<=46); Albumin, Serum 4.0 g/dL (3.4-4.8); Alkaline Phosphatase 57 U/L (40-129); Anion Gap 13 (5-15); BUN 17 mg/dL (4-19); BUN/Creat Ratio 16.3 RATIO (10-20); Calcium,Total 9.5 mg/dL (7.6-11.0); Carbon Dioxide 25.0 mmol/L (21.0-32.0); Chloride 102 mmol/L (98-108); Cholesterol 149 mg/dL (<=200); Globulin 3.3 g/dL (2.2-4.2); Glucose 109 mg/dL (70-99); Low Density Lipoprotein Calc. 87 mg/dL; PSA,Total - Annual Screen 16.20 ng/mL (0.02-4.00); Potassium 4.0 mmol/L (3.3-5.1); Triglycerides 79 mg/dL; Very Low Density Lipoprotein 16 mg/dL (5-40); cholesterol:hdl ratio screen 3.18
== END | disposition home or self-care (01) ==
LOC: MTLAB 10:37
PROVIDERS: PCP Family Medicine; Visit Provider Family Medicine
DX: I10 Essential (primary) hypertension (principal); Z86.79 Personal history of other diseases of the circulatory system; Z12.5 Encounter for screening for malignant neoplasm of prostate
CPT/HCPCS: 36415; 80053; 80061; 84153; 84443; 85027; G0103

== ENCOUNTER → 2025-11-15 | Outpatient (CLI) | payer MEDICARE, SELFPAY ==
--- NOTE | 2025-11-15 13:30 | ECHOCS_ITS ---
Reason For Study Reason For Study: Dyspnea/SOB Procedure This was a 2D Doppler, Color Flow transthoracic echocardiogram. The study was technically difficult. Contrast injection was performed. Exam performed in department. Left Ventricle Normal LV size. Mild concentric left ventricular hypertrophy. Posterior, inferior and septal hypokinesis. Estimated LVEF 40%. At least stage I diastolic dysfunction. Right Ventricle Normal RV size. Moderate global right ventricular systolic dysfunction. Atria The left atrium is mildly enlarged. The right atrium is not well visualized. Mitral Valve Trivial mitral valve insufficiency. Tricuspid Valve Trivial tricuspid valve insufficiency. Unable to estimate RV systolic pressure due to insufficient tricuspid regurgitant envelope. Aortic Valve Trisinus/trileaflet aortic valve. Pulmonic Valve The pulmonic valve is not well visualized. Great Vessels Mildly dilated aortic root. Pericardium/Pleural No pericardial effusion. Medication 22 gauge I.V. with prn adaptor inserted into right arm. Diluted definity 3ml given slow IV push to enhance endocardial definition. MMode/2D Measurements & Calculations LVIDd: 4.7 cm IVSd: 1.6 cm Ao root diam: 4.2 cm LVIDs: 3.1 cm LVPWd: 1.2 cm FS: 32.3 % LAV(MOD-bp): 41.5 ml LVAd ap4: 36.6 cm2 SV(MOD-sp4): 63.5 ml LAV(MOD-bp) Indexed: 18.5 ml/m2 LVLd ap4: 8.5 cm SI(MOD-sp4): 28.3 ml/m2 LAV(MOD-sp2): 42.5 ml EDV(MOD-sp4): 129.1 ml LAV(MOD-sp4): 39.3 ml EDV(sp4-el): 133.2 ml LVAs ap4: 23.0 cm2 LVLs ap4: 6.8 cm ESV(MOD-sp4): 65.6 ml ESV(sp4-el): 66.7 ml EF(MOD-sp4): 49.2 % EF(sp4-el): 50.0 % SV(sp4-el): 66.5 ml Ao sinus diam: 3.8 cm LA A4 area: 15.5 cm2 LA dimension(2D): 4.3 cm RA A4 area: 11.1 cm2 Doppler Measurements & Calculations MV E max veronica: 99.2 cm/sec MV V2 max: 113.6 cm/sec Ao V2 max: 101.9 cm/sec MV max P.2 mmHg Ao max P.2 mmHg MV V2 mean: 57.8 cm/sec Ao V2 mean: 77.5 cm/sec MV mean P.8 mmHg Ao mean P.7 mmHg MV V2 VTI: 13.7 cm Ao V2 VTI: 15.0 cm LV V1 max: 79.3 cm/sec PA V2 max: 89.6 cm/sec LV V1 max P.5 mmHg ECHO/Echo Complete W/ Contrast Interpretation Summary Mild concentric left ventricular hypertrophy. Posterior, inferior and septal hypokinesis. Estimated LVEF 40%. At least stage I diastolic dysfunction. Moderate global right ventricular systolic dysfunction. The left atrium is mildly enlarged. Mildly dilated aortic root. The study was technically difficult. Ordering Physician: Riki Batista Referring Physician: Riki Batista Performed By: Jude Juarez RCS
== END | disposition home or self-care (01) ==
LOC: CVS 13:27
PROVIDERS: PCP Family Medicine; Referring Provider Internal Medicine Cardiovascular Disease; Visit Provider Internal Medicine Cardiovascular Disease
DX: R06.02 Shortness of breath (principal)
CPT/HCPCS: 93306; Q9957; A4216; C8929

== ENCOUNTER 2025-11-22 06:17 | Emergency (ER) | payer MEDICARE, SELFPAY ==
[2025-11-22 06:18] VITALS: BP 148/73; PULSE 77; RESP 20; TEMP 36.7; O2SAT 98; BMI 31.0
--- NOTE | 2025-11-22 06:38 | CT_ITS ---
PROCEDURE: CTA ABD W/RUNOFF W/WO CONTRAST 11/22/2025 REASON FOR EXAM: PAD B/L LE TECHNIQUE: Procedure Code: [id number] Modality: CT Procedure: CTA ABD W/RUNOFF W/WO CONTRAST Multiplanar Sagittal and Coronal images were obtained. 3D and or MIPS post processing was performed CONTRAST: Isovue 370 VOLUME: 87 mL One or more dose reduction techniques were used (e.g., Automated exposure control, adjustment of the mA and/or kV according to patient size, use of iterative reconstruction technique). RADIATION DOSE SUMMARY: CTDlvol: 14.25+ 8.83+ 4.32 mGy DLP: 1692.1 mGycm COMPARISON: None. FINDINGS: Aorta: Abdominal aorta is normal in size. No significant atherosclerotic plaque. No evidence of aneurysm or dissection. Iliac Arteries: Iliac arteries are normal in size with no significant plaque or stenosis. Celiac: Normal. SMA: Normal. MINAL : Normal. Right Renal: Normal without significant stenosis. Left Renal: Normal without significant stenosis. Runoff through the common iliac arteries demonstrates adequate contrast opacification bilaterally. Right: Common femoral artery, superficial femoral artery, popliteal artery, posterior tibial artery, anterior tibial artery, and peroneal arteries are well opacified to the level of the dorsalis pedis artery. Left: Common femoral, superficial femoral, and popliteal artery is well opacified. The distal popliteal artery as well as the tibial trifurcation demonstrates poor opacification without reconstitution of flow distally suggesting very slow flow or thrombus. Extravascular Findings: Hepatic steatosis. The gallbladder, adrenals, and spleen are normal. The pancreatic tail is blunted suggesting normal variant versus prior resection. Mild colonic stool burden with sigmoid colonic diverticula. Normal appendix. Senescent perinephric stranding bilaterally with partially exophytic simple 3 point 3 cm left renal cyst. No abdominopelvic lymphadenopathy or ascites. Fat containing [id number]-right inguinal hernias. Degenerative changes of the thoracolumbar spine without suspicious lytic or blastic lesion. CT/CTA Abd w/Runoff W/WO Contrast IMPRESSION: 1. Very slow flow versus subacute/occlusion of the distal left popliteal arter y with no flow appreciated to the level of the dorsalis pedis artery. 2. Diverticulosis. 3. Fat containing inguinal hernias. Red Alert: Extremely slow flow versus complete occlusion of the distal left pop liteal vein that extends distally to the foot. Slow flow versus complete occlusion could be confirmed or excluded with a vascu lar ultrasound if desired. The critical findings in the findings and impression above were relayed directl y by me by telephone to the emergency department physician on 11/22/2025 at 7:52 am with readback verification. Reading Location: [id number]
[2025-11-22 06:58] LABS: Hematocrit 36.8 % (40-54); Hemoglobin 13.1 g/dL (13.0-16.5); Immature Granulocytes Count 0.020 X10^3/uL (0.0-0.0); Mean Corp Hgb Conc 35.6 g/dL (32-36); Mean Corpuscular Volume 87.4 fL (80-94); Mean Platelet Vol. 8.8 fl (6.2-12.0); NRBC Flagged by Analyzer 0 % (0-5); Platelet Count 340 K/mm3 (150-450); RBC Distribution Width CV 12.2 % (11.6-14.6); RBC Distribution Width SD 38.9 fl (35.1-43.9); Red Blood Count 4.21 M/mm3 (4.6-6.2); White Blood Count 12.7 K/mm3 (4.4-11.0)
--- NOTE | 2025-11-22 07:02 | RAD_ITS ---
PROCEDURE: CHEST 1 VIEW (PORTABLE) 11/22/2025 REASON FOR EXAM: DYSPNEA TECHNIQUE: Frontal view of the chest. COMPARISON: None. FINDINGS: The lungs are adequately aerated bilaterally without pleural effusion, pneumothorax, or focal airspace disease. Mild central hilar vascular fullness. Atheromatous changes of the aorta with borderline cardiomegaly. Osseous structures are age-appropriate. RAD/Chest 1 View (Portable) IMPRESSION: Borderline cardiomegaly with central vascular congestion. Reading Location: [id number]
--- OUTSIDE RECORDS SUMMARY | 2025-11-22 07:02 | XMS RPT_ITS | CCD ---
Author Organization [facility] [place] Care Team Providers Care Director Of Neurology Name Role Phone Unavailable Primary Care Provider Unavailabl e SELF Referring Unavailable NATHALY RODRIGEZ Attending Unavailable PADMINI PARRA Attending Unavailable Unavailable Primary Care Provider Unavailmauri e Arden LÓPEZ, Dr. Eriberto Clay Primary Care Provider [phone] Arden LÓPEZ, Dr. Eriberto Clay Attending Provider Arden LÓPEZ, Dr. Eriberto Clay Referring Provider Mike Jaime Attending Provider Redd LÓPEZ, Dr. Jae Johnson Attending Provider [phone] Redd LÓPEZ, Dr. Jae Johnson Referring Provider [phone] Redd LÓPEZ, Dr. Jae Johnson Attending Provider [phone] Redd LÓPEZ, Dr. Jae Johnson Referring Provider Redd LÓPEZ, Dr. Jae Johnson Attending Provider [phone] Redd LÓPEZ, Dr. Jae Johnson Referring Provider Redd LÓPEZ, Dr. Jae Johnson Attending Provider Redd LÓPEZ, Dr. Jae Johnson Referring Provider [phone] Arden, Eriberto Chi Referring Unavailable Arden, Eriberto Chi Primary Care Unavailable Mike Jaime Attending Unavailable Arden, Eriberto Chi Primary Care Unavailable Mike Jaime Attending Unavailable Arden, Eriberto Chi Referring Unavailable Arden, Eriberto Chi Primary Care Unavailable Jae Rainey Attending Unavailable Jae Rainey Referring Unavailable Arden, Eriberto Chi Referring Unavailable Arden, Eriberto Chi Primary Care Unavailable Arden, Eriberto Chi Attending Unavailable Arden, Eriberto Chi Primary Care Unavailable Arden, Eriberto Chi Attending Unavailable Arden, Eriberto Chi Referring Unavailable Arden, Eriberto Chi Referring Unavailable Arden, Eriberto Chi Primary Care Unavailable Eriberto Her Chi Attending Unavailable Medications Current Medications Medication Drug Class(es) [...] humidity, tubing, lifetime supplies. 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 Ipratropium [place] 21 mcg (0.03 %) spray,non-aerosol (4 sources) Start: 025 Ipratropium [place] 21 mcg (0.03 %) spray,non-aerosol Active 2 NMA INTRANASAL 2 to 3 times per day as needed for postnasal drainage March 03, 2025 12:00am administer into each nostril valsartan 40 mg oral tablet (8 sources) Angiotensin 2 Receptor Jeannie Start: 022 take 1 tablet by mouth twice daily Valsartan 40 mg tablet Active 40 mg PO TWICE A DAY April 25, 2022 12:00am Completed/Discontinued Medications Medication Drug Class(es) Dates Sig (Normalized) Sig (Original) azithromycin 250 mg oral tablet (4 sources) Macrolide Antimicrobial Start: 03-03-2025 End: 04-27-2025 take 2-5 tablets by mouth once daily Azithromycin 250 mg tablet Discontinued 0 PO .COMPLEX March 03, 2025 12:00am April 27, 2025 8:17am take 500 mg today (day 1), then 250 mg for 4 days (days 2-5) PO benzonatate 200 mg oral capsule (5 sources) Non-narcotic Antitussive Start: 09-16-2024 End: 03-03-2025 take 1 capsule by mouth three times daily as needed for cough Benzonatate 200 mg capsule Discontinued 200 mg PO THREE TIMES A DAY as needed for cough September 16, 2024 12:00am March 03, 2025 4:06pm cephalexin 500 mg oral capsule (2 sources) Cephalosporin Antibacterial Start: 04-27-2025 End: 05-07-2025 take 1 capsule by mouth every twelve hours Cephalexin 500 mg capsule Discontinued 500 mg PO Q12H 18 09April 27, 2025 12:00am May 06, 2025 12:00am May 07, 2025 12:08am cholecalciferol 1.25 mg oral capsule (7 sources) Vitamin D Start: 04-24-2022 End: 07-11-2022 take 1 capsule by mouth every week cholecalciferol, Vitamin D3, (VITAMIN D3) 1,250 mcg (50,000 unit) cap capsule Take 1 capsule by mouth one time a week. 4 capsule 0 07/11/2022 Active Comment on above: Take 1 capsule by mo [facility] one time a week. citalopram 10 mg [...] heated tubing (JUSTUS), lifetime supplies. 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 cyclobenzaprine hydrochloride 10 mg oral tablet (2 sources) Muscle Relaxant Start: 2024 End: 2024 take 1 tablet by mouth three times daily as needed for muscle spasms Cyclobenzaprine 10 mg tablet Discontinued 10 mg PO THREE TIMES A DAY as needed for muscle spasm 18 04April 27, 2025 12:00am May 01, 2025 12:00am April 27, 2025 8:41am hydroCHLOROthiazide 12.5 mg / valsartan 160 mg oral tablet (8 sources) Thiazide Diuretic, Angiotensin 2 Receptor Jeannie Start: 2020 Valsartan-hydroCHLOROth iazide 160-12.5 mg per tablet methylPREDNISolone 4 mg oral tablet (11 sources) Corticosteroid Start: 2024 End: 2024 take 1 tablet by mouth once Methylprednisolone (Medrol (Ahmet)) 4 mg tablets,dose pack Discontinued 4 mg PO per package directions 20 05April 27, 2025 12:00am May 02, 2025 12:00am April 27, 2025 8:41am Start: 09-16-2024 End: 03-09-2025 take 1 tablet by mouth once Methylprednisolone (Medrol (Ahmet)) 4 mg tablets,dose pack Discontinued 4 mg PO per package directions 20 05March 03, 2025 12:00am March 08, 2025 12:00am March 09, 2025 12:11am Problems Active Problems Problem Classification Problem Date Documented Date Episodic/Chronic Acute bronchitis (9 sources) Acute bronchitis; Translations: [Acute bronchitis, unspecified] 09-16-2024 Episodic Cardiac dysrhythmias (4 sources) Atrial fibrillation; Translations: [Unspecified atrial fibrillation] 04-27-2025 Chronic Essential hypertension (1 source) Essential (primary) hypertension; Translations: [Essential (primary) hypertension] Onset: 04-10-2025 Chronic Genitourinary symptoms and ill-defined conditions (1 source) Nocturia; Translations: [Nocturia] Episodic Immunizations and screening for infectious disease (16 sources) Patient encounter status; Translations: [Encounter for screening for COVID-19] 04-25-2022 Episodic Malaise and fatigue (1 source) Fatigue; Translations: [Other fatigue] Episodic Nutritional deficiencies (1 source) Vitamin D deficiency; Translations: [Vitamin D deficiency, unspecified] Chronic Osteoarthritis (1 source) 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, left hip; Translations: [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, left hip] Onset: 10-05-2025 Chronic Other connective tissue disease (1 source) Pain in left foot; Translations: [Pain in left foot] 07-22-2021 Episodic Other ear and sense organ disorders (5 sources) Impacted cerumen; Translations: [Impacted cerumen, right [...] Translations: [Low back pain, unspecified] Onset: 02-25-2025 Past or Other Problems Problem Classification Problem Date Documented Da te Episodic/Chronic Skin and subcutaneous tissue infections (5 sources) Cellulitis of right ankle; Translations: [Cellulitis of right lower limb] Onset: 05-12-2025 04-27-2025 Episodic Results Test Name Value Interpretation Reference Range Facility PT D/C Summary (1)on 025 PT D/C Summary (1) [facility] [address] [place] [address] [address] [place] [address] / REHABILITATION SERVICES DISCHARGE SUMMARY MR#: [id number] Acct: [id number] Name: TYRONE AGUILAR Rep #: [id number] : 1950 74 From: Eric Weber DPT Referring Dr.: Dr. Jae Rainey MD Status: REG RCR Insurance: [facility] [id number] SELF PAY INSURANCE Discharge Summary D/C summary: It has been my pleasure to treat TYRONE AGUILAR referred by Dr. 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 Discharge Date: 05/19/25 Please see the following information for a summary of their discharge status. Subjective Subjective: Pt. reports being much better. I feel real good. He is HEP compliant. Pt. reports being 95% better overall. Pain L groin: Pain Intensity (Out of 10): 0 Overall Improvement % Improvement: 95 Objective Objective/Function: Pt. plans on continuing with gym exercises and reduce some of the distance with his walking. He reports overall minmal pain. He is I with gym exercises as this point intime. MMT: 5/5 throughout. L hip: flexion 120deg mild increase NW, abd 40deg NE, ER 50deg tightness, IR 19deg mild increase NW, ext 10deg. GAIT: fairly normal pattern noted. Pt. to be DC to HEP at this point in time. Goals Goal 1:: LTG: Pt. to be I with HEP. Goal Progress: Goal Met Goal 2:: STG: Pt. to have increased L hip ROM by 10deg in all ranges. Goal Progress: Goal Met Goal 3:: LTG: Pt. to have full L hip ROM without increase in symptoms. Goal Progress: Goal Met Goal 4:: LTG: pt. to have normal gait pattern without increase in symptoms. Goal Progress: Goal Met Goal 5:: LTG: Pt. to have 5/5 strength throughout LLE. Goal Progress: Goal Met Plan Plan: DC to HEP. D/C Information d/c sentence: If there are questions or concerns regarding this patient's physical therapy, please feel free to call me at [phone]. Thank you for the referral of this patient. Sincerely, Eric Santos Sipos, DPT Balance/Gait/Functi onal tests Balance/Special Test Scores Lower Extremity Functional Score: 68 Improvement % Improvement: 95 05/19/25 0815 CC: Dr. Jae Rainey MD; Dr. Eriberto Her MD CLS Signed Normal [facility] Absolute lymphocyte countOrd ered By: Eriberto Her on 05-08-2025 Lymphocytes Auto (Unsp spec) [#/Vol] 1.82 10*3/uL 0.83-4.51 [facility] Absolute neutrophil countOrd ered By: Eriberto Her on 05-08-2025 Neutrophils (Bld) [#/Vol] 7.4 10*3/uL 2.0-7.7 [facility] Anion gap in Serum or Plasma Ordered By: Eriberto Her on 05-08-2025 Anion gap [Moles/Vol] 11 mmol/L 04-13 [facility] Ankle min 3 Viewson 05-08-20 Ankle min 3 Views [facility] Imaging Services [address] [place], [place] [address] Ankle min 3 Views MR#: [id number] Acct: [id number] Name: TYRONE AGUILAR Rep #: [id number] : 1950 M 74 From: Eugenio Garcia MD PCP: Dr. Eribetro Her MD Status: REG CLI Study: Ankle min 3 Views Date of Exam: 05/08/25 Exam# [id number] Ordering Dr: Eriberto Her MD PROCEDURE: ANKLE MIN 3 VIEWS 05/08/2025 REASON FOR EXAM: PAIN IN RIGHT ANKLE AND SWELLING TECHNIQUE: Three views of the right ankle were obtained. COMPARISON: None. FINDINGS: There is no evidence of fracture or dislocation. There are no significant joint space abnormalities. There is a large plantar spur. The periarticular soft tissues are normal. RAD/Ankle min 3 Views IMPRESSION: Normal right ankle. Heel spur. Reading Location: [place] [address] CC: Dr. Eriberto Her MD Social Insurance Analyst: Signed Normal [facility] Automated lymphocyte count a s percentage of total leukocytesOrdered By: Eriberto Her on 05-08-2025 Lymphocytes/100 WBC Auto (Unsp spec) 17.5 % Low 19-41 [facility] BUN/creatinine ratioOrdered By: Eriberto Her on 05-08-2025 Urea nitrogen/Creatinine [Mass ratio] 19.1 mg/mg 10-20 [facility] Basic Metabolic Profile (BMP )on 05-08-2025 BUN/CRE 19.1 RATIO Normal 10-20 [facility] Comment on above: Performed By: #### L 500.2500, L501.6710, L101.9900, L100.0100 ####[facility] [address] [place], [address] Calcium [Mass/Vol] 9.6 mg/dL Normal 7.6-11.0 [facility] Comment on above: Performed By: #### L 500.2500, L501.6710, L101.9900, L100.0100 ####[facility] [address] [place], [address] Chloride [Moles/Vol] 101 mmol/L Normal 98-108 [facility] Comment on above: Performed By: #### L 500.2500, L501.6710, L101.9900, L100.0100 ####[facility] [address] [place], [address] CO2 [Moles/Vol] 28.4 mmol/L Normal 21.0-32.0 [facility] Comment on above: Performed By: #### L 500.2500, L501.6710, L101.9900, L100.0100 ####[facility] [address] [place], [address] Creatinine [Mass/Vol] 1.06 mg/dL Normal 0.70-1.20 [facility] Comment on above: Performed By: #### L 500.2500, L501.6710, L101.9900, L100.0100 ####[facility] [address] [place], [address] GAP 11 Normal 5-15 [facility] Comment on above: Performed By: #### L 500.2500, L501.6710, L101.9900, L100.0100 ####[facility] [address] [place], [address] GFR/1.73 sq M.predicted among non-blacks MDRD (S/P/Bld) [Vol rate/Area] 73 mL/min/{1.73_m2} Normal >60 [facility] Comment on above: Result Comment: mL/m in/1.73m2 CKD-EPI Creatinine Equation (2020) Performed By: #### L 500.2500, L501.6710, L101.9900, L100.0100 ####[facility] [address] [place], [address] Glucose [Mass/Vol] 98 mg/dL Normal 70-99 [facility] Comment on above: Performed By: #### L 500.2500, L501.6710, L101.9900, L100.0100 ####[facility] [address] [place], [address] Potassium [Moles/Vol] 3.7 mmol/L Normal 3.3-5.1 [facility] Comment on above: Performed By: #### L 500.2500, L501.6710, L101.9900, L100.0100 ####[facility] [address] [place], [address] Sodium [Moles/Vol] 140 mmol/L Normal 133-145 [facility] Comment on above: Performed By: #### L 500.2500, L501.6710, L101.9900, L100.0100 ####[facility] [address] [place], [address] Urea nitrogen [Mass/Vol] 20 mg/dL High 4-19 [facility] Comment on above: Performed By: #### L 500.2500, L501.6710, L101.9900, L100.0100 ####[facility] [address] [place], [address] Basophil percentageOrdered B y: Eriberto Her on 05-08-2025 Basophils/100 WBC (Bld) 0.6 % 0-[address] [facility] CBC W/Diff, Automatedon Absolute Lymph 1.82 X10 3/uL Normal 0.83-4.51 [facility] Comment on above: Performed By: #### L 500.2500, L501.6710, L101.9900, L100.0100 ####[facility] [address] [place], [address] Absolute Neut 7.4 X10 3/uL Normal 2.0-7.7 [facility] Comment on above: Performed By: #### L 500.2500, L501.6710, L101.9900, L100.0100 ####[facility] [address] [place], [address] Basophils/100 WBC (Bld) 0.6 % Normal 0-[address] [facility] Comment on above: Performed By: #### L 500.2500, L501.6710, L101.9900, L100.0100 ####[facility] [address] [place], [address] Eosinophils/100 WBC (Bld) 1.4 % Normal 0-5 [facility] Comment on above: Performed By: #### L 500.2500, L501.6710, L101.9900, L100.0100 ####[facility] [address] [place], [address] Erythrocyte distribution width (RBC) [Ratio] 13.6 % Normal 11.6-14.6 [facility] Comment on above: Performed By: #### L 500.2500, L501.6710, L101.9900, L100.0100 ####[facility] [address] [place], [address] Hematocrit (Bld) [Volume fraction] 44.8 % Normal 40-54 [facility] Comment on above: Performed By: #### L 500.2500, L501.6710, L101.9900, L100.0100 ####[facility] [address] [place], [address] Hemoglobin (Bld) [Mass/Vol] 15.5 g/dL Normal 13.0-16.5 [facility] Comment on above: Performed By: #### L 500.2500, L501.6710, L101.9900, L100.0100 ####[facility] [address] [place], [address] IG% 0.300 Normal 0.0-0.9 [facility] Comment on above: Result Comment: IG% - Immature Granulocytes (promyelocytes, myelocytes and metamyelocytes) > 1% indicates that a LEFT SHIFT is Present. Performed By: #### L 500.2500, L501.6710, L101.9900, L100.0100 ####[facility] [address] [place], [address] Lymphocytes/100 WBC (Bld) 17.5 % Low 19-41 [facility] Comment on above: Performed By: #### L 500.2500, L501.6710, L101.9900, L100.0100 ####[facility] [address] [place], [address] MCH (RBC) [Entitic mass] 31.4 pg Normal 27.0-32.0 [facility] Comment on above: Performed By: #### L 500.2500, L501.6710, L101.9900, L100.0100 ####[facility] [address] [place], [address] MCHC (RBC) [Mass/Vol] 34.6 g/dL Normal 32-36 [facility] Comment on above: Performed By: #### L 500.2500, L501.6710, L101.9900, L100.0100 ####[facility] [address] [place], [address] MCV (RBC) [Entitic vol] 90.9 fL Normal 80-[address] [facility] Comment on above: Performed By: #### L 500.2500, L501.6710, L101.9900, L100.0100 ####[facility] [address] [place], [address] Monocytes/100 WBC (Bld) 8.9 % Normal 0-[address] [facility] Comment on above: Performed By: #### L 500.2500, L501.6710, L101.9900, L100.0100 ####[facility] [address] [place], [address] Neutrophils/100 WBC (Bld) 71.3 % High 47-70 [facility] Comment on above: Performed By: #### L 500.2500, L501.6710, L101.9900, L100.0100 ####[facility] [address] [place], [address] Nucleated RBC (Bld) [#/Vol] 0 10*3/uL Normal 0-5 [facility] Comment on above: Performed By: #### L 500.2500, L501.6710, L101.9900, L100.0100 ####[facility] [address] [place], [address] Platelet mean volume (Bld) [Entitic vol] 9.1 fL Normal 6.2-12.0 [facility] Comment on above: Performed By: #### L 500.2500, L501.6710, L101.9900, L100.0100 ####[facility] [address] [place], [address] Platelets (Bld) [#/Vol] 318 10*3/uL Normal 150-450 [facility] Comment on above: Performed By: #### L 500.2500, L501.6710, L101.9900, L100.0100 ####[facility] [address] [place], [address] RBC (Bld) [#/Vol] 4.93 10*6/uL Normal 4.6-6.2 [facility] Comment on above: Performed By: #### L 500.2500, L501.6710, L101.9900, L100.0100 ####[facility] [address] [place], [address] RDW SD 45.5 fl High 35.1-43.9 [facility] Comment on above: Performed By: #### L 500.2500, L501.6710, L101.9900, L100.0100 ####[facility] [address] [place], [address] WBC (Bld) [#/Vol] 10.4 10*3/uL Normal 4.4-11.0 [facility] Comment on above: Performed By: #### L 500.2500, L501.6710, L101.9900, L100.0100 ####[facility] [address] [place], [address] CRPon 05-08-2025 C-REACTIVE PROT 21.00 mg/L High 0.0-3.0 [facility] Comment on above: Performed By: #### L 500.2500, L501.6710, L101.9900, L100.0100 ####[facility] [address] [place], [address] Carbon dioxide, total [Moles /volume] in Central venous bloodOrdered By: Eriberto Her on 05-08-2025 CO2 [Moles/Vol] 28.4 mmol/L 21.0-32.0 [facility] Chloride assayOrdered By: Denilson Her on 05-08-2025 Chloride [Moles/Vol] 101 mmol/L 98-108 [facility] Eosinophil percentageOrdered By: Eriberto Her on 05-08-2025 Eosinophils/100 WBC (Bld) 1.4 % 0-5 [facility] Erythrocyte Sed Rateon 05-08 SED RATE 16 mm/hr Normal 0-20 [facility] Comment on above: Performed By: #### L 500.2500, L501.6710, L101.9900, L100.0100 #### [facility] [address] [place], [address] Erythrocyte distribution wid th ratioOrdered By: [facility] Arden on 05-08-2025 Erythrocyte distribution width (RBC) [Ratio] 13.6 % 11.6-14.6 [facility] Erythrocyte distribution wid th standard deviationOrdered By: Eriberto Her on 05-08-2025 Erythrocyte distribution width (RBC) [Ratio] 45.5 fl High 35.1-43.9 [facility] Erythrocyte sedimentation ra teOrdered By: Eriberto Her on 05-08-2025 ESR (Bld) [Velocity] 16 mm/h 0- [facility] Glomerular filtration rate ( GFR) estimation/1.73 sq m using serum, plasma, or whole bOrdered By: Eriberto Her on 05-08-2025 GFR/1.73 sq M.predicted among non-blacks MDRD (S/P/Bld) [Vol rate/Area] 73 mL/min/{1.73_m2} >60 [facility] Comment on above: mL/min/1.73m2 CKD-EP I Creatinine Equation (2020) Hematocrit Auto (Bld) [Volum e fraction]Ordered By: Eriberto Her on 05-08-2025 Hematocrit (Bld) [Volume fraction] 44.8 % 40-54 [facility] Hemoglobin measurementOrdere d By: Eriberto Her on 05-08-2025 Hemoglobin (Bld) [Mass/Vol] 15.5 g/dL 13.0-16.5 [facility] Immature granulocytes/100 WB C Auto (Bld)Ordered By: Eriberto Her on 05-08-2025 Immature granulocytes/100 WBC (Bld) 0.300 % 0.0-0.9 [facility] Comment on above: IG% - Immature Granu locytes (promyelocytes, myelocytes and metamyelocytes) > 1% indicates that a LEFT SHIFT is Present. MCV (mean corpuscular volume ) determinationOrdered By: Eriberto Her on 05-08-2025 MCV (RBC) [Entitic vol] 90.9 fL 80-94 [facility] Mean corpuscular hemoglobin (MCH) determinationOrdered By: Eriberto Her on 05-08-2025 MCH (RBC) [Entitic mass] 31.4 pg 27.0-32.0 [facility] Mean corpuscular hemoglobin concentration (MCHC) determinationOrdered By: Eriberto Her on 05-08-2025 MCHC (RBC) [Mass/Vol] 34.6 g/dL 32-36 [facility] Mean platelet volume determi nationOrdered By: Eriberto Her 05-08-2025 Platelet mean volume (Bld) [Entitic vol] 9.1 fL 6.2-12.0 [facility] Monocyte percentageOrdered B y: Eriberto Her on 05-08-2025 Monocytes/100 WBC (Bld) 8.9 % 0-[address] [facility] Neutrophil percentageOrdered By: Eriberto Her on 05-08-2025 Neutrophils/100 WBC (Bld) 71.3 % High 47-70 [facility] Nucleated red blood cell per centageOrdered By: Eriberto Her 05-08-2025 Nucleated RBC/100 WBC (Bld) [Ratio] 0 % 0-5 [facility] Platelet countOrdered By: Denilson Her on 05-08-2025 Platelets (Bld) [#/Vol] 318 10*3/uL 150-450 [facility] Potassium measurement (mass/ volume)Ordered By: Eriberto Her on 05-08-2025 Potassium (Unsp spec) [Mass/Vol] 3.7 mmol/L 3.3-5.1 [facility] RBC Auto (Bld) [#/Vol]Ordere d By: Eriberto Her on 05-08-2025 RBC (Bld) [#/Vol] 4.93 10*6/uL 4.6-6.2 [facility] Serum creatinine measurement (mass/volume)Ordered By: Eriberto Her 05-08-2025 Creatinine [Mass/Vol] 1.06 mg/dL 0.70-1.20 [facility] Serum glucose measurement (m ass/volume)Ordered By: Eriberto Her on 05-08-2025 Glucose [Mass/Vol] 98 mg/dL 70-99 [facility] Serum or plasma C reactive p rotein measurement (mass/volume)Ordered By: Eriberto Her on 05-08-2025 CRP [Mass/Vol] 21.00 mg/L High 0.0-3.0 [facility] Serum or plasma calcium rebecca urement (mass/volume)Ordered By: Eriberto Her on 05-08-2025 Calcium [Mass/Vol] 9.6 mg/dL 7.6-11.0 [facility] Serum or plasma urea nitroge n measurement (mass/volume)Ordered By: Eriberto Her on 05-08-2025 Urea nitrogen [Mass/Vol] 20 mg/dL High 4-19 [facility] Sodium levelOrdered By: Eribreto Her 05-08-2025 Sodium [Moles/Vol] 140 mmol/L 133-145 [facility] White blood cell (WBC) count Ordered By: Eriberto Arden on 05-08-2025 WBC (Bld) [#/Vol] 10.4 10*3/uL 4.4-11.0 [facility] Urgent Care Visit Reporton 0 04-27-2025 Urgent Care Visit Report [facility] [address] [facility], [address] [place] [address] OFFICE VISIT Date of Service: 04/27/25 MR#: [id number] Acct: [id number] Name: TYRONE AGUILAR Rep #: [id number] : 1950 Provider: KINGS Cruz Age/Sex: 74/M Location: [facility] Status: Signed Intake Vital Signs 04/25/22 14:54 04/27/25 08:14 Height 5 ft 11 in BP 136/78 H Blood Pressure Location Lt brachial Position Sitting Respiration 17 Pulse 144 H Pulse Source NIBP Temp 98.0 F Temp Source Oral Pulse Oximetry (%) 97 Oxygen Delivery Method room air Intake Visit Reasons: SWOLLEN RT ANKLE Chief Complaint: right ankle redness/pain [employer] Clerk Required: No Is patient in pain?: Yes [...] Nurse's Note: right medial ankle bump with redness/swelling/pa in since last noc worsening. pt believes he may have been bitten by something while doing yard work yesterday but did not feel or see anything at that time. [facility] Medical History (Updated 04/27/25 @ 09:34 by Mike KU, PA) Impacted cerumen, right ear Acute [...] difficulty breathing. No other associated symptoms or alleviating/aggrava ting factors. ROS Const Constitutional: No other (As [...] needs to follow-up with his PCP and director of workforce development about his A-fib. Advised of potential red flags and when appropriate to report to the ED. Patient verbalized understanding and agreement with all the above. Clinical Quality Measures Falls Risk Screening/Assistive Devices Have you fallen in the past year?: Yes 04/27/25 0935 Date Mike Rajput Signature: Date (if applicable) CC: Normal [facility] Absolute lymphocyte countOrd ered By: Eriberto Her on 04-05-2025 Lymphocytes Auto (Unsp spec) [#/Vol] 1.57 10*3/uL 0.83-4.51 [facility] Absolute neutrophil countOrd ered By: Eriberto Her on 04-05-2025 Neutrophils (Bld) [#/Vol] 6.2 10*3/uL 2.0-7.7 [facility] Anion gap in Serum or Plasma Ordered By: Eriberto Her on 04-05-2025 Anion gap [Moles/Vol] 10 mmol/L 5-15 [facility] Automated blood erythrocyte countOrdered By: Eriberto Her on 04-05-2025 RBC (Bld) [#/Vol] 5.12 10*6/uL Normal 4.6-6.2 [facility] Comment on above: Performed By: #### L 500.4050, L501.9520, L100.0100 #### [facility] [address] [place], [address] Automated blood hematocrit ( percentage)Ordered By: Eriberto Her on 04-05-2025 Hematocrit (Bld) [Volume fraction] 45.7 % Normal 40-54 [facility] Comment on above: Performed By: #### L 500.4050, L501.9520, L100.0100 #### [facility] [address] [place], [address] Automated lymphocyte count a s percentage of total leukocytesOrdered By: Eriberto Her on 04-05-2025 Lymphocytes/100 WBC Auto (Unsp spec) 18.0 % Low 19-41 [facility] BUN/creatinine ratioOrdered By: Eriberto Her on 04-05-2025 Urea nitrogen/Creatinine [Mass ratio] 17.7 mg/mg 10-20 [facility] Basophil percentageOrdered B y: Eriberto Her on 04-05-2025 Basophils/100 WBC (Bld) 0.7 % Normal 0-[address] [facility] Comment on above: Performed By: #### L 500.4050, L501.9520, L100.0100 #### [facility] [address] [place], [address] Bilirubin, totalOrdered By: Eriberto Her on 04-05-2025 Bilirubin [Mass/Vol] 0.55 mg/dL 0.00-1.30 [facility] CBC W/Diff, Automatedon Absolute Lymph 1.57 X10 3/uL Normal 0.83-4.51 [facility] Comment on above: Performed By: #### L 500.4050, L501.9520, L100.0100 #### [facility] [address] [place], [address] Absolute Neut 6.2 X10 3/uL Normal 2.0-7.7 [facility] Comment on above: Performed By: #### L 500.4050, L501.9520, L100.0100 #### [facility] [address] [place], [address] IG% 0.500 Normal 0.0-0.9 [facility] Comment on above: Result Comment: IG% - Immature Granulocytes (promyelocytes, myelocytes and metamyelocytes) > 1% indicates that a LEFT SHIFT is Present. Performed By: #### L 500.4050, L501.9520, L100.0100 #### [facility] [address] [place], [address] Lymphocytes/100 WBC (Bld) 18.0 % Low 19-41 [facility] Comment on above: Performed By: #### L 500.4050, L501.9520, L100.0100 #### [facility] [address] [place], [address] Nucleated RBC (Bld) [#/Vol] 0 10*3/uL Normal 0-5 [facility] Comment on above: Performed By: #### L 500.4050, L501.9520, L100.0100 #### [facility] [address] [place], [address] RDW SD 43.0 fl Normal 35.1-43.9 [facility] Comment on above: Performed By: #### L 500.4050, L501.9520, L100.0100 #### [facility] [address] [place], [address] Carbon dioxide, total [Moles /volume] in Central venous bloodOrdered By: Eriberto Her on 04-05-2025 CO2 [Moles/Vol] 26.8 mmol/L 21.0-32.0 [facility] Chloride assayOrdered By: Denilson Her on 04-05-2025 Chloride [Moles/Vol] 102 mmol/L 98-108 [facility] Comprehensive Metabolic Prof ilon 04-05-2025 Albumin [Mass/Vol] 4.0 g/dL Normal 3.4-4.8 [facility] Comment on above: Order Comment: VITD Performed By: #### L 500.4050, L501.9520, L100.0100 #### [facility] [address] [place], [address] Albumin/Globulin [Mass ratio] 1.3 {ratio} Normal 0.9-2.4 [facility] Comment on above: Order Comment: VITD Performed By: #### L 500.4050, L501.9520, L100.0100 #### [facility] [address] [place], [address] ALK PHOS 63 U/L Normal 40-129 [facility] Comment on above: Order Comment: VITD Performed By: #### L 500.4050, L501.9520, L100.0100 #### [facility] [address] [place], [address] ALT [Catalytic activity/Vol] 24 U/L Normal <=46 [facility] Comment on above: Order Comment: VITD Performed By: #### L 500.4050, L501.9520, L100.0100 #### [facility] [address] [place], [address] AST [Catalytic activity/Vol] 24 U/L Normal <=37 [facility] Comment on above: Order Comment: VITD Performed By: #### L 500.4050, L501.9520, L100.0100 #### [facility] [address] [place], [address] Bilirubin [Mass/Vol] 0.55 mg/dL Normal 0.00-1.30 [facility] Comment on above: Order Comment: VITD Performed By: #### L 500.4050, L501.9520, L100.0100 #### [facility] [address] [place], [address] BUN/CRE 17.7 RATIO Normal 10-20 [facility] Comment on above: Order Comment: VITD Performed By: #### L 500.4050, L501.9520, L100.0100 #### [facility] [address] [place], [address] Calcium [Mass/Vol] 9.7 mg/dL Normal 7.6-11.0 [facility] Comment on above: Order Comment: VITD Performed By: #### L 500.4050, L501.9520, L100.0100 #### [facility] [address] [place], [address] Chloride [Moles/Vol] 102 mmol/L Normal 98-108 [facility] Comment on above: Order Comment: VITD Performed By: #### L 500.4050, L501.9520, L100.0100 #### [facility] [address] [place], [address] CO2 [Moles/Vol] 26.8 mmol/L Normal 21.0-32.0 [facility] Comment on above: Order Comment: VITD Performed By: #### L 500.4050, L501.9520, L100.0100 #### [facility] [address] [place], [address] Creatinine [Mass/Vol] 1.00 mg/dL Normal 0.70-1.20 [facility] Comment on above: Order Comment: VITD Performed By: #### L 500.4050, L501.9520, L100.0100 #### [facility] [address] [place], [address] GAP 10 Normal 5-15 [facility] Comment on above: Order Comment: VITD Performed By: #### L 500.4050, L501.9520, L100.0100 #### [facility] [address] [place], [address] GFR/1.73 sq M.predicted among non-blacks MDRD (S/P/Bld) [Vol rate/Area] 78 mL/min/{1.73_m2} Normal >60 [facility] Comment on above: Order Comment: VITD Result Comment: mL/m in/1.73m2 CKD-EPI Creatinine Equation (2020) Performed By: #### L 500.4050, L501.9520, L100.0100 #### [facility] [address] [place], [address] Globulin (S) [Mass/Vol] 3.0 g/dL Normal 2.2-4.2 [facility] Comment on above: Order Comment: VITD Performed By: #### L 500.4050, L501.9520, L100.0100 #### [facility] [address] [place], [address] Glucose [Mass/Vol] 95 mg/dL Normal 70-99 [facility] Comment on above: Order Comment: VITD Performed By: #### L 500.4050, L501.9520, L100.0100 #### [facility] [address] [place], [address] Potassium [Moles/Vol] 4.1 mmol/L Normal 3.3-5.1 [facility] Comment on above: Order Comment: VITD Performed By: #### L 500.4050, L501.9520, L100.0100 #### [facility] [address] [place], [address] Sodium [Moles/Vol] 140 mmol/L Normal 133-145 [facility] Comment on above: Order Comment: VITD Performed By: #### L 500.4050, L501.9520, L100.0100 #### [facility] [address] [place], [address] T PROT 7.1 g/dL Normal 5.9-8.4 [facility] Comment on above: Order Comment: VITD Performed By: #### L 500.4050, L501.9520, L100.0100 #### [facility] [address] [place], [address] Urea nitrogen [Mass/Vol] 18 mg/dL Normal 4-19 [facility] Comment on above: Order Comment: VITD Performed By: #### L 500.4050, L501.9520, L100.0100 #### [facility] [address] [place], [address] Eosinophil percentageOrdered By: Eriberto Her on 04-05-2025 Eosinophils/100 WBC (Bld) 1.8 % Normal 0-5 [facility] Comment on above: Performed By: #### L 500.4050, L501.9520, L100.0100 #### [facility] [address] [place], [address] Erythrocyte distribution wid th ratioOrdered By: Eriberto Her on 04-05-2025 Erythrocyte distribution width (RBC) [Ratio] 13.2 % Normal 11.6-14.6 [facility] Comment on above: Performed By: #### L 500.4050, L501.9520, L100.0100 #### [facility] [address] [place], [address] Erythrocyte distribution wid th standard deviationOrdered By: Eriberto Her on 04-05-2025 Erythrocyte distribution width (RBC) [Ratio] 43.0 fl 35.1-43.9 [facility] Glomerular filtration rate ( GFR) estimation/1.73 sq m using serum, plasma, or whole bOrdered By: Eriberto Her on 04-05-2025 GFR/1.73 sq M.predicted among non-blacks MDRD (S/P/Bld) [Vol rate/Area] 78 mL/min/{1.73_m2} >60 [facility] Comment on above: mL/min/1.73m2 CKD-EP I Creatinine Equation (2020) Hemoglobin measurementOrdere d By: Eriberto Her on 04-05-2025 Hemoglobin (Bld) [Mass/Vol] 15.8 g/dL Normal 13.0-16.5 [facility] Comment on above: Performed By: #### L 500.4050, L501.9520, L100.0100 #### [facility] [address] [place], [address] Immature granulocytes/100 WB C Auto (Bld)Ordered By: Eriberto Her on 04-05-2025 Immature granulocytes/100 WBC (Bld) 0.500 % 0.0-0.9 [facility] Comment on above: IG% - Immature Granu locytes (promyelocytes, myelocytes and metamyelocytes) > 1% indicates that a LEFT SHIFT is Present. Laboratory - Chemistry and C hemistry - challengeOrdered By: Eriberto Her on 04-05-2025 AST [Catalytic activity/Vol] 24 U/L <38 [facility] MCV (mean corpuscular volume ) determinationOrdered By: Eriberto Her on 04-05-2025 MCV (RBC) [Entitic vol] 89.3 fL Normal 80-[address] [facility] Comment on above: Performed By: #### L 500.4050, L501.9520, L100.0100 #### [facility] [address] [place], [address] Mean corpuscular hemoglobin (MCH) determinationOrdered By: Eriberto Her on 04-05-2025 MCH (RBC) [Entitic mass] 30.9 pg Normal 27.0-32.0 [facility] Comment on above: Performed By: #### L 500.4050, L501.9520, L100.0100 #### [facility] [address] [place], [address] Mean corpuscular hemoglobin concentration (MCHC) determinationOrdered By: Eriberto Her on 04-05-2025 MCHC (RBC) [Mass/Vol] 34.6 g/dL Normal 32-36 [facility] Comment on above: Performed By: #### L 500.4050, L501.9520, L100.0100 #### [facility] [address] [place], [address] Mean platelet volume determi nationOrdered By: Eriberto Her on 04-05-2025 Platelet mean volume (Bld) [Entitic vol] 8.9 fL Normal 6.2-12.0 [facility] Comment on above: Performed By: #### L 500.4050, L501.9520, L100.0100 #### [facility] [address] [place], [address] Monocyte percentageOrdered B y: Eriberto Her on 04-05-2025 Monocytes/100 WBC (Bld) 8.3 % Normal 0-10 [facility] Comment on above: Performed By: #### L 500.4050, L501.9520, L100.0100 #### [facility] [address] [place], [address] Neutrophil percentageOrdered By: Eriberto Her on 04-05-2025 Neutrophils/100 WBC (Bld) 70.7 % High 47-70 [facility] Comment on above: Performed By: #### L 500.4050, L501.9520, L100.0100 #### [facility] [address] [place], [address] Nucleated red blood cell per centageOrdered By: Eriberto Her on 04-05-2025 Nucleated RBC/100 WBC (Bld) [Ratio] 0 % 0-5 [facility] Platelet countOrdered By: Denilson Her on 04-05-2025 Platelets (Bld) [#/Vol] 312 10*3/uL Normal 150-450 [facility] Comment on above: Performed By: #### L 500.4050, L501.9520, L100.0100 #### [facility] [address] [place], [address] Potassium measurement (mass/ volume)Ordered By: Eriberto Her on 04-05-2025 Potassium (Unsp spec) [Mass/Vol] 4.1 mmol/L 3.3-5.1 [facility] Serum creatinine measurement (mass/volume)Ordered By: Eriberto Her on 04-05-2025 Creatinine [Mass/Vol] 1.00 mg/dL 0.70-1.20 [facility] Serum globulin measurementOr dered By: Eriberto Her on 04-05-2025 Globulin (S) [Mass/Vol] 3.0 g/dL 2.2-4.2 [facility] Serum glucose measurement (m ass/volume)Ordered By: Eriberto Her 04-05-2025 Glucose [Mass/Vol] 95 mg/dL 70-99 [facility] Serum or plasma alanine painting otransferase (ALT) measurementOrdered By: Eriberto Her 04-05-2025 ALT [Catalytic activity/Vol] 24 U/L <47 [facility] Serum or plasma albumin rebecca urement (mass/volume)Ordered By: Eriberto Her 04-05-2025 Albumin [Mass/Vol] 4.0 g/dL 3.4-4.8 [facility] Serum or plasma albumin/glob ulin mass ratioOrdered By: Eriberto Her 04-05-2025 Albumin/Globulin [Mass ratio] 1.3 {ratio} 0.9-2.4 [facility] Serum or plasma alkaline cristela sphatase measurementOrdered By: Eriberto Her 04-05-2025 ALP [Catalytic activity/Vol] 63 U/L 40-129 [facility] Serum or plasma calcium rebecca urement (mass/volume)Ordered By: Eriberto Her 04-05-2025 Calcium [Mass/Vol] 9.7 mg/dL 7.6-11.0 [facility] Serum or plasma urea nitroge n measurement (mass/volume)Ordered By: Eriberto Her 04-05-2025 Urea nitrogen [Mass/Vol] 18 mg/dL 4-19 [facility] Sodium levelOrdered By: Eriberto Her 04-05-2025 Sodium [Moles/Vol] 140 mmol/L 133-145 [facility] TSH DL <= 0.005 mIU/L QnOrde red By: Eriberto Her on 04-05-2025 TSH Qn 3.090 uIU/mL 0.300-4.200 [facility] Thyroid Stim Hormone (TSH)on 04-05-2025 TSH 3.090 uIU/mL Normal 0.300-4.200 [facility] Comment on above: Performed By: #### L 500.4050, L501.9520, L100.0100 #### [facility] [address] [place], [address] Total proteinOrdered By: Eriberto Her on 04-05-2025 Protein [Mass/Vol] 7.1 g/dL 5.9-8.4 [facility] White blood cell (WBC) count Ordered By: Eriberto Her on 04-05-2025 WBC (Bld) [#/Vol] 8.7 10*3/uL Normal 4.4-11.0 [facility] Comment on above: Performed By: #### L 500.4050, L501.9520, L100.0100 #### [facility] [address] [place], [place], [address] Re-Evaluation - PT (1)on Re-Evaluation - PT (1) [facility] Physical Therapy [facility] [address] [place] [address] [address] [place] [address] / REEVALUATION / MEDICARE RECERTIFICATION PHYSICAL THERAPY MR#: [id number] Acct: [id number] Name: TYRONE AGUILAR Rep #: [id number] : 1950 74 From: Eric Weber DPT Referring Dr.: Dr. Jae Rainey MD Status:REG RCR Insurance: [facility] [id number] SELF PAY INSURANCE Re-Evaluation Intro: Dr. Jae [...] tolerance with all walking and functional mobility. Balance/Gait/Functi onal tests Balance/Special Test Scores Lower Extremity Functional [...] Purpose of:: To decrease pain, To decrease swelling/inflammati on and To increase ROM Manual Therapy Techniques to Include: Mobilization For the Purpose of:: To decrease pain, To decrease swelling/inflammati on and To increase ROM IF ES: Yes Other electric stimulation: Yes Cryotherapy (ice pack, ice massage): Yes For the Purpose of:: To decrease pain, To decrease swelling/inflammati on and To increase ROM Re-Evaluation Ending Re-evaluation ending: Please do not hesitate to contact me at [phone] by phone or if you have questions or concerns regarding this new plan of care! Sincerely, Eric Weber DPT 03/30/25 0849 CC: Dr. Jae Rainey MD; Dr. Eriberto Her MD CLS Signed For Medicare only, by signing this I certify the plan of care. _ Physicians Signature Date Normal [facility] Inital Evaluation (1) - PTon 03-09-2025 Inital Evaluation (1) - PT [facility] Physical Therapy [facility] [address] [place] [address] / REHABILITATION SERVICES INITIAL EVALUATION MR#: [id number] Acct: [id number] Name: TYRONE AGUILAR Rep #: [id number] : 1950 74 From: Eric Weber DPT Referring Dr.: Dr. Jae Rainey MD Status: REG R Insurance: [facility] [id number] SELF PAY INSURANCE Patient's Visit Information Visit [...] Purpose of:: To decrease pain, To decrease swelling/inflammati on and To increase ROM Manual Therapy Techniques to Include: Mobilization For the Purpose of:: To decrease pain, To decrease swelling/inflammati on and To increase ROM IF ES: Yes Other electric stimulation: Yes Cryotherapy (ice pack, ice massage): Yes For the Purpose of:: To decrease pain, To decrease swelling/inflammati on and To increase ROM Text: Thank you for the opportunity to evaluate your patient. For Medicare and Medicare HMO plans, please review the plan of care and approve it. It will need to be FAXED BACK to us at [phone] for Medicare purposes. For Medicare only, by signing this I certify the plan of care. Please let me know if there are questions or concerns regarding this plan of care. Physician Signature: (more content not included)... Normal [facility] Urgent Care Visit Reporton 0 03-03-2025 Urgent Care Visit Report [facility] [address], [address] [place] [address] OFFICE VISIT Date of Service: 03/03/25 MR#: [id number] Acct: [id number] Name: TYRONE AGUILAR Rep #: [id number] : 1950 Provider: KINGS Cruz Age/Sex: 74/M Location: [facility] Status: Signed Intake Vital Signs 04/25/22 14:54 03/03/25 16:06 Height 5 ft 11 in BP 112/70 Blood Pressure Location Rt brachial Position Sitting Respiration 16 Pulse 102 H Pulse Source NIBP Temp 98.7 F Temp Source Oral Pulse Oximetry (%) 95 Oxygen Delivery Method room air Intake Visit Reasons: cough Chief Complaint: cough [employer] Clerk Required: No Is patient in pain?: No [...] BA, fever, congestion, ST. denies lung hx PFSH Medical History (Updated 09/16/24 @ 15:03 by Kamar KU PA) Impacted cerumen, right ear Acute bronchitis, [...] or smell. No other associated symptoms or alleviating/aggrava ting factors. ROS Const Constitutional: No other (As [...] Rajput Signature: Date (if applicable) CC: Normal [facility] Knee 4 or More Viewson 02-20 Knee 4 or More Views [facility] Services [address] [place] [id number] Knee 4 or More Views MR#: [id number] Acct: [id number] Name: TYRONE AGUILAR Rep #: [id number] : 1950 M 74 From: Remigio Rosales MD PCP: Dr. Eriberto Her MD Status: REG CLI Study: Knee 4 or More Views Date of Exam: 02/20/25 Exam# [id number] Ordering Dr: Eriberto Her MD EXAM: Knee [...] Study otherwise appears within limits. Reading Location: [facility] CC: Dr. Eriberto Her MD Social Insurance Analyst: Signed Normal [facility] L/S Spine Min 4 Viewson 01-29 L/S Spine Min 4 Views [facility] Imaging Services [address] [place], [place] [address] L/S Spine Min 4 Views MR#: [id number] Acct: [id number] Name: TYRONE AGUILAR Rep #: [id number] : 1950 M 74 From: Tyrone Lowe MD PCP: Dr. Eriberto Her MD Status: REG CLI Study: L/S Spine Min 4 Views Date of Exam: 02/20/25 Exam# [id number] Ordering Dr: Eriberto Her MD EXAM: XR [...] IMPRESSION: Degenerative changes as above. [facility] CC: Dr. Eriberto Her MD Social Insurance Analyst: Signed Normal [facility] Absolute lymphocyte countOrd ered By: Eriberto Her on 03-16-2024 Lymphocytes Auto (Unsp spec) [#/Vol] 1.51 10*3/uL 0.83-4.51 [facility] Automated lymphocyte count a s percentage of total leukocytesOrdered By: Eriberto Her on 03-16-2024 Lymphocytes/100 WBC Auto (Unsp spec) 22.2 % 19-41 [facility] Basophil percentageOrdered B y: Eriberto Her on 03-16-2024 Basophils/100 WBC (Bld) 0.7 % 0-[address] [facility] Bilirubin [Mass/Vol] 0.60 mg/dL 0.20-1.00 [facility] Comment on above: For patients on eltr ombopag therapy, use of Dimension [place] TBIL is not recommended. Chloride [Moles/Vol] 106 mmol/L 98-107 [facility] Eosinophils/100 WBC (Bld) 2.8 % 0-5 [facility] Glucose [Mass/Vol] 90 mg/dL 74-106 [facility] Hemoglobin (Bld) [Mass/Vol] 14.8 g/dL 13.0-16.5 [facility] Monocytes/100 WBC (Bld) 7.8 % 0-[address] [facility] Neutrophils (Bld) [#/Vol] 4.5 10*3/uL 2.0-7.7 [facility] Neutrophils/100 WBC (Bld) 66.2 % 47-70 [facility] Potassium [Moles/Vol] 4.2 mmol/L 3.5-5.1 [facility] Protein [Mass/Vol] 7.4 g/dL 6.4-8.2 [facility] Sodium [Moles/Vol] 140 mmol/L 136-145 [facility] WBC (Bld) [#/Vol] 6.8 10*3/uL 4.4-11.0 [facility] Determination of erythrocyte mean corpuscular volume (MCV)Ordered By: Eriberto Her on 03-16-2024 MCV (RBC) [Entitic vol] 91.7 fL 80-[address] [facility] Erythrocyte distribution wid th ratioOrdered By: Eriberto Her on 03-16-2024 Erythrocyte distribution width (RBC) [Ratio] 13.1 % 11.6-14.6 [facility] Erythrocyte distribution wid th standard deviationOrdered By: Eriberto Her on 03-16-2024 Erythrocyte distribution width (RBC) [Entitic vol] 44.0 fL 35.1-43.9 [facility] Hematocrit Auto (Bld) [Volum e fraction]Ordered By: Eriberto Arden 03-16-2024 Hematocrit (Bld) [Volume fraction] 44.2 % 40-54 [facility] Immature granulocytes/100 WB C Auto (Bld)Ordered By: Eriberto Her 03-16-2024 Immature granulocytes/100 WBC (Bld) 0.300 % 0.0-0.9 [facility] Comment on above: IG% - Immature Granu locytes (promyelocytes, myelocytes and metamyelocytes) > 1% indicates that a LEFT SHIFT is Present. Laboratory - Chemistry and C hemistry - challengeOrdered By: Eriberto Her on 03-16-2024 Albumin/Globulin [Mass ratio] 1.1 {ratio} 0.9-2.4 [facility] ALP [Catalytic activity/Vol] 62 U/L 45-117 [facility] ALT [Catalytic activity/Vol] 28 U/L 16-61 [facility] CO2 [Moles/Vol] 30.0 mmol/L 21.0-32.0 [facility] Globulin (S) [Mass/Vol] 3.6 g/dL 2.2-4.2 [facility] Urea nitrogen/Creatinine [Mass ratio] 19.8 mg/mg 10-20 [facility] Laboratory - Hematology and Cell countsOrdered By: Eriberto Her on 03-16-2024 MCH (RBC) [Entitic mass] 30.7 pg 27.0-32.0 [facility] MCHC (RBC) [Mass/Vol] 33.5 g/dL 32-36 [facility] Nucleated RBC/100 WBC (Bld) [Ratio] 0 % 0-5 [facility] Platelet mean volume (Bld) [Entitic vol] 9.1 fL 6.2-12.0 [facility] Platelets (Bld) [#/Vol] 263 10*3/uL 150-450 [facility] No Panel InformationOrdered By: Eriberto Her on 03-16-2024 Estimated GFR (MDRD) Amer 93 mL/min >60 [facility] Comment on above: GFR Calc Estimated GFR (MDRD) Non-Af Amer 77 mL/min >60 [facility] Comment on above: Non- GFR Calc Vitamin D 25-Hydroxy 27.8 ng/mL [facility] Comment on above: Vitamin D 25(OH) Sta tus Range Deficiency <20 ng/mL (50nmol/L) Insufficiency 20 - 30 ng/mL (50 - 75 nmol/L) Sufficiency 30 - 100 ng/mL (75 - 250 nmol/L) Toxicity >100 ng/mL (>250 nmol/L) RBC Auto (Bld) [#/Vol]Ordere d By: Eriberto Her on 03-16-2024 RBC (Bld) [#/Vol] 4.82 10*6/uL 4.6-6.2 [facility] Serum or plasma calcium rebecca urement (mass/volume)Ordered By: Eriberto Her on 03-16-2024 Calcium [Mass/Vol] 9.1 mg/dL 8.5-10.1 [facility] Serum or plasma creatinine m easurement (mass/volume)Ordered By: Eriberto Her on 03-16-2024 Creatinine [Mass/Vol] 1.01 mg/dL 0.70-1.30 [facility] Comment on above: The validity of the calculated GFR & GFRAA in patients over 70 years has not been determined. Clinical correlation is essential. Serum or plasma thyroid stim ulating hormone (TSH) measurement (units/volume)Ordered By: Eriberto Kochok on 03-16-2024 TSH Qn 1.81 uIU/mL 0.358-3.74 [facility] Serum or plasma urea nitroge n measurement (mass/volume)Ordered By: Eriberto Kochok on 03-16-2024 Urea nitrogen [Mass/Vol] 20 mg/dL 7-18 [facility] Thin prep Papanicolaou smear with manual screeningOrdered By: Eriberto Her on 03-16-2024 Thin prep Papanicolaou smear with manual screening 3.8 g/dL 3.2-5.0 [facility] Thin prep Papanicolaou smear with manual screening 21 U/L 15-37 [facility] Thin prep Papanicolaou smear with manual screening 4 5-15 [facility] CNOVon 01-01-2024 CNOV Office Visit (NESLST) ---- TYRONE AGUILAR ([id number]) 1950 M Date Time Provider Department 01/01/24 9:30 AM NATHALY RODRIGEZ During your visit today, we recorded the following information about you: Pulse Blood pressure Weight Height 69/minute 109/71 103 kg 1.829 m Nathaly Rodrigez APRN.CNP 01/01/2024 9:17 AM Signed - Call [facility] at [phone] to order your CPAP supplies - Any appointments can be scheduled through the central scheduling system for the [facility] [place] at [phone]. - To reach my offices, please call [phone] opt 5. - May use Message My Doc through My Chart for questions. - [facility] website: [email or web address] PAP Supply Guidelines Below are the guidelines [...] and refill with water recommended by the side piece coverer. Weekly: Wash hose with mild dish soap. [...] MA 01/01/2024 9:37 AM Signed Nathaly Rodrigez APRN.FANNY 01/01/2024 9:37 AM Signed [facility] Follow-up/Establish ed patient visit Date of last visit: 01/28/2023 [...] months or sooner if needed. Padmini Parra APRN.MACHINE ROUGH ROUNDER HPI: SLEEP APNEA Sleep apnea type : AMALIA, Most Recent Apnea-Hypopnea Index (AHI): 101 Treatment : PAP therapy DME: [facility] PAP History: Current PAP settin-15 cm H2O. [...] Known Aller (more content not included)... Normal [facility] [place]istan 01-01-2024 FANNYN Telephone (NESLST) ---- TYRONE AGUILAR ([id number]) 1950 M Date Time Provider Department 01/01/24 NATHALY RODRIGEZ During your visit today, we recorded the following information about you: Vinay Bocanegra MA 01/01/2024 10:18 AM Signed Faxed to [facility] [place] Prescription for Cpap. Received fax confirmation. Placed in file. Vinay Bocanegra MA Allergies As of Date: 01/01/2024 (No Known Allergies) Date Reviewed: 01/01/2024 Reviewed by: Nathaly Rodrigez APRN.MACHINE ROUGH ROUNDER - Fully Assessed [facility] Cmt: Faxed prescription Prescriptions as of 01/01/2024 - CPAP/BIPAP/OTHER Supplies : Settings 8 - 15 cm H2O, suitable mask per pt preference, chin strap, head gear, humidity, tubing, lifetime supplies. 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 - CPAP/BIPAP/OTHER Type .CPAPSettings into a note to see current settings/supplies/D ME information. - cholecalciferol, Vitamin D3, (VITAMIN D3) 1,250 mcg (50,000 unit) cap capsule Take 1 capsule by mouth one time a week. - CPAP Pressure change to Settings 8 - 15 cm H2O, EPR to 3 at fulltime, Response to SOFT, suitable mask per pt preference, chin strap, head gear, humidity, heated tubing (JUSTUS), lifetime supplies. 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 - Valsartan-hydroCHLO ROthiazide 160-12.5 mg per tablet - citalopram hydrobromide (CELEXA) 10 mg tablet Problem List As Of Date 01/01/2024 Noted Resolved AMALIA (obstructive sleep apnea) [G47.33] 08/23/2021 Encounter Status:Closed by VINAY BOCANEGRA on 01/01/24 [facility] [place] 12-24-2023 MARLENI Telephone (NEURST) ---- TYRONE AGUILAR ([id number]) 1950 M Date Time Provider Department 12/24/23 NATHALY RODRIGEZ During your visit today, we recorded the following information about you: Vinay Bocanegra MA 12/24/2023 9:54 AM Signed Spoke to [facility] [place] patient is non compliant has not used since 2021. Vinay Bocanegra MA Allergies As of Date: 12/24/2023 (No Known Allergies) Date Reviewed: 03/28/2022 Reviewed by: Nathaly Rodrigez APRN.MACHINE ROUGH ROUNDER - Fully Assessed Reason for Visit: PAP Therapy Follow Up [1285] Cmt: Prescriptions as of 12/24/2023 - CPAP/BIPAP/OTHER Type .CPAPSettings into a note to see current settings/supplies/D ME information. - cholecalciferol, Vitamin D3, (VITAMIN D3) 1,250 mcg (50,000 unit) cap capsule Take 1 capsule by mouth one time a week. - CPAP Pressure change to Settings 8 - 15 cm H2O, EPR to 3 at fulltime, Response to SOFT, suitable mask per pt preference, chin strap, head gear, humidity, heated tubing (JUSTUS), lifetime supplies. 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 - Valsartan-hydroCHLO ROthiazide 160-12.5 mg per tablet - citalopram hydrobromide (CELEXA) 10 mg tablet Problem List As Of Date 12/24/2023 Noted Resolved AMALIA (obstructive sleep apnea) [G47.33] 08/23/2021 Encounter Status:Closed [facility] TYR[facility] AGUILAR ([id number]) 1950 M Date Time Provider Department 12/24/23 NATHALY RODRIGEZ During your visit today, we recorded the following information about you: Vinay Bocanegra MA 12/24/2023 12:26 PM Signed Allergies As of Date: 12/24/2023 (No Known Allergies) Date Reviewed: 03/28/2022 Reviewed by: Nathaly Rodrigez APRN.MACHINE ROUGH ROUNDER -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 alcohol or drug abuse patient.[facility] HospitalIn the event this information is protected by the Federal Confidentiality of Alcohol and Drug Abuse Patient Records regulations: The Federal rules restrict any use of the information to criminally investigate or prosecute any alcohol or drug abuse patient.[facility] HospitalIn the event this information is protected by the Federal Confidentiality of Alcohol and Drug Abuse Patient Records regulations: The Federal rules restrict any use of the information to criminally investigate or prosecute any alcohol or drug abuse patient.[facility] HospitalIn the event this information is protected by the Federal Confidentiality of Alcohol and Drug Abuse Patient Records regulations: The Federal rules restrict any use of the information to criminally investigate or prosecute any alcohol or drug abuse patient.[facility] HospitalIn the event this information is protected by the Federal Confidentiality of Alcohol and Drug Abuse Patient Records regulations: The Federal rules restrict any use of the information to criminally investigate or prosecute any alcohol or drug abuse patient.[facility] Reason for Visit (unrecogniz ed section and [...] April 27, 2025 End: April 27, 2025 KINGS Fagan Attending Provider Active Sta rt: April 27, 2025 End: April 27, 2025 Team Status: Inactive Member Role Status Dates Dr. Eriberto Her MD Primary Care Provider Active Start: May 08, 2025 End: May 08, 2025 Dr. Eriberto Her MD Attending Provider Active Start: May 08, 2025 End: May 08, 2025 Dr. Eriberto Her MD Referring Provider Active Start: May 08, 2025 End: May 08, 2025 Team Status: Active Member Role Status Dates Dr. Eriberto Her MD Primary Care Provider Active Start: May 10, 2025 Dr. Jae Rainey MD Attending Provider Active Start: May 10, 2025 Dr. Jae Rainey MD Referring Provider Active Start: May 10, 2025 Team Status: Inactive Member Role Status Dates Dr. Eriberto Her MD Primary Care Provider Active Start: May 19, 2025 End: May 19, 2025 Dr. Jae Rainey MD Attending Provider Active Start: May 19, 2025 End: May 19, 2025 Dr. Jae Rainey MD Referring Provider Active Start: May 19, 2025 End: May 19, 2025 (unrecognized sect ion and content) No Status Records FoundNo Status Records Found INFORMATION SOURCE (unrecogn ized section and content) DATE CREATED AUTHOR 01/02/2024 [facility] DATE CREATED AUTHOR AUTHOR'S ADRIA [place] 10/07/2025 [facility] FOR RECORDS PERTAINING TO PATIENTS WHO ARE [...] BE BASED ON THE PRIMARY CLINICAL RECORDS. [facility] provides no warranty or guarantee of the accuracy or completeness of information in this document.
[2025-11-22 07:09] LABS: Prothrombin Time (Protime)PT. 14.5 SECONDS (11.7-14.9)
[2025-11-22 07:10] LABS: Partial Thromboplast Time 36.2 Seconds (24.1-36.2)
[2025-11-22 07:16] LABS: Anion Gap 14 (7-18); BUN 21 mg/dL (4-19); BUN/Creat Ratio 16.1 RATIO (10-20); Calcium,Total 9.1 mg/dL (7.6-11.0); Carbon Dioxide 21.2 mmol/L (20.0-29.0); Chloride 101 mmol/L (96-106); Estimated Creatinine Clearance 58.33 ml/min (50-250); Glucose 137 mg/dL (70-99); Potassium 3.5 mmol/L (3.5-5.1); Pro- Brain NATRIURETIC PEPTIDE 94 pg/mL (<=1800)
--- NOTE | 2025-11-22 07:58 | ADUL_ITS ---
Reason For Study Reason For Study: Leg pain, r/o popliteal occlusion per CTA Left Velocities Common Femoral Artery, dist = 94.2 cm./sec. Supf. Femoral Artery, mid = 109.5 cm./sec. Profunda Femoral Artery = 68.7 cm./sec. Popliteal Artery, proximal, = 78.8 cm./sec. Popliteal Artery, mid = 63.7 cm./sec. Popliteal Artery, distal = 76.5 cm./sec. Post Tibial Artery, mid = 127.7 cm./sec. Peroneal Artery, mid = 87.5 cm./sec. Ant Tibial Artery, mid = 107.6 cm./sec. Procedure Preliminary report given to Dr. Sharma. Limited exam performed. Exam performed portable in ED. /US Art Duplex Unilat Lower Ext Interpretation Summary Patent left lower extremity arteries with normal velocities and waveforms with no evidence of stenosis. Ordering Physician: Jordan Sharma Referring Physician: Avery Mayorga Performed By: Nerissa Manriquez RVT
--- NOTE | 2025-11-22 08:29 | EDS_ITS ---
HPI History of Present Illness Chief Complaint: Weakness Informant: patient and spouse/S.O. Narrative Narrative: Patient is a 75-year-old male with past medical history of hypertension obstructive sleep apnea paroxysmal atrial fibrillation not on anticoagulation. He states that he has been having increasing pain to his bilateral legs that is present at rest but seems to greatly increased when he walks. He states that the pain is more intense on the right leg than the left and states the pain occurs mainly in the foot and will travel up to past the ankle on the right but stay only in the dorsal aspect of the foot on the left. He states that his family doctor has placed him on Pletal and has been taking 100 mg twice a day but despite doing this there is been no symptom improvement. He states he actually feels like his pain is worsening and it is to the point where it is so bad now when he tries to stand and walk he cannot do so. Therefore with the worsening pain and inability to ambulate and perform his activities of daily living he was brought in for evaluation. [facility] Medical History Anxiety PLMD (periodic limb movement disorder) AM[place] on CPAP A-fib Hypertension Home Medications ?Medication ?Instructions ?Recorded ?Last Taken ?Type citalopram 10 mg tablet 10 mg PO QDAY 10/17/25 Unkno wn History valsartan 160 1 tab PO QDAY 10/17/25 Unkno wn History mg-hydrochlorothiazide 12.5 mg tablet cilostazol 50 mg tablet 50 mg PO BID 11/22/25 Unknow n History gabapentin 300 mg capsule 300 mg PO TID 14 days #42 ca ps 11/22/25 Unknown Rx hydrocodone-acetaminophen 5-325mg 1 tab PO Q6H PRN alpa n 3 days #12 11/22/25 Unknown Rx 5mg-325mg tabs Allergy/AdvReac Type Severity Reaction Status Date / Time aspirin AdvReac Other Verified 11/22/25 06:24 Family History Father Cancer Surgical History No pertinent past surgical history Social History Smoking Status: Never smoker alcohol intake: current substance use type: does not use caffeine: Yes (minimal) ROS ROS ED Constitutional Constitutional ED: Denies chills or fever(s) ENT ENT ED: Denies sore throat Cardiovascular Cardiovascular: Denies chest pain Respiratory/Chest Respiratory/Chest: Denies cough or dyspnea Gastrointestinal Gastrointestinal: Denies abdominal pain, diarrhea, nausea or vomiting Musculoskeletal Musculoskeletal: Reports other Details: Positive bilateral leg pain Integumentary Denies rash Neurologic Neurologic: Reports weakness; Denies headache(s) Hematologic/Lymphatic Hematologic/Lymphatic: Reports easy bleeding and easy bruising EXAM Physical Exam Const Vital Signs: 11/22/25 06:18 11/22/25 06:21 11/22/25 08:41 Temperature 98.0 F Temperature Source Oral Pulse Rate 77 72 Respiratory Rate 20 H 20 H Respiratory Effort Normal Non-Labored Respiratory Pattern Normal Blood Pressure 148/73 H 106/80 Blood Pressure Mean 98 88 Pulse Ox 98 95 Oxygen Delivery Method Room Air Room Air Positive well nourished, well developed and obese General Appearance ED: well developed; Negative for pallor Nutritional Appearance: obese HEENT HEENT Narrative: Normocephalic atraumatic Eyes PERRL and EOMs intact bilaterally General Eye ED: Negative for scleral icterus Neck supple Neck Narrative: No nuchal rigidity or meningeal signs Resp normal respiratory effort and clear to auscultation bilaterally Cardio regular rate and regular rhythm Rate: other Other Details: Radial and carotid pulses are equal and symmetric GI normal to inspection, nondistended, normoactive bowel sounds, non-tender, non- distended and no masses GI Narrative: No voluntary guarding or rigidity or pulsatile mass Auscultation: normoactive bowel sounds Palpation: soft Extremity Extremity Narrative: Bilateral lower extremities are neurovascularly intact Capillary refill is at 3 seconds for both feet Warmth is symmetric No obvious bony deformity or joint effusion No asymmetric edema Negative Homans' sign bilaterally Active range of motion is slightly decreased secondary to pain Neuro oriented x3 and CN's II-XII intact bilaterally Sensorium / Orientation: alert Psych mental status grossly normal Skin no rashes or lesions noted Skin Narrative: Capillary refill is at 3 seconds for bilateral lower extremity No overlying soft tissue changes to suggest trauma or infection General Skin Exam: Negative for jaundice or pallor MDM MDM MDM Narrative Medical decision making narrative: Patient arrived to the ER mildly hypertensive but has a past medical history of this and otherwise stable vitals. He reported increasing pain to his bilateral legs greater on the right without any symptom improvement with the Pletal. Physical exam shows strong dorsalis pedis pulses and normal capillary refill bilaterally going against arterial occlusion. However his symptoms do appear to be secondary to claudication in nature and therefore elected perform a CTA with runoff to assess for peripheral arterial disease or obstruction not noted on physical exam. The radiologist had concern for slow flow versus obstruction in the left popliteal artery and recommended an arterial duplex. This was performed and shows normal flow through the vascular structures which correlates with his physical exam. Moreover I also discussed the case with vascular surgeon Dr. Jimenez. He reviewed the CT scan with runoff and feels that the patient's vascular structures at his age is overall normal and does not see a vascular reason for his pain or findings that would indicate this is claudication in nature. He states it could be related to a different process such as nervous impingement in the low back. The patient was treated with morphine and reported mild improvement of his pain. As his overall workup does not reveal electrolyte abnormality acute kidney injury or vascular claudication I do not feel the need for any emergent intervention. I discussed the case with the hospitalist/Dr. Sullivan about potentially bringing the patient in for intractable pain and inability to ambulate. At this time she recommends adding further studies such as CPK ESR CRP and uric acid to assess for any other causes of his symptoms. We will also obtain an MRI from the ER to check for neurologic impingement. At this time as those studies are still pending the patient will be signed out to the day physician Dr. Richter As the patient is requiring further workup to diagnose the main cause of his bilateral leg pain and has difficulty ambulating because of it it is not recommended that he travel at this time until the remainder of his workup is completed and he has undergone treatment options. History & Record Review Discussion w/independent historian: Patient and Significant other Lab Data Attestation: I reviewed the patient's lab results. Labs: Laboratory Results - last 24 hr 11/22/25 06:40 WBC 12.7 H RBC 4.21 L Hgb 13.1 Hct 36.8 L MCV 87.4 MCH 31.1 MCHC 35.6 RDW Std Deviation 38.9 RDW Coeff of Alexis 12.2 Plt Count 340 MPV 8.8 Immature Gran % (Auto) 0.200 Neut % (Auto) 83.2 H Lymph % (Auto) 7.6 L [place] % (Auto) 8.3 Eos % (Auto) 0.4 Baso % (Auto) 0.3 Absolute Neuts (auto) 10.6 H Absolute Lymphs (auto) 0.97 Nucleated RBC % 0 PT 14.5 INR 1.1 APTT 36.2 Sodium 137 Potassium 3.5 Chloride 101 Carbon Dioxide 21.2 Anion Gap 14 BUN 21 H Creatinine 1.28 H Estim Creat Clear Calc 58.33 Est GFR (MDRD) Non-Af 58 L BUN/Creatinine Ratio 16.1 Glucose 137 H Calcium 9.1 NT pro BNP II 94 Radiography Diagnostic Testing: Clinical Impression(s) from Imaging Studies Abdomen/Pelvis CTA 11/22/25 06:38 IMPRESSION: 1. Very slow flow versus subacute/occlusion of the distal left popliteal artery with no flow appreciated to the level of the dorsalis pedis artery. 2. Diverticulosis. 3. Fat containing inguinal hernias. Red Alert: Extremely slow flow versus complete occlusion of the distal left popliteal vein that extends distally to the foot. Slow flow versus complete occlusion could be confirmed or excluded with a vascular ultrasound if desired. The critical findings in the findings and impression above were relayed directly by me by telephone to the emergency department physician on 11/22/2025 at 7:52 am with readback verification. Reading Location: [facility] Chest X-Ray 11/22/25 07:02 IMPRESSION: Borderline cardiomegaly with central vascular congestion. Reading Location: [facility] Chest x-ray as interpreted by the emergency medicine physician reveals mild cardiomegaly with mild pulmonary vascular congestion changes but no acute infiltrate or pneumothorax or pleural effusion Management Discussion w/another healthcare provider: Hospitalist, Stone Planer and Radiologist Discharge Plan Triage Chief Complaint: Weakness ED Provider: Jordan Sharma Dx/Rx/DC Orders Clinical Impression: Hypertension, Diastolic dysfunction, Bilateral leg pain Instructions: Understanding Lumbar Radiculopathy Prescriptions: New hydrocodone-acetaminophen 5-325 mg tablet 1 tab PO Q6H PRN (Reason: pain) 3 Days Qty: 12 0RF gabapentin 300 mg capsule 300 mg PO TID 14 Days Qty: 42 0RF No Action citalopram 10 mg tablet 10 mg PO QDAY valsartan-hydrochlorothiazide 160-12.5 mg tablet 1 tab PO QDAY cilostazol 50 mg tablet 50 mg PO BID Primary Care Provider: Avery Mayorga Referrals: Avery Mayorga MD [Primary Care Provider, Family Practice] Activity Restrictions/Additional Instructions: Please call the vascular surgeon Dr. Jimenez who you have an appointment with and discuss if it needs to continue as you have already had a vascular workup with CTA with runoff and a arterial duplex indicating your blood flow is normal and there are not findings of peripheral arterial disease or obstruction. Based on your worsening pain and need for continued workup and treatment it is not recommended that you travel until this is corrected. Please begin taking the [place] and gabapentin for improved symptom control and return to the ER should you have any further concerns Print Language: Stateless
[2025-11-22 08:41] VITALS: BP 106/80; PULSE 72; RESP 20; O2SAT 95
--- NOTE | 2025-11-22 09:14 | MRI_ITS ---
PROCEDURE: SPINE LUMBAR (ROUTINE) 11/22/2025 REASON FOR EXAM: Clinical history of lumbar radiculopathy TECHNIQUE: Procedure Code: MRISPL Modality: MR Procedure: SPINE LUMBAR (ROUTINE) COMPARISON: None available FINDINGS: For the purposes of this report, the most caudal rectangular vertebral body will be designated L5. The next most caudal trapezoidal shaped vertebral body will be designated S1. The intervening disc at the lumbosacral angle is designated L5-S1. Straightening of the lumbar spine. The lumbar vertebral bodies are normal in height. Grade 1 L3-L4 retrolisthesis. Grade 1 L5-S1 anterolisthesis. Likely right L5 pars articularis defect. Well- circumscribed T1/T2 hyperintense lesion at the L2 vertebral body most compatible with an osseous hemangioma. There is otherwise no focal bone marrow replacing lesion in the lumbar spine. Multilevel disc desiccation and intervertebral disc space height loss. There is no evidence of signal abnormality in the imaged distal spinal cord. The conus medullaris terminates at the level of L1. T12-L1: No significant spinal canal stenosis or neural foraminal narrowing. L1-L2: No significant spinal canal stenosis or neural foraminal narrowing. L2-L3: Disc bulge, bilateral facet arthrosis, and ligamentum flavum hypertrophy. Mild spinal canal stenosis. Mild left neural foraminal narrowing. Intact right neural foramen. Type 2 Modic endplate changes. L3-L4: Uncovering of the disc, bilateral facet arthrosis, and ligamentum flavum hypertrophy. Mild spinal canal stenosis and subarticular zone narrowing. Moderate bilateral neural foraminal narrowing. Type 2 Modic endplate changes. L4-L5: Disc bulge, bilateral facet arthrosis, and ligamentum flavum hypertrophy. Mild spinal canal stenosis. Moderate right and mild left neural foraminal narrowing. Type 2 Modic endplate changes. L5-S1: Uncovering of the disc and bilateral facet arthrosis. No significant spinal canal stenosis. Mild right and moderate left neural foraminal narrowing. The left L5 exiting nerve root abuts the disc. Type 2 Modic endplate changes. Fatty atrophy of the posterior paraspinal muscles. MRI/Spine Lumbar (Routine) IMPRESSION: Lumbar spondylosis without high-grade spinal canal stenosis. Multiple levels o f mild and moderate neural foraminal stenosis most prominent at L3-L4 and L4-L5. Reading Location: [id number]
[2025-11-22 10:38] LABS: CPK Total, Creatine Kinase 66 U/L (24-195); CRP 84.50 mg/L (0.0-3.0); Uric Acid 8.5 mg/dL (3.5-7.2)
[2025-11-22 12:00] VITALS: BP 114/70; PULSE 104; O2SAT 96
[2025-11-22 12:14] VITALS: O2SAT 92
[2025-11-22 12:35] LABS: Mucous, Urine 0 SEEN /hpf (<or=2+); Red Blood Cells-Urine 0 SEEN /hpf (0-5); Squamous Epithelial Cells - UA 0 SEEN /hpf (0-5)
[2025-11-22 12:37] LABS: Color, Urine Yellow (Yellow); Glucose, Dipstick Normal (Normal); Ketone-Dipstick Negative (Negative); Leukocyte Esterase-Dipstick Negative /ul (Negative); Nitrite-Dipstick Negative (Negative); Occult Blood-Urine Negative /ul (Negative); Protein-Dipstick 30 mg/dl (Negative); Specific Gravity, Urine 1.010 (1.002-1.030); Urine Bilirubin Dipstick Negative (Negative)
[2025-11-22 13:11] VITALS: BP 101/61; PULSE 56; RESP 20; TEMP 36.7; O2SAT 93
[2025-11-22 13:19] VITALS: BP 101/61; PULSE 56; RESP 20; TEMP 36.7; O2SAT 93
== END 2025-11-22 13:19 | disposition home or self-care (01) ==
PROVIDERS: Emergency Medicine; Internal Medicine; Emergency Provider Emergency Medicine; PCP Family Medicine; Visit Provider Emergency Medicine
DX: M79.604 Pain in right leg (principal); I48.0 Paroxysmal atrial fibrillation; M79.605 Pain in left leg; R79.82 Elevated C-reactive protein (CRP); R79.89 Other specified abnormal findings of blood chemistry; M48.061 Spinal stenosis, lumbar region without neurogenic claudication; I11.9 Hypertensive heart disease without heart failure; R53.1 Weakness; R26.2 Difficulty in walking, not elsewhere classified; M54.16 Radiculopathy, lumbar region; R09.89 Other specified symptoms and signs involving the circulatory and respiratory systems; E66.9 Obesity, unspecified; F41.9 Anxiety disorder, unspecified; G47.33 Obstructive sleep apnea (adult) (pediatric); Z79.899 Other long term (current) drug therapy
CPT/HCPCS: 71045; 72148; 75635; 80048; 81001; 82550; 83880; 84550; 85025; 85610; 85652; 85730; 86140; 93926; 96374; 96375; 99283; Q9967; A4216; J2405